=== PATIENT | female | born 1980 | race Two or more races ===

== ENCOUNTER 2022-09-11 08:07 | Emergency (ER) | payer MEDICAID, OTHER ==
[~2022-09-11] VITALS: Ht 157.5 cm; Wt 90.9 kg
[2022-09-11 08:51] LABS: Basophils # (auto) 0 10 ^3/uL (0-0.2); Basophils % (auto) 0.4 % (0.0-2.0); Eosinophils # (auto) 0 10 ^3/uL (0-0.8); Eosinophils % (auto) 0.4 % (0.0-7.0); Hemoglobin 10.5 g/dL (12.2-16.2); Monocytes # (auto) 0.5 10 ^3/uL (0-1.3); Monocytes % (auto) 8.6 % (0.0-12.0); Neutrophils # (auto) 3.8 10 ^3/uL (1.6-8.6); White Blood Cell 5.3 10^3/uL (4.4-10.8)
[2022-09-11 08:53] LABS: Hematocrit 30.9 % (36.0-46.0); Mean Corpuscular Hemoglobin 43.1 pg (28.0-32.0); Mean Corpuscular Hgb Conc. 34.1 g/dL (32.0-36.0); Mean Corpuscular Volume 126.4 fL (80.0-100.0); Neutrophils % (auto) 71.6 % (37.0-80.0); Red Blood Cells 2.44 10^6/uL (4.0-5.20); Red Cell Distribution Width 13.8 % (11.8-14.3)
[2022-09-11 09:12] LABS: INR 1.53 (0.9-1.15); Partial Thromboplastin Time 27.8 SEC (24.5-34.5)
[2022-09-11 09:20] LABS: Albumin 1.7 g/dL (3.4-5.0); Calcium 7.9 mg/dL (8.5-10.1)
[2022-09-11 09:23] LABS: BUN/Creatinine Ratio 3.2 (10.0-20.0); Bilirubin, Total 16.8 mg/dL (0.2-1.0); Total Protein 6.7 g/dL (6.4-8.2)
[2022-09-11 10:12] LABS: Potassium 2.9 mmol/L (3.5-5.1)
[2022-09-11] MEDS ORDERED: POTASSIUM CHL 20MEQ/100ML 100 ML IV ONE (10:15)
[2022-09-11] MEDS ORDERED: LACTULOSE 20Gm/30ML SOLN PO ONE (11:45)
[2022-09-11] MEDS ORDERED: LORazepam 2MG/ML-1ML VIAL IV ONE (12:00)
[2022-09-11 16:35] VITALS: BP 134/114
== END 2022-09-11 17:01 | disposition short-term general hospital (02) ==
LOC: EDBD 08:07 → ER 08:07
DX: K76.82 Hepatic encephalopathy (principal); R41.82 Altered mental status, unspecified; E11.9 Type 2 diabetes mellitus without complications; I10 Essential (primary) hypertension; Z90.49 Acquired absence of other specified parts of digestive tract
CPT/HCPCS: 36415; 70450; 71045; 80053; 82140; 82962; 83735; 83880; 84484; 85025; 85610; 85730; 93005; 96361; 96374; 99291; J2060; J3480

== ENCOUNTER 2022-11-13 15:41 | Inpatient (IN) | payer MEDICAID, OTHER ==
[~2022-11-13] VITALS: Ht 172.7 cm; Wt 100.1 kg
[2022-11-13] MEDS ORDERED: MIDAZOLAM HCL 5 MG/ML-1ML VIAL IV ONE (16:00)
[2022-11-13] MEDS ORDERED: MIDAZOLAM DRIP 50 mg/50mL 50 ML IV ONE (16:04)
[2022-11-13] MEDS ORDERED: cefTRIAXone 1GM/50ML D5W 50 ML IV ONE (16:30)
[2022-11-13] MEDS: MIDAZOLAM DRIP 50 mg/50mL 50 ML IV SCH (16:30)
[2022-11-13 16:32] VITALS: PULSE 106; RESP 16; O2SAT 100
[2022-11-13 16:36] LABS: Basophils # (auto) 0 10 ^3/uL (0-0.2); Eosinophils # (auto) 0.1 10 ^3/uL (0-0.8); Lymphocytes # (auto) 1.4 10 ^3/uL (0.4-5.4); Lymphocytes % (auto) 13.7 % (10.0-50.0); Mean Corpuscular Hgb Conc. 36.1 g/dL (32.0-36.0); Neutrophils # (auto) 7.6 10 ^3/uL (1.6-8.6); Red Blood Cells 2.52 10^6/uL (4.0-5.20)
[2022-11-13 16:37] LABS: Basophils % (auto) 0.4 % (0.0-2.0); Eosinophils % (auto) 0.8 % (0.0-7.0); Hemoglobin 9.8 g/dL (12.2-16.2); Mean Corpuscular Hemoglobin 38.8 pg (28.0-32.0); Mean Corpuscular Volume 107.4 fL (80.0-100.0); Monocytes # (auto) 1.2 10 ^3/uL (0-1.3); Monocytes % (auto) 11.9 % (0.0-12.0); Neutrophils % (auto) 73.2 % (37.0-80.0); Nucleated Red Blood Cells % 0.2 %; Red Cell Distribution Width 16.4 % (11.8-14.3); White Blood Cell 10.3 10^3/uL (4.4-10.8)
[2022-11-13 16:49] LABS: Alanine Aminotransferase 43 U/L (7-40); Albumin 1.8 g/dL (3.2-4.8); Alkaline Phosphatase 201 U/L (46-116); Aspartate Aminotransferase 257 U/L (13-40); Bilirubin, Total 13.8 mg/dL (0.2-1.0); Blood Urea Nitrogen 26 mg/dL (9-23); Calcium 7.7 mg/dL (8.7-10.4); Chloride 107 mmol/L (98-107); Glucose 65 mg/dL (74-106); Potassium 4.1 mmol/L (3.5-5.1); Sodium 137 mmol/L (136-145)
[2022-11-13 16:50] LABS: Total Protein 6.7 g/dL (5.7-8.2)
[2022-11-13 16:54] LABS: INR 1.8 (0.9-1.15); Partial Thromboplastin Time 39.8 SEC (24.5-34.5); Prothrombin Time 18.2 sec (9.3-11.8)
[2022-11-13 16:58] LABS: Urine Bacteria FEW /hpf (None Seen); Urine Blood 3+ /uL (Negative); Urine Clarity HAZY (Clear); Urine Color Brown (Yellow); Urine Mucus FEW (None Seen); Urine Protein, UAD 1+ (Negative); Urine Specific Gravity 1.017 (1.001-1.035); Urine WBC 35 /hpf (0 - 5); Urine WBC Clumps PRESENT /hpf (None Seen)
[2022-11-13 17:05] VITALS: BP 117/73; PULSE 106; RESP 16; O2SAT 99
[2022-11-13 17:17] LABS: Lactic Acid w/Reflex 2.2 mmol/L (0.4-2.0)
[2022-11-13 17:39] LABS: BUN/Creatinine Ratio 10.3 (10.0-20.0)
[2022-11-13] MEDS ORDERED: LACTULOSE 20Gm/30ML SOLN PO ONE ×2 (17:45→18:30)
[2022-11-13 18:13] LABS: Base Excess -0.8 mmol/L (-2.0-2.0)
[2022-11-13] MEDS ORDERED: PANTOPRAZOLE 40 MG/10 ML VIAL INJ IV ONE (18:30)
[2022-11-13] MEDS ORDERED: NITROGLYCERIN 0.4 MG SL TAB SL PRN (18:30)
[2022-11-13] MEDS ORDERED: MORPHINE SULFATE INJ 2 MG/ml SYRG IV PRN (18:30)
[2022-11-13 18:52] VITALS: BP 137/72; PULSE 107; RESP 22; O2SAT 99
[2022-11-13] MEDS: SODIUM CHLORIDE 0.9% 1,000 ML IV SCH (18:54)
[2022-11-13] MEDS ORDERED: DEXTROSE (50%) 50ML SYRG IV PRN (19:15)
[2022-11-13 19:26] LABS: LDL Cholesterol 32 mg/dL (< 100)
[2022-11-13 19:27] LABS: Cholesterol 77 mg/dL (< 200)
[2022-11-13 19:30] VITALS: PULSE 106; RESP 22; O2SAT 94
[2022-11-13 19:41] LABS: Triglycerides 166 mg/dL (< 150)
[2022-11-13 19:57] VITALS: BP 129/78; PULSE 111; RESP 22; O2SAT 96
[2022-11-13 19:57] LABS: Base Excess -1.7 mmol/L (-2.0-2.0)
[2022-11-13 20:20] LABS: HDL Cholesterol < 5 mg/dL (40-59)
[2022-11-13 21:54] VITALS: BP 134/76; PULSE 108; RESP 22; O2SAT 99
[2022-11-13] MEDS: InsuLIN REG 1unit/0.01ml Soln (100units/ml) SC SCH (22:00)
[2022-11-13] MEDS: ACCU-CHEK COMFORT CURVE STRIP VI SCH (22:25)
[2022-11-13] MEDS: rifAXIMin 550 MG TAB GT SCH (22:31)
[2022-11-13] MEDS: LACTULOSE 20Gm/30ML SOLN PO SCH (22:31)
[2022-11-14] VITALS (34 sets, daily range): BP systolic 104–146; BP diastolic 52–87; PULSE 73–101; RESP 14–26; TEMP 97.6–97.8; O2SAT 97–100
[2022-11-14 01:14] LABS: Lactic Acid w/Reflex 2.2 mmol/L (0.4-2.0)
[2022-11-14 05:04] LABS: Amphetamine Screen, Urine Pos (NEGATIVE); Barbiturate Scree,Urine Neg (NEGATIVE); Benzodiazephine Screen, Urine Pos (NEGATIVE); Cocaine Screen, Urine Neg (NEGATIVE)
[2022-11-14 05:05] LABS: Cannabinoid Screen, Urine Neg (NEGATIVE); Opiate Scree,Urine Neg (NEGATIVE); Phencyclidine Screen, Urine Neg (NEGATIVE)
[2022-11-14 05:57] LABS: Base Excess -0.5 mmol/L (-2.0-2.0)
[2022-11-14] MEDS: rifAXIMin 550 MG TAB GT SCH ×4 (06:04→22:00)
[2022-11-14] MEDS: LACTULOSE 20Gm/30ML SOLN PO SCH ×4 (06:04→22:00)
[2022-11-14 06:20] LABS: Alanine Aminotransferase 54 U/L (7-40); Albumin 1.7 g/dL (3.2-4.8); Alkaline Phosphatase 199 U/L (46-116); Anion Gap 7.9 (5-15); Aspartate Aminotransferase 293 U/L (13-40); Bilirubin, Total 12.3 mg/dL (0.2-1.0); Blood Urea Nitrogen 23 mg/dL (9-23); Calcium 7.5 mg/dL (8.5-10.1); Carbon Dioxide 21.1 mmol/L (20-30); Chloride 109 mmol/L (98-107); Glucose 99 mg/dL (74-106); Potassium 3.7 mmol/L (3.5-5.1); Sodium 138 mmol/L (136-145); Total Protein 6.1 g/dL (5.7-8.2)
[2022-11-14] MEDS: ACCU-CHEK COMFORT CURVE STRIP VI SCH ×4 (06:31→21:51)
[2022-11-14] MEDS: InsuLIN REG 1unit/0.01ml Soln (100units/ml) SC SCH ×4 (06:32→21:55)
[2022-11-14 07:09] LABS: BUN/Creatinine Ratio 7.8 (10.0-20.0)
[2022-11-14 08:04] LABS: Basophils # (auto) 0.1 10 ^3/uL (0-0.2); Eosinophils # (auto) 0 10 ^3/uL (0-0.8); Hematocrit 26.1 % (36.0-46.0); Hemoglobin 8.8 g/dL (12.2-16.2); Mean Corpuscular Hemoglobin 34.5 pg (28.0-32.0); Mean Corpuscular Hgb Conc. 33.8 g/dL (32.0-36.0); Red Cell Distribution Width 17.3 % (11.8-14.3)
[2022-11-14 08:06] LABS: Basophils % (auto) 0.9 % (0.0-2.0); Eosinophils % (auto) 0.4 % (0.0-7.0); Lymphocytes # (auto) 2.1 10 ^3/uL (0.4-5.4); Lymphocytes % (auto) 17.3 % (10.0-50.0); Mean Corpuscular Volume 102.1 fL (80.0-100.0); Monocytes # (auto) 1.1 10 ^3/uL (0-1.3); Monocytes % (auto) 9.4 % (0.0-12.0); Neutrophils # (auto) 8.7 10 ^3/uL (1.6-8.6); Nucleated Red Blood Cells % 0.4 %; Red Blood Cells 2.55 10^6/uL (4.0-5.20); White Blood Cell 12.1 10^3/uL (4.4-10.8)
[2022-11-14] MEDS ORDERED: cefTRIAXone 1GM/50ML D5W 50 ML IV SCH (09:00)
[2022-11-14] MEDS: PANTOPRAZOLE 40 MG/10 ML VIAL INJ IV SCH (09:41)
[2022-11-14 09:47] LABS: Urine Bacteria FEW /hpf (None Seen); Urine Blood 3+ /uL (Negative); Urine Clarity CLOUDY (Clear); Urine Color Brown (Yellow); Urine Mucus FEW (None Seen); Urine Protein, UAD 2+ (Negative); Urine Specific Gravity 1.019 (1.001-1.035); Urine WBC 1184 /hpf (0 - 5); Urine WBC Clumps PRESENT /hpf (None Seen)
[2022-11-14] MEDS: ALBUMIN 25% 50 ML IV SCH ×2 (09:59→16:28)
[2022-11-14] MEDS ORDERED: FUROSEMIDE 100 MG/10ML VIAL IV ONE (10:00)
[2022-11-14 10:16] LABS: Creatinine, Urine 227.94 mg/dL (30.0-125.0); Protein, Urine 159.3 mg/dL (0.0-11.9)
[2022-11-14 11:08] LABS: Hepatitis B Surface Antigen Negative (Negative)
[2022-11-14] MEDS: SODIUM CHLORIDE 0.9% 1,000 ML IV SCH (11:25)
[2022-11-14 11:29] LABS: Hepatitis A Ab IgM Negative
[2022-11-14 11:30] LABS: Hepatitis B Core IgM Negative; Hepatitis C Antibody Negative (Negative)
[2022-11-14] MEDS: fentaNYL Drip 2500mCg/250mlNS 250 ML IV SCH (11:30)
[2022-11-14] MEDS ORDERED: MEROPENEM 1GM IVPB 100 ML IV ONE (11:30)
[2022-11-14] MEDS ORDERED: MIDODRINE HCL 10 MG TAB PO ONE (11:30)
[2022-11-14] MEDS: MIDODRINE HCL 10 MG TAB PO SCH ×2 (12:00→16:40)
[2022-11-14] MEDS: OCTREOTIDE ACETATE 100 MCG/ML VL SUBCUT SCH ×2 (12:20→21:52)
[2022-11-14] MEDS: MEROPENEM 1GM IVPB 100 ML IV SCH ×2 (12:49→23:00)
[2022-11-14] MEDS: MIDAZOLAM DRIP 50 mg/50mL 50 ML IV SCH ×2 (16:04→19:58)
[2022-11-14] MEDS ORDERED: phytonadione 10 MG in SODIUM CHL 0.9% 50 ML IV ONE (23:15)
[2022-11-15] VITALS (110 sets, daily range): BP systolic 100–169; BP diastolic 32–108; PULSE 73–91; RESP 10–22; TEMP 97.7–98.5; O2SAT 94–100
[2022-11-15] MEDS: ALBUMIN 25% 50 ML IV SCH (01:24)
[2022-11-15] MEDS: ALBUTEROL SULF 2.5 MG/0.5ML(0.5%) NEB SOLN NEB PRN (02:29)
[2022-11-15] MEDS: MIDAZOLAM DRIP 50 mg/50mL 50 ML IV SCH ×3 (02:29→18:18)
[2022-11-15] MEDS: SODIUM CHLORIDE 0.9% 1,000 ML IV SCH ×3 (03:50→19:59)
[2022-11-15 04:31] LABS: Alanine Aminotransferase 52 U/L (7-40); Albumin 2.1 g/dL (3.2-4.8); Alkaline Phosphatase 183 U/L (46-116); Anion Gap 8.4 (5-15); Aspartate Aminotransferase 259 U/L (13-40); Bilirubin, Total 15.3 mg/dL (0.2-1.0); Blood Urea Nitrogen 24 mg/dL (9-23); Carbon Dioxide 21.6 mmol/L (20-30); Chloride 110 mmol/L (98-107); Glucose 109 mg/dL (74-106); Potassium 3.3 mmol/L (3.5-5.1); Sodium 140 mmol/L (136-145); Total Protein 6.3 g/dL (5.7-8.2)
[2022-11-15 04:43] LABS: BUN/Creatinine Ratio 7.8 (10.0-20.0)
[2022-11-15 05:17] LABS: INR 1.7 (0.9-1.15); Prothrombin Time 17.2 sec (9.3-11.8)
[2022-11-15 05:41] LABS: Basophils % (auto) 0.5 % (0.0-2.0); Eosinophils # (auto) 0.1 10 ^3/uL (0-0.8); Red Blood Cells 2.35 10^6/uL (4.0-5.20)
[2022-11-15 05:42] LABS: Basophils # (auto) 0 10 ^3/uL (0-0.2); Hematocrit 23.9 % (36.0-46.0); Hemoglobin 8.1 g/dL (12.2-16.2); Lymphocytes # (auto) 1.9 10 ^3/uL (0.4-5.4); Mean Corpuscular Hemoglobin 34.4 pg (28.0-32.0); Mean Corpuscular Hgb Conc. 33.7 g/dL (32.0-36.0); Mean Corpuscular Volume 102.1 fL (80.0-100.0); Monocytes % (auto) 8.7 % (0.0-12.0); Neutrophils % (auto) 72.8 % (37.0-80.0); Nucleated Red Blood Cells % 0.2 %; Red Cell Distribution Width 17.1 % (11.8-14.3)
[2022-11-15] MEDS: LACTULOSE 20Gm/30ML SOLN PO SCH ×3 (06:00→22:24)
[2022-11-15] MEDS: InsuLIN REG 1unit/0.01ml Soln (100units/ml) SC SCH ×4 (07:00→22:00)
[2022-11-15] MEDS: rifAXIMin 550 MG TAB GT SCH ×3 (07:01→22:24)
[2022-11-15] MEDS: MEROPENEM 1GM IVPB 100 ML IV SCH ×3 (07:01→22:24)
[2022-11-15] MEDS: OCTREOTIDE ACETATE 100 MCG/ML VL SUBCUT SCH ×3 (07:02→22:25)
[2022-11-15] MEDS: MIDODRINE HCL 10 MG TAB PO SCH ×3 (07:02→22:32)
[2022-11-15] MEDS: ACCU-CHEK COMFORT CURVE STRIP VI SCH ×4 (07:02→22:25)
[2022-11-15 07:24] LABS: Base Excess -3.2 mmol/L (-2.0-2.0)
[2022-11-15] MEDS: PANTOPRAZOLE 40 MG/10 ML VIAL INJ IV SCH (09:37)
[2022-11-15] MEDS: fentaNYL Drip 2500mCg/250mlNS 250 ML IV SCH (11:53)
[2022-11-15] MEDS ORDERED: FUROSEMIDE 100 MG/10ML VIAL IV ONE (12:00)
[2022-11-15] MEDS: POTASSIUM CHL 20MEQ/100ML 100 ML IV SCH ×3 (12:48→16:43)
[2022-11-15] MEDS ORDERED: Nepro With Carb Steady 1 Liter Bottle GT SCH (15:45)
[2022-11-15] MEDS ORDERED: THIAMINE 100mg/ml INJ (200mg/2ml VIAL) IV ONE (16:45)
[2022-11-15] MEDS ORDERED: VANCOMYCIN PER PHARMACY 0 MG IV SCH (23:30)
[2022-11-15] MEDS ORDERED: VANCOMYCIN 1GM/250ML 250 ML IV ONE (23:45)
[2022-11-16] VITALS (107 sets, daily range): BP systolic 102–143; BP diastolic 40–84; PULSE 71–91; RESP 12–18; TEMP 95.9–99.9; O2SAT 93–100
[2022-11-16] MEDS: MIDAZOLAM DRIP 50 mg/50mL 50 ML IV SCH ×4 (02:08→21:38)
[2022-11-16 04:32] LABS: Alanine Aminotransferase 78 U/L (7-40); Alkaline Phosphatase 211 U/L (46-116); Anion Gap 7.5 (5-15); Blood Urea Nitrogen 33 mg/dL (9-23); Calcium 8.2 mg/dL (8.7-10.4); Carbon Dioxide 22.5 mmol/L (20-30); Chloride 111 mmol/L (98-107); Glucose 84 mg/dL (74-106); Potassium 3.8 mmol/L (3.5-5.1); Sodium 141 mmol/L (136-145)
[2022-11-16 04:33] LABS: Albumin 2.1 g/dL (3.2-4.8)
[2022-11-16 04:34] LABS: Aspartate Aminotransferase 317 U/L (13-40); Bilirubin, Total 16.6 mg/dL (0.2-1.0); Total Protein 6.4 g/dL (5.7-8.2)
[2022-11-16 04:35] LABS: Hemoglobin 8.2 g/dL (12.2-16.2)
[2022-11-16 04:38] LABS: Hematocrit 23.3 % (36.0-46.0); Mean Corpuscular Hemoglobin 37.6 pg (28.0-32.0); Mean Corpuscular Hgb Conc. 35.3 g/dL (32.0-36.0); Mean Corpuscular Volume 106.7 fL (80.0-100.0); Red Blood Cells 2.18 10^6/uL (4.0-5.20); Red Cell Distribution Width 16.9 % (11.8-14.3); White Blood Cell 9.8 10^3/uL (4.4-10.8)
[2022-11-16 04:44] LABS: Basophils % (manual) 0 (0.0-2.0); Blast Cells 0; Eosinophils % (manual) 0 (0-7); Metamyelocytes % 0; Myelocytes % 0; Promyelocytes % 0; Reactive Lymphocytes 0
[2022-11-16 04:45] LABS: BUN/Creatinine Ratio 9.6 (10.0-20.0)
[2022-11-16] MEDS: rifAXIMin 550 MG TAB GT SCH ×3 (05:14→21:42)
[2022-11-16] MEDS: LACTULOSE 20Gm/30ML SOLN PO SCH ×3 (05:15→23:40)
[2022-11-16] MEDS: MIDODRINE HCL 10 MG TAB PO SCH ×3 (05:15→18:35)
[2022-11-16] MEDS: ACCU-CHEK COMFORT CURVE STRIP VI SCH ×4 (05:16→21:42)
[2022-11-16] MEDS: OCTREOTIDE ACETATE 100 MCG/ML VL SUBCUT SCH ×3 (05:16→21:42)
[2022-11-16] MEDS: InsuLIN REG 1unit/0.01ml Soln (100units/ml) SC SCH ×4 (05:43→21:48)
[2022-11-16 05:45] LABS: Band Neutrophils % (manual) 1; Lymphocytes % (manual) 12 (10.0-50.0); Monocytes % (manual) 5 (0-12)
[2022-11-16 05:47] LABS: Platelet Estimate Adequate
[2022-11-16 07:45] LABS: Base Excess -5.2 mmol/L (-2.0-2.0)
[2022-11-16] MEDS: THIAMINE 100mg/ml INJ (200mg/2ml VIAL) IV SCH (09:57)
[2022-11-16] MEDS: PANTOPRAZOLE 40 MG/10 ML VIAL INJ IV SCH (09:58)
[2022-11-16] MEDS ORDERED: methylPREDNISolone SOD SUCC 40 MG/ML VL IV SCH (10:00)
[2022-11-16] MEDS: fentaNYL Drip 2500mCg/250mlNS 250 ML IV SCH (10:03)
[2022-11-16 10:07] LABS: Anti-Nuclear Antibody Direct Negative (Negative)
[2022-11-16] MEDS: MEROPENEM 1GM IVPB 100 ML IV SCH ×2 (14:28→21:42)
[2022-11-16] MEDS ORDERED: BUMETANIDE 2.5mg/10ml (0.25 mg/ml) INJ IV ONE (14:45)
[2022-11-16] MEDS ORDERED: phytonadione 10 MG in SODIUM CHL 0.9% 50 ML IV ONE (21:30)
[2022-11-17] VITALS (104 sets, daily range): BP systolic 82–132; BP diastolic 27–74; PULSE 51–86; RESP 12–17; TEMP 95.7–99.9; O2SAT 93–99
[2022-11-17 04:55] LABS: INR 1.71 (0.9-1.15); Partial Thromboplastin Time 36.6 SEC (24.5-34.5); Prothrombin Time 17.3 sec (9.3-11.8)
[2022-11-17 05:04] LABS: Alanine Aminotransferase 80 U/L (7-40); Albumin 1.9 g/dL (3.2-4.8); Alkaline Phosphatase 237 U/L (46-116); Anion Gap 8.1 (5-15); Aspartate Aminotransferase 307 U/L (13-40); Bilirubin, Total 13.9 mg/dL (0.2-1.0); Calcium 7.8 mg/dL (8.7-10.4); Carbon Dioxide 21.9 mmol/L (20-30); Chloride 111 mmol/L (98-107); Glucose 103 mg/dL (74-106); Potassium 3.9 mmol/L (3.5-5.1); Sodium 141 mmol/L (136-145); Total Protein 5.9 g/dL (5.7-8.2)
[2022-11-17 05:32] LABS: BUN/Creatinine Ratio 8.8 (10.0-20.0); Blood Urea Nitrogen 33 mg/dL (9-23)
[2022-11-17] MEDS: LACTULOSE 20Gm/30ML SOLN PO SCH ×5 (05:33→23:45)
[2022-11-17] MEDS: MIDODRINE HCL 10 MG TAB PO SCH ×3 (05:33→16:42)
[2022-11-17] MEDS: rifAXIMin 550 MG TAB GT SCH ×3 (05:33→21:40)
[2022-11-17] MEDS: InsuLIN REG 1unit/0.01ml Soln (100units/ml) SC SCH ×4 (05:34→21:42)
[2022-11-17] MEDS: OCTREOTIDE ACETATE 100 MCG/ML VL SUBCUT SCH ×3 (05:54→21:41)
[2022-11-17] MEDS: ACCU-CHEK COMFORT CURVE STRIP VI SCH ×4 (05:54→21:40)
[2022-11-17 06:00] LABS: Basophils # (auto) 0 10 ^3/uL (0-0.2); Basophils % (auto) 0.2 % (0.0-2.0); Eosinophils # (auto) 0 10 ^3/uL (0-0.8); Hematocrit 23.3 % (36.0-46.0); Hemoglobin 7.7 g/dL (12.2-16.2); Lymphocytes # (auto) 1.1 10 ^3/uL (0.4-5.4); Lymphocytes % (auto) 10.5 % (10.0-50.0); Mean Corpuscular Hemoglobin 33.9 pg (28.0-32.0); Mean Corpuscular Volume 102.7 fL (80.0-100.0); Monocytes # (auto) 0.2 10 ^3/uL (0-1.3); Neutrophils # (auto) 8.7 10 ^3/uL (1.6-8.6); Neutrophils % (auto) 87.3 % (37.0-80.0); Nucleated Red Blood Cells % 0.3 %; Red Blood Cells 2.27 10^6/uL (4.0-5.20); Red Cell Distribution Width 17.1 % (11.8-14.3)
[2022-11-17 07:21] LABS: Base Excess -2.9 mmol/L (-2.0-2.0)
[2022-11-17] MEDS: THIAMINE 100mg/ml INJ (200mg/2ml VIAL) IV SCH (08:40)
[2022-11-17] MEDS: PANTOPRAZOLE 40 MG/10 ML VIAL INJ IV SCH (08:40)
[2022-11-17] MEDS: methylPREDNISolone SOD SUCC 40 MG/ML VL IV SCH (08:40)
[2022-11-17] MEDS: MEROPENEM 1GM IVPB 100 ML IV SCH ×2 (08:41→21:40)
[2022-11-17] MEDS: MIDAZOLAM DRIP 50 mg/50mL 50 ML IV SCH ×2 (08:41→23:45)
[2022-11-17] MEDS: fentaNYL Drip 2500mCg/250mlNS 250 ML IV SCH (09:01)
[2022-11-17] MEDS ORDERED: VANCOMYCIN 1GM/250ML 250 ML IV ONE (10:30)
[2022-11-17] MEDS: ALBUMIN 25% 100 ML IV SCH ×2 (15:00→23:45)
[2022-11-17] MEDS: FUROSEMIDE INJECTION 100 MG in SODIUM CHL 0.9% 100 ML IV SCH (16:35)
[2022-11-17] MEDS: NOREPINEPHRINE 8 MG/250ML KIT 250 ML IV SCH (19:30)
[2022-11-17] MEDS: MUPIROCIN 2% OINT 15gm or 22gm FOR MRSA NARES TOP SCH (21:42)
[2022-11-18] VITALS (107 sets, daily range): BP systolic 93–122; BP diastolic 37–63; PULSE 49–94; RESP 13–18; TEMP 93–99.5; O2SAT 91–99
[2022-11-18] MEDS: FUROSEMIDE INJECTION 100 MG in SODIUM CHL 0.9% 100 ML IV SCH ×7 (00:02→23:34)
[2022-11-18 05:13] LABS: % Iron Saturation 24.1 % (15-50)
[2022-11-18 05:32] LABS: Alanine Aminotransferase 91 U/L (7-40); Albumin 2.6 g/dL (3.2-4.8); Alkaline Phosphatase 231 U/L (46-116); Anion Gap 7.6 (5-15); Aspartate Aminotransferase 345 U/L (13-40); Blood Urea Nitrogen 42 mg/dL (9-23); Calcium 8.2 mg/dL (8.7-10.4); Carbon Dioxide 21.4 mmol/L (20-30); Chloride 111 mmol/L (98-107); Glucose 123 mg/dL (74-106); Potassium 3.4 mmol/L (3.5-5.1); Sodium 140 mmol/L (136-145)
[2022-11-18 05:33] LABS: Bilirubin, Total 15.8 mg/dL (0.2-1.0); Total Protein 6.3 g/dL (5.7-8.2)
[2022-11-18 05:39] LABS: BUN/Creatinine Ratio 9.9 (10.0-20.0)
[2022-11-18] MEDS: ACCU-CHEK COMFORT CURVE STRIP VI SCH ×4 (05:52→21:22)
[2022-11-18] MEDS: InsuLIN REG 1unit/0.01ml Soln (100units/ml) SC SCH ×4 (05:54→21:50)
[2022-11-18 06:09] LABS: Eosinophils # (auto) 0 10 ^3/uL (0-0.8); Hemoglobin 7.2 g/dL (12.2-16.2)
[2022-11-18 06:11] LABS: Basophils # (auto) 0.1 10 ^3/uL (0-0.2); Basophils % (auto) 0.4 % (0.0-2.0); Hematocrit 21.6 % (36.0-46.0); Lymphocytes # (auto) 1.4 10 ^3/uL (0.4-5.4); Lymphocytes % (auto) 10.5 % (10.0-50.0); Mean Corpuscular Hemoglobin 34.2 pg (28.0-32.0); Mean Corpuscular Hgb Conc. 33.1 g/dL (32.0-36.0); Mean Corpuscular Volume 103.3 fL (80.0-100.0); Monocytes # (auto) 0.4 10 ^3/uL (0-1.3); Monocytes % (auto) 2.8 % (0.0-12.0); Neutrophils # (auto) 11.7 10 ^3/uL (1.6-8.6); Neutrophils % (auto) 86.3 % (37.0-80.0); Nucleated Red Blood Cells % 0.2 %; Red Blood Cells 2.09 10^6/uL (4.0-5.20); Red Cell Distribution Width 17.4 % (11.8-14.3); White Blood Cell 13.6 10^3/uL (4.4-10.8)
[2022-11-18] MEDS: LACTULOSE 20Gm/30ML SOLN PO SCH ×4 (06:33→23:21)
[2022-11-18] MEDS: rifAXIMin 550 MG TAB GT SCH ×3 (06:33→21:20)
[2022-11-18] MEDS: MIDODRINE HCL 10 MG TAB PO SCH ×3 (06:34→16:52)
[2022-11-18] MEDS: OCTREOTIDE ACETATE 100 MCG/ML VL SUBCUT SCH ×3 (06:34→21:21)
[2022-11-18] MEDS: ALBUMIN 25% 100 ML IV SCH (06:34)
[2022-11-18] MEDS: fentaNYL Drip 2500mCg/250mlNS 250 ML IV SCH (06:37)
[2022-11-18] MEDS ORDERED: SODIUM CHL 0.9% 1000 ML BAG XX ONE (07:00)
[2022-11-18 07:35] LABS: Base Excess -3.1 mmol/L (-2.0-2.0)
[2022-11-18] MEDS: DOPamine 1600MCG/ML D5W 250 ML IV SCH ×2 (09:00→16:53)
[2022-11-18] MEDS: ACETYLCYSTEINE 10 %(100MG/ML) SOL 4ML NEB SCH ×3 (09:00→19:10)
[2022-11-18] MEDS: ALBUTEROL SULF 2.5 MG/0.5ML(0.5%) NEB SOLN NEB PRN (09:01)
[2022-11-18] MEDS: THIAMINE 100mg/ml INJ (200mg/2ml VIAL) IV SCH (09:30)
[2022-11-18] MEDS: methylPREDNISolone SOD SUCC 40 MG/ML VL IV SCH (09:30)
[2022-11-18] MEDS: PANTOPRAZOLE 40 MG/10 ML VIAL INJ IV SCH (09:30)
[2022-11-18] MEDS: MEROPENEM 1GM IVPB 100 ML IV SCH (09:30)
[2022-11-18] MEDS: MUPIROCIN 2% OINT 15gm or 22gm FOR MRSA NARES TOP SCH ×2 (09:31→21:23)
[2022-11-18] MEDS: NOREPINEPHRINE 8 MG/250ML KIT 250 ML IV SCH (13:04)
[2022-11-18] MEDS: SODIUM FERR GLUC 62.5MG/5ML 125 MG in SODIUM CHL 0.9% 100 ML IV SCH (13:08)
[2022-11-18] MEDS: ALBUTEROL SULF 2.5 MG/0.5ML(0.5%) NEB SOLN NEB SCH ×2 (13:50→19:09)
[2022-11-18] MEDS: IPRATROPIUM BROM 0.5 MG/2.5ML INH SOL NEB SCH ×2 (13:51→19:10)
[2022-11-18] MEDS ORDERED: VANCOMYCIN 500 MG in D5W 5% 100 ML IV ONE (18:00)
[2022-11-18] MEDS: MIDAZOLAM DRIP 50 mg/50mL 50 ML IV SCH (18:35)
[2022-11-18] MEDS: MEROPENEM 500MG IVPB 50 ML IV SCH (21:22)
[2022-11-19] VITALS (109 sets, daily range): BP systolic 99–141; BP diastolic 40–85; PULSE 53–83; RESP 14–20; TEMP 95.7–99; O2SAT 91–99
[2022-11-19] MEDS: ALBUTEROL SULF 2.5 MG/0.5ML(0.5%) NEB SOLN NEB SCH ×4 (00:37→18:10)
[2022-11-19] MEDS: ACETYLCYSTEINE 10 %(100MG/ML) SOL 4ML NEB SCH (00:37)
[2022-11-19] MEDS: IPRATROPIUM BROM 0.5 MG/2.5ML INH SOL NEB SCH ×4 (00:37→18:10)
[2022-11-19] MEDS: FUROSEMIDE INJECTION 100 MG in SODIUM CHL 0.9% 100 ML IV SCH ×6 (03:21→21:22)
[2022-11-19] MEDS: DOPamine 1600MCG/ML D5W 250 ML IV SCH ×2 (03:59→10:26)
[2022-11-19 04:07] LABS: Basophils # (auto) 0 10 ^3/uL (0-0.2); Basophils % (auto) 0.2 % (0.0-2.0); Eosinophils # (auto) 0 10 ^3/uL (0-0.8); Hematocrit 29.8 % (36.0-46.0); Hemoglobin 10.5 g/dL (12.2-16.2); Lymphocytes # (auto) 0.4 10 ^3/uL (0.4-5.4); Lymphocytes % (auto) 4.3 % (10.0-50.0); Mean Corpuscular Hemoglobin 37.5 pg (28.0-32.0); Mean Corpuscular Hgb Conc. 35.3 g/dL (32.0-36.0); Mean Corpuscular Volume 106.4 fL (80.0-100.0); Monocytes # (auto) 0.3 10 ^3/uL (0-1.3); Neutrophils # (auto) 8.5 10 ^3/uL (1.6-8.6); Neutrophils % (auto) 92.5 % (37.0-80.0); Nucleated Red Blood Cells % 0.4 %; Red Cell Distribution Width 16.7 % (11.8-14.3); White Blood Cell 9.2 10^3/uL (4.4-10.8)
[2022-11-19] MEDS: rifAXIMin 550 MG TAB GT SCH ×3 (05:06→21:23)
[2022-11-19] MEDS: MIDODRINE HCL 10 MG TAB PO SCH ×3 (05:06→17:21)
[2022-11-19] MEDS: LACTULOSE 20Gm/30ML SOLN PO SCH ×3 (05:07→17:21)
[2022-11-19] MEDS: OCTREOTIDE ACETATE 100 MCG/ML VL SUBCUT SCH ×3 (05:07→21:23)
[2022-11-19] MEDS: ACCU-CHEK COMFORT CURVE STRIP VI SCH ×4 (06:10→21:23)
[2022-11-19] MEDS: InsuLIN REG 1unit/0.01ml Soln (100units/ml) SC SCH ×4 (06:11→21:39)
[2022-11-19] MEDS: MIDAZOLAM DRIP 50 mg/50mL 50 ML IV SCH (06:50)
[2022-11-19] MEDS: PANTOPRAZOLE 40 MG/10 ML VIAL INJ IV SCH (08:13)
[2022-11-19] MEDS: MEROPENEM 500MG IVPB 50 ML IV SCH ×2 (08:13→21:24)
[2022-11-19] MEDS: methylPREDNISolone SOD SUCC 40 MG/ML VL IV SCH (08:13)
[2022-11-19] MEDS: THIAMINE 100mg/ml INJ (200mg/2ml VIAL) IV SCH (08:13)
[2022-11-19] MEDS: MUPIROCIN 2% OINT 15gm or 22gm FOR MRSA NARES TOP SCH ×2 (08:14→21:24)
[2022-11-19 08:28] LABS: Base Excess -0.6 mmol/L (-2.0-2.0)
[2022-11-19] MEDS: NOREPINEPHRINE 8 MG/250ML KIT 250 ML IV SCH (10:26)
[2022-11-19 10:32] LABS: Alanine Aminotransferase 99 U/L (7-40); Albumin 2.7 g/dL (3.2-4.8); Alkaline Phosphatase 223 U/L (46-116); Anion Gap 11.5 (5-15); Aspartate Aminotransferase 345 U/L (13-40); Bilirubin, Total 16.3 mg/dL (0.2-1.0); Blood Urea Nitrogen 41 mg/dL (9-23); Calcium 8.3 mg/dL (8.5-10.1); Carbon Dioxide 20.5 mmol/L (20-30); Chloride 111 mmol/L (98-107); Glucose 153 mg/dL (74-106); Potassium 3.3 mmol/L (3.5-5.1); Sodium 143 mmol/L (136-145); Total Protein 6.5 g/dL (5.7-8.2)
[2022-11-19 10:35] LABS: BUN/Creatinine Ratio 10.7 (10.0-20.0)
[2022-11-19] MEDS: fentaNYL Drip 2500mCg/250mlNS 250 ML IV SCH (11:30)
[2022-11-19] MEDS: SODIUM FERR GLUC 62.5MG/5ML 125 MG in SODIUM CHL 0.9% 100 ML IV SCH (12:00)
[2022-11-20] VITALS (109 sets, daily range): BP systolic 100–165; BP diastolic 44–97; PULSE 55–95; RESP 11–21; TEMP 96.3–98.8; O2SAT 90–100
[2022-11-20] MEDS: ALBUTEROL SULF 2.5 MG/0.5ML(0.5%) NEB SOLN NEB SCH ×4 (00:08→18:55)
[2022-11-20] MEDS: IPRATROPIUM BROM 0.5 MG/2.5ML INH SOL NEB SCH ×4 (00:08→18:55)
[2022-11-20] MEDS: FUROSEMIDE INJECTION 100 MG in SODIUM CHL 0.9% 100 ML IV SCH ×8 (01:10→22:06)
[2022-11-20] MEDS: LACTULOSE 20Gm/30ML SOLN PO SCH ×4 (01:32→19:51)
[2022-11-20] MEDS: DOPamine 1600MCG/ML D5W 250 ML IV SCH ×3 (02:32→21:54)
[2022-11-20 04:56] LABS: Alanine Aminotransferase 100 U/L (7-40); Albumin 2.6 g/dL (3.2-4.8); Alkaline Phosphatase 245 U/L (46-116); Anion Gap 7.1 (5-15); Aspartate Aminotransferase 306 U/L (13-40); Bilirubin, Total 16.7 mg/dL (0.2-1.0); Blood Urea Nitrogen 49 mg/dL (9-23); Calcium 8.5 mg/dL (8.7-10.4); Carbon Dioxide 23.9 mmol/L (20-30); Chloride 112 mmol/L (98-107); Glucose 138 mg/dL (74-106); Potassium 3.1 mmol/L (3.5-5.1); Sodium 143 mmol/L (136-145); Total Protein 6.3 g/dL (5.7-8.2)
[2022-11-20 05:01] LABS: BUN/Creatinine Ratio 11.8 (10.0-20.0)
[2022-11-20] MEDS: MIDODRINE HCL 10 MG TAB PO SCH ×3 (05:15→19:51)
[2022-11-20] MEDS: rifAXIMin 550 MG TAB GT SCH ×3 (05:15→21:54)
[2022-11-20] MEDS: OCTREOTIDE ACETATE 100 MCG/ML VL SUBCUT SCH ×3 (05:16→21:53)
[2022-11-20] MEDS: ACCU-CHEK COMFORT CURVE STRIP VI SCH ×4 (05:16→21:53)
[2022-11-20] MEDS: InsuLIN REG 1unit/0.01ml Soln (100units/ml) SC SCH ×4 (05:18→22:00)
[2022-11-20 07:43] LABS: Base Excess -2.1 mmol/L (-2.0-2.0)
[2022-11-20 07:43] LABS: Mean Corpuscular Volume 105.3 fL (80.0-100.0); Red Blood Cells 2.28 10^6/uL (4.0-5.20); Red Cell Distribution Width 19.1 % (11.8-14.3); White Blood Cell 18.3 10^3/uL (4.4-10.8)
[2022-11-20 07:44] LABS: Mean Corpuscular Hgb Conc. 33.3 g/dL (32.0-36.0)
[2022-11-20 07:45] LABS: Band Neutrophils % (manual) 0; Basophils % (manual) 0 (0.0-2.0); Blast Cells 0; Eosinophils % (manual) 0 (0-7); Metamyelocytes % 0; Monocytes % (manual) 0 (0-12); Myelocytes % 0; Promyelocytes % 0; Reactive Lymphocytes 0
[2022-11-20 09:02] LABS: Lymphocytes % (manual) 5 (10.0-50.0)
[2022-11-20 09:03] LABS: Anisocytosis Slight; Hypochromia Slight; Platelet Estimate Decreased
[2022-11-20 09:05] LABS: Macrocytosis Slight
[2022-11-20] MEDS ORDERED: SODIUM CHL 0.9% 1000 ML BAG XX ONE (09:45)
[2022-11-20] MEDS ORDERED: ALBUMIN 25% 100 ML IV PRN (09:45)
[2022-11-20] MEDS: MEROPENEM 500MG IVPB 50 ML IV SCH ×2 (10:47→21:54)
[2022-11-20] MEDS: THIAMINE 100mg/ml INJ (200mg/2ml VIAL) IV SCH (10:48)
[2022-11-20] MEDS: methylPREDNISolone SOD SUCC 40 MG/ML VL IV SCH (10:48)
[2022-11-20] MEDS: PANTOPRAZOLE 40 MG/10 ML VIAL INJ IV SCH (10:48)
[2022-11-20] MEDS: MUPIROCIN 2% OINT 15gm or 22gm FOR MRSA NARES TOP SCH ×2 (10:52→21:55)
[2022-11-20] MEDS ORDERED: VANCOMYCIN 500 MG in D5W 5% 100 ML IV ONE (18:00)
[2022-11-20 19:00] LABS: INR 1.85 (0.9-1.15); Prothrombin Time 18.7 sec (9.3-11.8)
[2022-11-20] MEDS: NOREPINEPHRINE 8 MG/250ML KIT 250 ML IV SCH (19:30)
[2022-11-20] MEDS: fentaNYL Drip 2500mCg/250mlNS 250 ML IV SCH (19:49)
[2022-11-20] MEDS: MIDAZOLAM DRIP 50 mg/50mL 50 ML IV SCH (19:50)
[2022-11-20] MEDS: SODIUM FERR GLUC 62.5MG/5ML 125 MG in SODIUM CHL 0.9% 100 ML IV SCH (19:51)
[2022-11-20] MEDS ORDERED: EPOETIN ALFA-EPBX 10,000 UNIT/1ML VIAL SC ONE (21:00)
[2022-11-20 22:00] LABS: Hemoglobin 7.3 g/dL (12.2-16.2)
[2022-11-20 22:06] LABS: Mean Corpuscular Volume 104.7 fL (80.0-100.0)
[2022-11-20 22:08] LABS: Hematocrit 21.5 % (36.0-46.0); Mean Corpuscular Hemoglobin 35.5 pg (28.0-32.0); Mean Corpuscular Hgb Conc. 33.9 g/dL (32.0-36.0); Red Blood Cells 2.05 10^6/uL (4.0-5.20); Red Cell Distribution Width 17.5 % (11.8-14.3)
[2022-11-20 22:10] LABS: Basophils % (manual) 0 (0.0-2.0); Blast Cells 0; Eosinophils % (manual) 0 (0-7); Metamyelocytes % 0; Myelocytes % 0; Promyelocytes % 0; Reactive Lymphocytes 0
[2022-11-20 22:39] LABS: Band Neutrophils % (manual) 6; Lymphocytes % (manual) 4 (10.0-50.0); Monocytes % (manual) 2 (0-12)
[2022-11-20 22:40] LABS: Anisocytosis Moderate; Macrocytosis Slight; Platelet Estimate Decreased
[2022-11-20] MEDS ORDERED: LACTULOSE 10g/15ml SOLN 473ML PR ONE (23:00)
[2022-11-21] VITALS (106 sets, daily range): BP systolic 95–191; BP diastolic 42–99; PULSE 72–100; RESP 14–18; TEMP 92.5–98.8; O2SAT 89–100
[2022-11-21] MEDS: FUROSEMIDE INJECTION 100 MG in SODIUM CHL 0.9% 100 ML IV SCH ×4 (00:40→11:41)
[2022-11-21] MEDS: IPRATROPIUM BROM 0.5 MG/2.5ML INH SOL NEB SCH ×4 (00:54→18:16)
[2022-11-21] MEDS: ALBUTEROL SULF 2.5 MG/0.5ML(0.5%) NEB SOLN NEB SCH ×4 (00:54→18:16)
[2022-11-21 03:52] LABS: Basophils # (auto) 0 10 ^3/uL (0-0.2); Basophils % (auto) 0.1 % (0.0-2.0); Eosinophils # (auto) 0 10 ^3/uL (0-0.8); Hemoglobin 7.4 g/dL (12.2-16.2); Lymphocytes # (auto) 0.8 10 ^3/uL (0.4-5.4); Neutrophils # (auto) 20.8 10 ^3/uL (1.6-8.6); White Blood Cell 22.3 10^3/uL (4.4-10.8)
[2022-11-21 03:55] LABS: Hematocrit 20.4 % (36.0-46.0); Lymphocytes % (auto) 3.7 % (10.0-50.0); Mean Corpuscular Hemoglobin 40.8 pg (28.0-32.0); Mean Corpuscular Hgb Conc. 36.4 g/dL (32.0-36.0); Monocytes # (auto) 0.6 10 ^3/uL (0-1.3); Monocytes % (auto) 2.8 % (0.0-12.0); Neutrophils % (auto) 93.4 % (37.0-80.0); Nucleated Red Blood Cells % 0.6 %; Red Blood Cells 1.82 10^6/uL (4.0-5.20); Red Cell Distribution Width 17.6 % (11.8-14.3)
[2022-11-21 04:13] LABS: Alanine Aminotransferase 102 U/L (7-40); Albumin 3.1 g/dL (3.2-4.8); Alkaline Phosphatase 227 U/L (46-116); Anion Gap 9.2 (5-15); Aspartate Aminotransferase 356 U/L (13-40); Calcium 8.7 mg/dL (8.7-10.4); Carbon Dioxide 26.8 mmol/L (20-30); Chloride 107 mmol/L (98-107); Glucose 128 mg/dL (74-106); Potassium 3.4 mmol/L (3.5-5.1); Sodium 143 mmol/L (136-145)
[2022-11-21 04:14] LABS: Total Protein 6.5 g/dL (5.7-8.2)
[2022-11-21 04:17] LABS: INR 1.92 (0.9-1.15); Partial Thromboplastin Time 39.6 SEC (24.5-34.5); Prothrombin Time 19.3 sec (9.3-11.8)
[2022-11-21 04:22] LABS: BUN/Creatinine Ratio 10.7 (10.0-20.0)
[2022-11-21 04:34] LABS: Blood Urea Nitrogen 32 mg/dL (9-23)
[2022-11-21] MEDS: rifAXIMin 550 MG TAB GT SCH ×3 (04:35→21:45)
[2022-11-21] MEDS: MIDODRINE HCL 10 MG TAB PO SCH ×3 (04:36→18:00)
[2022-11-21] MEDS: LACTULOSE 20Gm/30ML SOLN PO SCH ×3 (04:36→12:00)
[2022-11-21] MEDS: ACCU-CHEK COMFORT CURVE STRIP VI SCH ×3 (05:18→23:41)
[2022-11-21] MEDS: OCTREOTIDE ACETATE 100 MCG/ML VL SUBCUT SCH ×3 (05:18→21:44)
[2022-11-21] MEDS: InsuLIN REG 1unit/0.01ml Soln (100units/ml) SC SCH ×3 (05:20→23:42)
[2022-11-21] MEDS ORDERED: SODIUM CHL 0.9% 1000 ML BAG XX ONE (07:00)
[2022-11-21 07:20] LABS: Base Excess 0.3 mmol/L (-2.0-2.0)
[2022-11-21] MEDS: DOPamine 1600MCG/ML D5W 250 ML IV SCH ×2 (09:41→20:04)
[2022-11-21] MEDS: MEROPENEM 500MG IVPB 50 ML IV SCH ×2 (10:22→21:43)
[2022-11-21] MEDS: PANTOPRAZOLE 40 MG/10 ML VIAL INJ IV SCH (10:22)
[2022-11-21 10:23] LABS: Hepatitis B Surface Antigen Negative (Negative)
[2022-11-21] MEDS: THIAMINE 100mg/ml INJ (200mg/2ml VIAL) IV SCH (10:23)
[2022-11-21] MEDS: MUPIROCIN 2% OINT 15gm or 22gm FOR MRSA NARES TOP SCH ×2 (10:24→21:44)
[2022-11-21] MEDS: methylPREDNISolone SOD SUCC 40 MG/ML VL IV SCH (10:25)
[2022-11-21 10:44] LABS: Hepatitis A Ab IgM Negative
[2022-11-21 10:45] LABS: Hepatitis B Core IgM Negative; Hepatitis C Antibody Negative (Negative)
[2022-11-21] MEDS: SODIUM FERR GLUC 62.5MG/5ML 125 MG in SODIUM CHL 0.9% 100 ML IV SCH (12:12)
[2022-11-21] MEDS ORDERED: CLINIMIX PER PHARMACY 0 ML IV SCH (13:30)
[2022-11-21 14:39] LABS: Phosphorus 4.6 mg/dL (2.4-5.1)
[2022-11-21] MEDS: MIDAZOLAM DRIP 50 mg/50mL 50 ML IV SCH (16:00)
[2022-11-21] MEDS: fentaNYL Drip 2500mCg/250mlNS 250 ML IV SCH (18:05)
[2022-11-21] MEDS: NOREPINEPHRINE 8 MG/250ML KIT 250 ML IV SCH (19:30)
[2022-11-21] MEDS ORDERED: AMINO ACID INFUSION IN D10W 1,000 ML IV NR (20:00)
[2022-11-21] MEDS ORDERED: DEXTROSE (50%) 50ML SYRG IV SCH (20:00)
[2022-11-21] MEDS: LACTULOSE 10g/15ml SOLN 473ML PR SCH (21:45)
[2022-11-22] VITALS (114 sets, daily range): BP systolic 100–160; BP diastolic 48–99; PULSE 70–107; RESP 15–19; TEMP 92.1–98.6; O2SAT 90–100
[2022-11-22] MEDS ORDERED: LACTULOSE 10g/15ml SOLN 473ML PR SCH
[2022-11-22] MEDS: ALBUTEROL SULF 2.5 MG/0.5ML(0.5%) NEB SOLN NEB SCH ×4 (00:14→18:12)
[2022-11-22] MEDS: IPRATROPIUM BROM 0.5 MG/2.5ML INH SOL NEB SCH ×4 (00:14→18:12)
[2022-11-22 05:09] LABS: Chloride 105 mmol/L (98-107); Potassium 3.4 mmol/L (3.5-5.1); Sodium 144 mmol/L (136-145)
[2022-11-22 05:10] LABS: Anion Gap 9.8 (5-15); Calcium 8.9 mg/dL (8.5-10.1); Carbon Dioxide 29.2 mmol/L (20-30)
[2022-11-22 05:15] LABS: Blood Urea Nitrogen 28 mg/dL (9-23); Glucose 207 mg/dL (74-106)
[2022-11-22 05:17] LABS: Phosphorus 4.1 mg/dL (2.4-5.1)
[2022-11-22 05:28] LABS: BUN/Creatinine Ratio 12.5 (10.0-20.0)
[2022-11-22] MEDS: rifAXIMin 550 MG TAB GT SCH ×3 (05:53→21:52)
[2022-11-22] MEDS: OCTREOTIDE ACETATE 100 MCG/ML VL SUBCUT SCH ×3 (05:53→21:51)
[2022-11-22] MEDS: DOPamine 1600MCG/ML D5W 250 ML IV SCH ×2 (05:55→13:43)
[2022-11-22] MEDS: MIDODRINE HCL 10 MG TAB PO SCH ×3 (05:55→17:48)
[2022-11-22] MEDS: ACCU-CHEK COMFORT CURVE STRIP VI SCH ×3 (05:55→17:50)
[2022-11-22] MEDS: InsuLIN REG 1unit/0.01ml Soln (100units/ml) SC SCH ×3 (06:00→18:00)
[2022-11-22 06:15] LABS: Eosinophils # (auto) 0 10 ^3/uL (0-0.8); Mean Corpuscular Volume 107.3 fL (80.0-100.0)
[2022-11-22 06:18] LABS: Basophils # (auto) 0.1 10 ^3/uL (0-0.2); Basophils % (auto) 0.5 % (0.0-2.0); Hematocrit 20.5 % (36.0-46.0); Lymphocytes # (auto) 0.4 10 ^3/uL (0.4-5.4); Mean Corpuscular Hemoglobin 35.6 pg (28.0-32.0); Mean Corpuscular Hgb Conc. 33.2 g/dL (32.0-36.0); Monocytes # (auto) 0.7 10 ^3/uL (0-1.3); Monocytes % (auto) 3.4 % (0.0-12.0); Neutrophils # (auto) 20.1 10 ^3/uL (1.6-8.6); Neutrophils % (auto) 94.1 % (37.0-80.0); Red Blood Cells 1.91 10^6/uL (4.0-5.20); Red Cell Distribution Width 19.2 % (11.8-14.3); White Blood Cell 21.4 10^3/uL (4.4-10.8)
[2022-11-22 06:20] LABS: Hemoglobin 6.8 g/dL (12.2-16.2)
[2022-11-22] MEDS ORDERED: SODIUM CHL 0.9% 1000 ML BAG XX ONE (07:00)
[2022-11-22 07:51] LABS: Base Excess 4.7 mmol/L (-2.0-2.0)
[2022-11-22] MEDS: ALBUMIN 25% 100 ML IV SCH (10:00)
[2022-11-22] MEDS: MEROPENEM 500MG IVPB 50 ML IV SCH (10:08)
[2022-11-22] MEDS: methylPREDNISolone SOD SUCC 40 MG/ML VL IV SCH (10:08)
[2022-11-22] MEDS: FUROSEMIDE 100 MG/10ML VIAL IV SCH (10:09)
[2022-11-22] MEDS: PANTOPRAZOLE 40 MG/10 ML VIAL INJ IV SCH (10:09)
[2022-11-22] MEDS: THIAMINE 100mg/ml INJ (200mg/2ml VIAL) IV SCH (10:09)
[2022-11-22] MEDS: MUPIROCIN 2% OINT 15gm or 22gm FOR MRSA NARES TOP SCH (10:10)
[2022-11-22] MEDS: LACTULOSE 10g/15ml SOLN 473ML PR SCH ×2 (10:10→21:53)
[2022-11-22] MEDS ORDERED: ALBUMIN 25% 100 ML IV ONE ×2 (10:15)
[2022-11-22] MEDS ORDERED: DOPamine 1600MCG/ML D5W 250 ML IV SCH (10:45)
[2022-11-22] MEDS ORDERED: PHYTONADIONE (VIT K)10 MG/ML 1ML VIAL SUBCUT ONE (12:15)
[2022-11-22] MEDS ORDERED: TPN PER PHARMACY 0 ML IV SCH (12:15)
[2022-11-22] MEDS ORDERED: OXYMETAZOLINE HCL 0.05 % NASAL SPRAY 15ML EACHNOSTRI ONE (12:15)
[2022-11-22] MEDS ORDERED: POTASSIUM CHL 20MEQ/100ML 100 ML IV ONE (13:00)
[2022-11-22] MEDS ORDERED: phytonadione 10 MG in SODIUM CHL 0.9% 50 ML IV ONE ×2 (13:30→17:15)
[2022-11-22] MEDS: SODIUM FERR GLUC 62.5MG/5ML 125 MG in SODIUM CHL 0.9% 100 ML IV SCH (13:41)
[2022-11-22] MEDS: MIDAZOLAM DRIP 50 mg/50mL 50 ML IV SCH (16:00)
[2022-11-22] MEDS ORDERED: VANCOMYCIN 500 MG in D5W 5% 100 ML IV ONE (17:00)
[2022-11-22] MEDS: NOREPINEPHRINE 8 MG/250ML KIT 250 ML IV SCH (19:30)
[2022-11-22] MEDS: fentaNYL Drip 2500mCg/250mlNS 250 ML IV SCH (19:55)
[2022-11-22] MEDS ORDERED: TPN PER PHARMACY IV NR ×6 (20:00)
[2022-11-22] MEDS: MEROPENEM 1GM IVPB 100 ML IV SCH (21:51)
[2022-11-22] MEDS: OXYMETAZOLINE HCL 0.05 % NASAL SPRAY 15ML SCH (21:52)
[2022-11-23] VITALS (106 sets, daily range): BP systolic 110–167; BP diastolic 56–100; PULSE 69–120; RESP 14–30; TEMP 97.3–98.2; O2SAT 90–100
[2022-11-23] MEDS: ACCU-CHEK COMFORT CURVE STRIP VI SCH ×4 (00:05→17:13)
[2022-11-23] MEDS: InsuLIN REG 1unit/0.01ml Soln (100units/ml) SC SCH ×4 (00:08→17:14)
[2022-11-23] MEDS: ALBUTEROL SULF 2.5 MG/0.5ML(0.5%) NEB SOLN NEB SCH ×4 (00:31→19:01)
[2022-11-23] MEDS: IPRATROPIUM BROM 0.5 MG/2.5ML INH SOL NEB SCH ×4 (00:31→19:01)
[2022-11-23 04:10] LABS: Hemoglobin 7.8 g/dL (12.2-16.2)
[2022-11-23 04:13] LABS: Hematocrit 22.7 % (36.0-46.0); Mean Corpuscular Hemoglobin 36.4 pg (28.0-32.0); Mean Corpuscular Hgb Conc. 34.5 g/dL (32.0-36.0); Mean Corpuscular Volume 105.5 fL (80.0-100.0); Red Blood Cells 2.15 10^6/uL (4.0-5.20); White Blood Cell 23.6 10^3/uL (4.4-10.8)
[2022-11-23 04:19] LABS: Red Cell Distribution Width 22.6 % (11.8-14.3)
[2022-11-23 04:21] LABS: Band Neutrophils % (manual) 0; Basophils % (manual) 0 (0.0-2.0); Blast Cells 0; Eosinophils % (manual) 0 (0-7); Metamyelocytes % 0; Myelocytes % 0; Promyelocytes % 0; Reactive Lymphocytes 0
[2022-11-23 04:29] LABS: Alanine Aminotransferase 62 U/L (7-40); Albumin 3.2 g/dL (3.2-4.8); Alkaline Phosphatase 145 U/L (46-116); Aspartate Aminotransferase 182 U/L (13-40); Blood Urea Nitrogen 23 mg/dL (9-23); Calcium 8.4 mg/dL (8.5-10.1); Chloride 107 mmol/L (98-107); Glucose 237 mg/dL (74-106); Magnesium 1.7 mg/dL (1.6-2.6); Potassium 3.3 mmol/L (3.5-5.1); Sodium 144 mmol/L (136-145)
[2022-11-23 04:30] LABS: Bilirubin, Total 13.7 mg/dL (0.2-1.0); Total Protein 5.8 g/dL (5.7-8.2)
[2022-11-23 04:31] LABS: BUN/Creatinine Ratio 13.5 (10.0-20.0)
[2022-11-23 04:56] LABS: Triglycerides 102 mg/dL (< 150)
[2022-11-23] MEDS: rifAXIMin 550 MG TAB GT SCH ×3 (06:00→21:35)
[2022-11-23] MEDS: MIDODRINE HCL 10 MG TAB PO SCH ×3 (06:00→17:10)
[2022-11-23] MEDS: OCTREOTIDE ACETATE 100 MCG/ML VL SUBCUT SCH ×3 (06:13→21:35)
[2022-11-23 07:44] LABS: Base Excess 4.7 mmol/L (-2.0-2.0)
[2022-11-23 07:49] LABS: Hypochromia Moderate; Lymphocytes % (manual) 4 (10.0-50.0); Macrocytosis Moderate; Monocytes % (manual) 2 (0-12); Platelet Estimate Decreased; Target Cell FEW
[2022-11-23] MEDS: LACTULOSE 10g/15ml SOLN 473ML PR SCH ×2 (08:21→21:36)
[2022-11-23] MEDS: OXYMETAZOLINE HCL 0.05 % NASAL SPRAY 15ML SCH ×2 (08:21→21:35)
[2022-11-23] MEDS: ALBUMIN 25% 100 ML IV SCH (08:21)
[2022-11-23] MEDS: FUROSEMIDE 100 MG/10ML VIAL IV SCH (08:22)
[2022-11-23] MEDS: THIAMINE 100mg/ml INJ (200mg/2ml VIAL) IV SCH (08:22)
[2022-11-23] MEDS: methylPREDNISolone SOD SUCC 40 MG/ML VL IV SCH (08:22)
[2022-11-23] MEDS: MEROPENEM 1GM IVPB 100 ML IV SCH ×3 (08:23→23:17)
[2022-11-23] MEDS: PANTOPRAZOLE 40 MG/10 ML VIAL INJ IV SCH (08:23)
[2022-11-23] MEDS ORDERED: POTASSIUM PHOSPHATE 44 MEQ in D5W 5% 250 ML IV ONE (09:30)
[2022-11-23] MEDS ORDERED: VANCOMYCIN 500 MG in D5W 5% 100 ML IV ONE (10:00)
[2022-11-23] MEDS ORDERED: POTASSIUM CHL 20MEQ/100ML 100 ML IV ONE (10:45)
[2022-11-23] MEDS: MAGNESIUM SULFATE 1GM/100ML 100 ML IV SCH ×2 (10:49→11:00)
[2022-11-23] MEDS: fentaNYL Drip 2500mCg/250mlNS 250 ML IV SCH (11:30)
[2022-11-23] MEDS: SODIUM FERR GLUC 62.5MG/5ML 125 MG in SODIUM CHL 0.9% 100 ML IV SCH (12:00)
[2022-11-23] MEDS: DOPamine 1600MCG/ML D5W 250 ML IV SCH (13:15)
[2022-11-23] MEDS ORDERED: POTASSIUM PHOSP 22MEQ(15MMOLE) in NS 100 ML IV ONE (15:00)
[2022-11-23] MEDS: MIDAZOLAM DRIP 50 mg/50mL 50 ML IV SCH (16:00)
[2022-11-23] MEDS ORDERED: phytonadione 10 MG in SODIUM CHL 0.9% 50 ML IV ONE (17:15)
[2022-11-23] MEDS: NOREPINEPHRINE 8 MG/250ML KIT 250 ML IV SCH (19:30)
[2022-11-23] MEDS ORDERED: TPN PER PHARMACY IV NR ×10 (20:00)
[2022-11-24] VITALS (106 sets, daily range): BP systolic 98–169; BP diastolic 48–103; PULSE 77–105; RESP 14–29; TEMP 94.8–98.4; O2SAT 87–100
[2022-11-24] MEDS: ACCU-CHEK COMFORT CURVE STRIP VI SCH ×4 (00:05→18:13)
[2022-11-24] MEDS: InsuLIN REG 1unit/0.01ml Soln (100units/ml) SC SCH ×4 (00:09→18:21)
[2022-11-24] MEDS: ALBUTEROL SULF 2.5 MG/0.5ML(0.5%) NEB SOLN NEB SCH ×4 (00:22→18:40)
[2022-11-24] MEDS: IPRATROPIUM BROM 0.5 MG/2.5ML INH SOL NEB SCH ×4 (00:22→18:40)
[2022-11-24 04:37] LABS: Hemoglobin 8.4 g/dL (12.2-16.2)
[2022-11-24 04:39] LABS: Hematocrit 24.2 % (36.0-46.0); Mean Corpuscular Hemoglobin 37.4 pg (28.0-32.0); Mean Corpuscular Hgb Conc. 34.5 g/dL (32.0-36.0); Mean Corpuscular Volume 108.2 fL (80.0-100.0); Red Blood Cells 2.23 10^6/uL (4.0-5.20)
[2022-11-24 05:06] LABS: Alanine Aminotransferase 56 U/L (7-40); Albumin 3.5 g/dL (3.2-4.8); Alkaline Phosphatase 151 U/L (46-116); Anion Gap 5.9 (5-15); Aspartate Aminotransferase 137 U/L (13-40); Bilirubin, Total 12.5 mg/dL (0.2-1.0); Calcium 9.2 mg/dL (8.7-10.4); Carbon Dioxide 31.1 mmol/L (20-30); Chloride 104 mmol/L (98-107); Glucose 246 mg/dL (74-106); Phosphorus 2.2 mg/dL (2.4-5.1); Potassium 3.6 mmol/L (3.5-5.1); Sodium 141 mmol/L (136-145); Total Protein 6.3 g/dL (5.7-8.2)
[2022-11-24 05:09] LABS: Red Cell Distribution Width 24.6 % (11.8-14.3); White Blood Cell 34.2 10^3/uL (4.4-10.8)
[2022-11-24 05:10] LABS: Band Neutrophils % (manual) 0; Basophils % (manual) 0 (0.0-2.0); Blast Cells 0; Eosinophils % (manual) 0 (0-7); Metamyelocytes % 0; Myelocytes % 0; Promyelocytes % 0; Reactive Lymphocytes 0
[2022-11-24 05:55] LABS: Blood Urea Nitrogen 36 mg/dL (9-23)
[2022-11-24] MEDS: MIDODRINE HCL 10 MG TAB PO SCH ×3 (06:00→18:00)
[2022-11-24] MEDS: rifAXIMin 550 MG TAB GT SCH ×3 (06:00→21:46)
[2022-11-24] MEDS: OCTREOTIDE ACETATE 100 MCG/ML VL SUBCUT SCH ×3 (06:05→21:48)
[2022-11-24 06:10] LABS: BUN/Creatinine Ratio 17.7 (10.0-20.0)
[2022-11-24] MEDS: fentaNYL Drip 2500mCg/250mlNS 250 ML IV SCH (06:26)
[2022-11-24 06:27] LABS: Base Excess 4.3 mmol/L (-2.0-2.0)
[2022-11-24 08:48] LABS: Lymphocytes % (manual) 1 (10.0-50.0); Monocytes % (manual) 2 (0-12)
[2022-11-24 08:49] LABS: Platelet Estimate Decreased
[2022-11-24] MEDS: THIAMINE 100mg/ml INJ (200mg/2ml VIAL) IV SCH (09:27)
[2022-11-24] MEDS: FUROSEMIDE 100 MG/10ML VIAL IV SCH (09:29)
[2022-11-24] MEDS: PANTOPRAZOLE 40 MG/10 ML VIAL INJ IV SCH (09:30)
[2022-11-24] MEDS: OXYMETAZOLINE HCL 0.05 % NASAL SPRAY 15ML SCH ×2 (09:31→21:46)
[2022-11-24] MEDS: methylPREDNISolone SOD SUCC 40 MG/ML VL IV SCH (09:31)
[2022-11-24] MEDS: LACTULOSE 10g/15ml SOLN 473ML PR SCH ×2 (09:31→21:47)
[2022-11-24] MEDS: ALBUMIN 25% 100 ML IV SCH (10:00)
[2022-11-24 10:24] LABS: COVID19 ANTIGEN SOFIA FIA NEGATIVE (NEGATIVE)
[2022-11-24] MEDS: MEROPENEM 1GM IVPB 100 ML IV SCH ×2 (10:30→23:02)
[2022-11-24] MEDS ORDERED: POTASSIUM PHOSP 22MEQ(15MMOLE) in NS 100 ML IV ONE (12:00)
[2022-11-24] MEDS: SODIUM FERR GLUC 62.5MG/5ML 125 MG in SODIUM CHL 0.9% 100 ML IV SCH (12:16)
[2022-11-24] MEDS: DOPamine 1600MCG/ML D5W 250 ML IV SCH (13:15)
[2022-11-24] MEDS: MIDAZOLAM DRIP 50 mg/50mL 50 ML IV SCH (16:00)
[2022-11-24] MEDS ORDERED: CEFTAROLINE IV SCH (16:06)
[2022-11-24] MEDS ORDERED: SODIUM CHL 0.9% IV SCH (16:06)
[2022-11-24] MEDS ORDERED: LIDOCAINE 1% (LOCAL ANESTH.) PF 5ml SDV ID ONE (16:45)
[2022-11-24] MEDS: SODIUM CHL 0.9% IV SCH (18:13)
[2022-11-24] MEDS: CEFTAROLINE IV SCH (18:13)
[2022-11-24] MEDS: NOREPINEPHRINE 8 MG/250ML KIT 250 ML IV SCH (19:30)
[2022-11-24] MEDS ORDERED: TPN PER PHARMACY IV NR ×7 (20:00)
[2022-11-24] MEDS: SODIUM CHLOR 0.9% PF (SALINE LOCK) 10ML VIAL/SYR IV SCH (21:46)
[2022-11-25] VITALS (108 sets, daily range): BP systolic 97–165; BP diastolic 49–103; PULSE 72–107; RESP 7–20; TEMP 78.4–99.1; O2SAT 92–100
[2022-11-25] MEDS: ACCU-CHEK COMFORT CURVE STRIP VI SCH ×5 (00:03→23:52)
[2022-11-25] MEDS: InsuLIN REG 1unit/0.01ml Soln (100units/ml) SC SCH ×4 (00:05→16:59)
[2022-11-25 04:49] LABS: Hemoglobin 8.1 g/dL (12.2-16.2)
[2022-11-25 04:52] LABS: Alanine Aminotransferase 60 U/L (7-40); Albumin 2.9 g/dL (3.2-4.8); Alkaline Phosphatase 143 U/L (46-116); Anion Gap 4.7 (5-15); Aspartate Aminotransferase 130 U/L (13-40); Blood Urea Nitrogen 43 mg/dL (9-23); Calcium 9.1 mg/dL (8.7-10.4); Carbon Dioxide 31.3 mmol/L (20-30); Chloride 107 mmol/L (98-107); Glucose 223 mg/dL (74-106); Magnesium 1.9 mg/dL (1.6-2.6); Mean Corpuscular Hemoglobin 34.5 pg (28.0-32.0); Mean Corpuscular Hgb Conc. 32.4 g/dL (32.0-36.0); Mean Corpuscular Volume 106.4 fL (80.0-100.0); Potassium 3.8 mmol/L (3.5-5.1); Red Blood Cells 2.35 10^6/uL (4.0-5.20); Sodium 143 mmol/L (136-145)
[2022-11-25 04:53] LABS: Bilirubin, Total 10.7 mg/dL (0.2-1.0); Phosphorus 3.1 mg/dL (2.4-5.1); Total Protein 5.7 g/dL (5.7-8.2)
[2022-11-25] MEDS: MIDODRINE HCL 10 MG TAB PO SCH ×3 (05:47→17:41)
[2022-11-25] MEDS: rifAXIMin 550 MG TAB GT SCH ×3 (05:47→21:45)
[2022-11-25] MEDS: OCTREOTIDE ACETATE 100 MCG/ML VL SUBCUT SCH ×3 (05:48→21:45)
[2022-11-25 05:50] LABS: BUN/Creatinine Ratio 20.6 (10.0-20.0)
[2022-11-25] MEDS: SODIUM CHL 0.9% IV SCH ×2 (05:53→17:42)
[2022-11-25] MEDS: CEFTAROLINE IV SCH ×2 (05:53→17:42)
[2022-11-25 06:02] LABS: Red Cell Distribution Width 27.1 % (11.8-14.3); White Blood Cell 30.4 10^3/uL (4.4-10.8)
[2022-11-25 06:03] LABS: Basophils % (manual) 0 (0.0-2.0); Blast Cells 0; Eosinophils % (manual) 0 (0-7); Metamyelocytes % 0; Myelocytes % 0; Promyelocytes % 0; Reactive Lymphocytes 0
[2022-11-25] MEDS: IPRATROPIUM BROM 0.5 MG/2.5ML INH SOL NEB SCH ×4 (06:23→18:50)
[2022-11-25] MEDS: ALBUTEROL SULF 2.5 MG/0.5ML(0.5%) NEB SOLN NEB SCH ×4 (06:23→18:50)
[2022-11-25 07:40] LABS: Base Excess 5.4 mmol/L (-2.0-2.0)
[2022-11-25] MEDS: ALBUMIN 25% 100 ML IV SCH (10:00)
[2022-11-25] MEDS: MEROPENEM 1GM IVPB 100 ML IV SCH ×2 (10:23→22:51)
[2022-11-25] MEDS: PANTOPRAZOLE 40 MG/10 ML VIAL INJ IV SCH (10:24)
[2022-11-25] MEDS: FUROSEMIDE 100 MG/10ML VIAL IV SCH (10:24)
[2022-11-25] MEDS: THIAMINE 100mg/ml INJ (200mg/2ml VIAL) IV SCH (10:25)
[2022-11-25] MEDS: SODIUM CHLOR 0.9% PF (SALINE LOCK) 10ML VIAL/SYR IV SCH ×2 (10:25→21:45)
[2022-11-25] MEDS: methylPREDNISolone SOD SUCC 40 MG/ML VL IV SCH (10:26)
[2022-11-25] MEDS: OXYMETAZOLINE HCL 0.05 % NASAL SPRAY 15ML SCH (10:26)
[2022-11-25] MEDS: LACTULOSE 10g/15ml SOLN 473ML PR SCH ×2 (10:27→21:47)
[2022-11-25 11:22] LABS: Band Neutrophils % (manual) 7; Lymphocytes % (manual) 4 (10.0-50.0); Macrocytosis Moderate; Monocytes % (manual) 4 (0-12); Platelet Estimate Decreased
[2022-11-25 11:23] LABS: Anisocytosis Moderate
[2022-11-25] MEDS: fentaNYL Drip 2500mCg/250mlNS 250 ML IV SCH (11:30)
[2022-11-25] MEDS: SODIUM FERR GLUC 62.5MG/5ML 125 MG in SODIUM CHL 0.9% 100 ML IV SCH (11:52)
[2022-11-25] MEDS: DOPamine 1600MCG/ML D5W 250 ML IV SCH (13:15)
[2022-11-25] MEDS: MIDAZOLAM DRIP 50 mg/50mL 50 ML IV SCH (13:23)
[2022-11-25] MEDS: NOREPINEPHRINE 8 MG/250ML KIT 250 ML IV SCH (19:23)
[2022-11-25] MEDS ORDERED: TPN PER PHARMACY IV NR ×6 (20:00)
[2022-11-26] VITALS (84 sets, daily range): BP systolic 109–184; BP diastolic 58–109; PULSE 80–107; RESP 6–21; TEMP 98.1–99; O2SAT 91–96
[2022-11-26] MEDS: ALBUTEROL SULF 2.5 MG/0.5ML(0.5%) NEB SOLN NEB SCH ×4 (00:06→18:43)
[2022-11-26] MEDS: IPRATROPIUM BROM 0.5 MG/2.5ML INH SOL NEB SCH ×4 (00:06→18:43)
[2022-11-26] MEDS: InsuLIN REG 1unit/0.01ml Soln (100units/ml) SC SCH ×5 (00:23→23:47)
[2022-11-26 04:50] LABS: Hematocrit 26.1 % (36.0-46.0); Hemoglobin 8.5 g/dL (12.2-16.2); Mean Corpuscular Hgb Conc. 32.6 g/dL (32.0-36.0); Red Blood Cells 2.41 10^6/uL (4.0-5.20)
[2022-11-26 04:52] LABS: Mean Corpuscular Hemoglobin 35.3 pg (28.0-32.0); Mean Corpuscular Volume 108.2 fL (80.0-100.0); White Blood Cell 27.1 10^3/uL (4.4-10.8)
[2022-11-26 04:59] LABS: Red Cell Distribution Width 27.4 % (11.8-14.3)
[2022-11-26 05:00] LABS: Basophils % (manual) 0 (0.0-2.0); Blast Cells 0; Eosinophils % (manual) 0 (0-7); Metamyelocytes % 0; Promyelocytes % 0; Reactive Lymphocytes 0
[2022-11-26 05:03] LABS: Alanine Aminotransferase 85 U/L (7-40); Alkaline Phosphatase 166 U/L (46-116); Anion Gap 8.8 (5-15); Aspartate Aminotransferase 178 U/L (13-40); Calcium 9.1 mg/dL (8.7-10.4); Carbon Dioxide 30.2 mmol/L (20-30); Chloride 104 mmol/L (98-107); Glucose 335 mg/dL (74-106); Magnesium 1.8 mg/dL (1.6-2.6); Phosphorus 4.1 mg/dL (2.4-5.1); Sodium 143 mmol/L (136-145); Total Protein 5.8 g/dL (5.7-8.2)
[2022-11-26 05:12] LABS: Blood Urea Nitrogen 55 mg/dL (9-23)
[2022-11-26 05:23] LABS: BUN/Creatinine Ratio 22.3 (10.0-20.0)
[2022-11-26] MEDS: ACCU-CHEK COMFORT CURVE STRIP VI SCH ×4 (05:40→23:46)
[2022-11-26] MEDS: rifAXIMin 550 MG TAB GT SCH ×3 (05:43→21:42)
[2022-11-26] MEDS: MIDODRINE HCL 10 MG TAB PO SCH (05:43)
[2022-11-26] MEDS: CEFTAROLINE IV SCH ×2 (05:47→17:37)
[2022-11-26] MEDS: OCTREOTIDE ACETATE 100 MCG/ML VL SUBCUT SCH ×3 (05:47→21:43)
[2022-11-26] MEDS: SODIUM CHL 0.9% IV SCH ×2 (05:47→17:37)
[2022-11-26 07:47] LABS: Anisocytosis Moderate; Band Neutrophils % (manual) 9; Lymphocytes % (manual) 2 (10.0-50.0); Macrocytosis Moderate; Monocytes % (manual) 1 (0-12); Myelocytes % 1; Platelet Estimate Decreased
[2022-11-26 07:48] LABS: Pappenheimer Bodies FEW
[2022-11-26 07:49] LABS: Stomatocytes Moderate
[2022-11-26] MEDS: PANTOPRAZOLE 40 MG/10 ML VIAL INJ IV SCH (08:11)
[2022-11-26] MEDS: THIAMINE 100mg/ml INJ (200mg/2ml VIAL) IV SCH (08:11)
[2022-11-26] MEDS: methylPREDNISolone SOD SUCC 40 MG/ML VL IV SCH (08:11)
[2022-11-26] MEDS: SODIUM CHLOR 0.9% PF (SALINE LOCK) 10ML VIAL/SYR IV SCH ×2 (08:12→21:42)
[2022-11-26] MEDS: ALBUMIN 25% 100 ML IV SCH (08:12)
[2022-11-26] MEDS: LACTULOSE 10g/15ml SOLN 473ML PR SCH ×2 (08:35→21:43)
[2022-11-26 08:44] LABS: Base Excess 3.2 mmol/L (-2.0-2.0)
[2022-11-26] MEDS ORDERED: FUROSEMIDE 40 MG/4 ML VIAL IV SCH (09:00)
[2022-11-26] MEDS ORDERED: SODIUM CHLORIDE 0.9% 1,000 ML IV ONE (10:45)
[2022-11-26] MEDS: MEROPENEM 1GM IVPB 100 ML IV SCH ×2 (11:39→22:54)
[2022-11-26] MEDS ORDERED: TPN PER PHARMACY IV NR ×6 (20:00)
[2022-11-26] MEDS: hydrALAZINE HCL 20 MG/ML VL IV PRN (22:17)
[2022-11-26] MEDS: MIDAZOLAM DRIP 50 mg/50mL 50 ML IV SCH (22:19)
[2022-11-27] VITALS (100 sets, daily range): BP systolic 115–184; BP diastolic 61–103; PULSE 88–118; RESP 13–26; TEMP 98.2–98.7; O2SAT 92–96
[2022-11-27] MEDS: IPRATROPIUM BROM 0.5 MG/2.5ML INH SOL NEB SCH ×4 (00:14→18:24)
[2022-11-27] MEDS: ALBUTEROL SULF 2.5 MG/0.5ML(0.5%) NEB SOLN NEB SCH ×4 (00:15→18:24)
[2022-11-27] MEDS: hydrALAZINE HCL 20 MG/ML VL IV PRN ×3 (02:47→22:01)
[2022-11-27 04:27] LABS: Hemoglobin 8.2 g/dL (12.2-16.2); Mean Corpuscular Hgb Conc. 30.8 g/dL (32.0-36.0)
[2022-11-27 04:30] LABS: Hematocrit 26.8 % (36.0-46.0); Mean Corpuscular Hemoglobin 33.7 pg (28.0-32.0); Mean Corpuscular Volume 109.5 fL (80.0-100.0); Red Blood Cells 2.44 10^6/uL (4.0-5.20); White Blood Cell 26.6 10^3/uL (4.4-10.8)
[2022-11-27 04:42] LABS: Red Cell Distribution Width 28.6 % (11.8-14.3)
[2022-11-27 04:43] LABS: Basophils % (manual) 0 (0.0-2.0); Blast Cells 0; Eosinophils % (manual) 0 (0-7); Metamyelocytes % 0; Myelocytes % 0; Promyelocytes % 0; Reactive Lymphocytes 0
[2022-11-27 04:46] LABS: INR 1.57 (0.9-1.15)
[2022-11-27 04:57] LABS: Alanine Aminotransferase 109 U/L (7-40); Alkaline Phosphatase 175 U/L (46-116); Anion Gap 12.6 (5-15); Calcium 8.4 mg/dL (8.7-10.4); Carbon Dioxide 23.4 mmol/L (20-30); Chloride 111 mmol/L (98-107); Sodium 147 mmol/L (136-145)
[2022-11-27 04:58] LABS: Blood Urea Nitrogen 56 mg/dL (9-23); Glucose 184 mg/dL (74-106); Magnesium 1.6 mg/dL (1.6-2.6)
[2022-11-27 04:59] LABS: Albumin 3.1 g/dL (3.2-4.8); Aspartate Aminotransferase 214 U/L (13-40)
[2022-11-27 05:00] LABS: Bilirubin, Total 11.6 mg/dL (0.2-1.0); Phosphorus 3.2 mg/dL (2.4-5.1); Total Protein 5.8 g/dL (5.7-8.2)
[2022-11-27 05:04] LABS: BUN/Creatinine Ratio 24.3 (10.0-20.0)
[2022-11-27] MEDS: ACCU-CHEK COMFORT CURVE STRIP VI SCH ×4 (05:42→23:32)
[2022-11-27] MEDS: InsuLIN REG 1unit/0.01ml Soln (100units/ml) SC SCH ×4 (05:42→23:32)
[2022-11-27] MEDS: OCTREOTIDE ACETATE 100 MCG/ML VL SUBCUT SCH ×3 (05:43→21:57)
[2022-11-27] MEDS: CEFTAROLINE IV SCH ×2 (05:43→18:00)
[2022-11-27] MEDS: SODIUM CHL 0.9% IV SCH ×2 (05:43→18:00)
[2022-11-27] MEDS: rifAXIMin 550 MG TAB GT SCH ×3 (05:44→21:58)
[2022-11-27 08:04] LABS: Band Neutrophils % (manual) 10; Lymphocytes % (manual) 2 (10.0-50.0); Monocytes % (manual) 4 (0-12); Platelet Estimate Decreased
[2022-11-27 08:05] LABS: Anisocytosis Moderate; Macrocytosis Moderate; Stomatocytes Moderate
[2022-11-27 09:08] LABS: Base Excess 3.2 mmol/L (-2.0-2.0)
[2022-11-27] MEDS: MAGNESIUM SULFATE 1GM/100ML 100 ML IV SCH ×2 (10:14→11:34)
[2022-11-27] MEDS: ALBUMIN 25% 100 ML IV SCH (10:15)
[2022-11-27] MEDS: PANTOPRAZOLE 40 MG/10 ML VIAL INJ IV SCH (10:15)
[2022-11-27] MEDS: THIAMINE 100mg/ml INJ (200mg/2ml VIAL) IV SCH (10:15)
[2022-11-27] MEDS: methylPREDNISolone SOD SUCC 40 MG/ML VL IV SCH (10:15)
[2022-11-27] MEDS: SODIUM CHLOR 0.9% PF (SALINE LOCK) 10ML VIAL/SYR IV SCH ×2 (10:16→21:58)
[2022-11-27] MEDS: LACTULOSE 10g/15ml SOLN 473ML PR SCH ×2 (10:17→21:58)
[2022-11-27] MEDS: MEROPENEM 1GM IVPB 100 ML IV SCH ×2 (10:57→23:27)
[2022-11-27] MEDS ORDERED: POTASSIUM PHOSPHATE 22 MEQ in SODIUM CHL 0.9% 100 ML IV ONE (14:00)
[2022-11-27] MEDS: MIDAZOLAM DRIP 50 mg/50mL 50 ML IV SCH (16:00)
[2022-11-27] MEDS: FUROSEMIDE 40 MG/4 ML VIAL IV SCH (18:35)
[2022-11-27] MEDS ORDERED: CALCIUM GLUC IV NR ×7 (20:00)
[2022-11-27] MEDS ORDERED: FAT EMULSION IV NR ×7 (20:00)
[2022-11-27] MEDS ORDERED: POTASSIUM ACETATE IV NR ×7 (20:00)
[2022-11-27] MEDS ORDERED: [UNRECOGNIZED DRUG - OTHER] IV NR ×7 (20:00)
[2022-11-28] VITALS (48 sets, daily range): BP systolic 123–181; BP diastolic 61–94; PULSE 74–99; RESP 11–23; TEMP 97.7–98.5; O2SAT 90–98
[2022-11-28] MEDS: IPRATROPIUM BROM 0.5 MG/2.5ML INH SOL NEB SCH ×4 (00:16→18:29)
[2022-11-28] MEDS: ALBUTEROL SULF 2.5 MG/0.5ML(0.5%) NEB SOLN NEB SCH ×4 (00:16→18:29)
[2022-11-28 04:39] LABS: Hemoglobin 9.2 g/dL (12.2-16.2)
[2022-11-28 04:44] LABS: Mean Corpuscular Hemoglobin 34.3 pg (28.0-32.0); Mean Corpuscular Hgb Conc. 31.8 g/dL (32.0-36.0); Red Blood Cells 2.68 10^6/uL (4.0-5.20); White Blood Cell 22.1 10^3/uL (4.4-10.8)
[2022-11-28 04:47] LABS: Red Cell Distribution Width 29.7 % (11.8-14.3)
[2022-11-28 04:49] LABS: Band Neutrophils % (manual) 0; Basophils % (manual) 0 (0.0-2.0); Blast Cells 0; Eosinophils % (manual) 0 (0-7); Metamyelocytes % 0; Promyelocytes % 0; Reactive Lymphocytes 0
[2022-11-28 04:56] LABS: Alanine Aminotransferase 128 U/L (7-40); Alkaline Phosphatase 201 U/L (46-116); Anion Gap 12.5 (5-15); Blood Urea Nitrogen 65 mg/dL (9-23); Calcium 9.6 mg/dL (8.7-10.4); Carbon Dioxide 25.5 mmol/L (20-30); Chloride 107 mmol/L (98-107); Glucose 199 mg/dL (74-106); Potassium 3.6 mmol/L (3.5-5.1); Sodium 145 mmol/L (136-145)
[2022-11-28 04:57] LABS: Albumin 3.6 g/dL (3.2-4.8); Aspartate Aminotransferase 228 U/L (13-40); Magnesium 2.1 mg/dL (1.6-2.6); Phosphorus 3.7 mg/dL (2.4-5.1)
[2022-11-28 04:58] LABS: Bilirubin, Total 13.6 mg/dL (0.2-1.0); Total Protein 6.6 g/dL (5.7-8.2)
[2022-11-28 05:07] LABS: BUN/Creatinine Ratio 25.8 (10.0-20.0)
[2022-11-28] MEDS: ACCU-CHEK COMFORT CURVE STRIP VI SCH ×5 (05:33→23:57)
[2022-11-28] MEDS: InsuLIN REG 1unit/0.01ml Soln (100units/ml) SC SCH ×4 (05:34→23:57)
[2022-11-28] MEDS: FUROSEMIDE 40 MG/4 ML VIAL IV SCH (05:35)
[2022-11-28] MEDS: CEFTAROLINE IV SCH ×2 (05:35→18:06)
[2022-11-28] MEDS: SODIUM CHL 0.9% IV SCH ×2 (05:35→18:06)
[2022-11-28] MEDS: rifAXIMin 550 MG TAB GT SCH ×3 (05:36→21:30)
[2022-11-28] MEDS: OCTREOTIDE ACETATE 100 MCG/ML VL SUBCUT SCH ×3 (05:36→21:30)
[2022-11-28] MEDS: LACTULOSE 10g/15ml SOLN 473ML PR SCH ×2 (08:48→21:30)
[2022-11-28] MEDS: PANTOPRAZOLE 40 MG/10 ML VIAL INJ IV SCH (08:48)
[2022-11-28] MEDS: THIAMINE 100mg/ml INJ (200mg/2ml VIAL) IV SCH (08:48)
[2022-11-28] MEDS: SODIUM CHLOR 0.9% PF (SALINE LOCK) 10ML VIAL/SYR IV SCH ×2 (08:48→21:30)
[2022-11-28] MEDS: methylPREDNISolone SOD SUCC 40 MG/ML VL IV SCH (08:48)
[2022-11-28 08:49] LABS: Lymphocytes % (manual) 5 (10.0-50.0); Monocytes % (manual) 5 (0-12); Myelocytes % 1
[2022-11-28 08:50] LABS: Platelet Estimate Decreased
[2022-11-28] MEDS: MEROPENEM 1GM IVPB 100 ML IV SCH ×2 (12:06→23:13)
[2022-11-28 12:09] LABS: Base Excess 3.9 mmol/L (-2.0-2.0)
[2022-11-28] MEDS: MIDAZOLAM DRIP 50 mg/50mL 50 ML IV SCH (15:43)
[2022-11-28] MEDS ORDERED: VIT K IV NR ×6 (20:00)
[2022-11-28] MEDS ORDERED: MULTIPLE VIT IV NR ×6 (20:00)
[2022-11-28] MEDS ORDERED: FAT EMULSION IV NR ×6 (20:00)
[2022-11-28] MEDS ORDERED: POTASSIUM ACETATE IV NR ×6 (20:00)
[2022-11-28] MEDS ORDERED: [UNRECOGNIZED DRUG - OTHER] IV NR ×6 (20:00)
[2022-11-29] VITALS (39 sets, daily range): BP systolic 98–156; BP diastolic 43–76; PULSE 64–89; RESP 9–18; TEMP 98.4–99; O2SAT 86–99
[2022-11-29] MEDS: ALBUTEROL SULF 2.5 MG/0.5ML(0.5%) NEB SOLN NEB SCH ×5 (00:16→23:25)
[2022-11-29] MEDS: IPRATROPIUM BROM 0.5 MG/2.5ML INH SOL NEB SCH ×5 (00:16→23:25)
[2022-11-29 04:39] LABS: Basophils # (auto) 0 10 ^3/uL (0-0.2); Eosinophils # (auto) 0 10 ^3/uL (0-0.8); Hemoglobin 9.2 g/dL (12.2-16.2); Lymphocytes # (auto) 0.3 10 ^3/uL (0.4-5.4); Monocytes # (auto) 0.8 10 ^3/uL (0-1.3); Neutrophils # (auto) 15.8 10 ^3/uL (1.6-8.6)
[2022-11-29 04:41] LABS: Basophils % (auto) 0.2 % (0.0-2.0); Lymphocytes % (auto) 1.6 % (10.0-50.0); Mean Corpuscular Hemoglobin 39.9 pg (28.0-32.0); Mean Corpuscular Hgb Conc. 35.4 g/dL (32.0-36.0); Mean Corpuscular Volume 112.6 fL (80.0-100.0); Monocytes % (auto) 4.8 % (0.0-12.0); Neutrophils % (auto) 93.4 % (37.0-80.0); Nucleated Red Blood Cells % 0.3 %; Red Blood Cells 2.31 10^6/uL (4.0-5.20)
[2022-11-29 04:45] LABS: Red Cell Distribution Width 28.8 % (11.8-14.3)
[2022-11-29 04:47] LABS: Alanine Aminotransferase 168 U/L (7-40); Albumin 3.4 g/dL (3.2-4.8); Alkaline Phosphatase 220 U/L (46-116); Anion Gap 7.6 (5-15); Aspartate Aminotransferase 278 U/L (13-40); Bilirubin, Total 13.5 mg/dL (0.2-1.0); Calcium 9.6 mg/dL (8.7-10.4); Carbon Dioxide 29.4 mmol/L (20-30); Chloride 108 mmol/L (98-107); Glucose 149 mg/dL (74-106); Magnesium 1.9 mg/dL (1.6-2.6); Phosphorus 4.1 mg/dL (2.4-5.1); Potassium 3.5 mmol/L (3.5-5.1); Sodium 145 mmol/L (136-145); Total Protein 6.5 g/dL (5.7-8.2)
[2022-11-29 04:49] LABS: BUN/Creatinine Ratio 29.5 (10.0-20.0)
[2022-11-29 04:52] LABS: Blood Urea Nitrogen 76 mg/dL (9-23)
[2022-11-29] MEDS: InsuLIN REG 1unit/0.01ml Soln (100units/ml) SC SCH ×3 (05:30→21:45)
[2022-11-29] MEDS: rifAXIMin 550 MG TAB GT SCH ×3 (05:30→21:38)
[2022-11-29] MEDS: CEFTAROLINE IV SCH ×2 (05:30→18:31)
[2022-11-29] MEDS: ACCU-CHEK COMFORT CURVE STRIP VI SCH ×3 (05:30→21:40)
[2022-11-29] MEDS: SODIUM CHL 0.9% IV SCH ×2 (05:30→18:31)
[2022-11-29] MEDS: OCTREOTIDE ACETATE 100 MCG/ML VL SUBCUT SCH ×3 (05:30→21:39)
[2022-11-29 09:21] LABS: Platelet Estimate Decreased
[2022-11-29 09:22] LABS: Anisocytosis Moderate; Macrocytosis Marked
[2022-11-29] MEDS: SODIUM CHLOR 0.9% PF (SALINE LOCK) 10ML VIAL/SYR IV SCH ×2 (11:12→21:38)
[2022-11-29] MEDS: MEROPENEM 1GM IVPB 100 ML IV SCH ×2 (11:12→23:00)
[2022-11-29] MEDS: FUROSEMIDE 40 MG/4 ML VIAL IV SCH (11:13)
[2022-11-29] MEDS: PANTOPRAZOLE 40 MG/10 ML VIAL INJ IV SCH (11:13)
[2022-11-29] MEDS: THIAMINE 100mg/ml INJ (200mg/2ml VIAL) IV SCH (11:13)
[2022-11-29] MEDS: methylPREDNISolone SOD SUCC 40 MG/ML VL IV SCH (11:14)
[2022-11-29] MEDS ORDERED: FUROSEMIDE 40 MG/4 ML VIAL IV ONE (13:30)
[2022-11-29] MEDS: MIDAZOLAM DRIP 50 mg/50mL 50 ML IV SCH (16:00)
[2022-11-29] MEDS ORDERED: DEXTROSE (50%) 50ML SYRG IV PRN (18:30)
[2022-11-29] MEDS ORDERED: TPN PER PHARMACY IV NR ×6 (20:00)
[2022-11-29] MEDS: LACTULOSE 20Gm/30ML SOLN PO SCH (21:40)
[2022-11-30] VITALS (32 sets, daily range): BP systolic 93–123; BP diastolic 46–78; PULSE 68–90; RESP 9–21; TEMP 97.9–98.3; O2SAT 87–100
[2022-11-30 04:28] LABS: Alanine Aminotransferase 200 U/L (7-40); Albumin 3.3 g/dL (3.2-4.8); Alkaline Phosphatase 229 U/L (46-116); Aspartate Aminotransferase 256 U/L (13-40); Bilirubin, Total 14.1 mg/dL (0.2-1.0); Calcium 9.4 mg/dL (8.7-10.4); Chloride 103 mmol/L (98-107); Glucose 234 mg/dL (74-106); Sodium 141 mmol/L (136-145); Total Protein 6.3 g/dL (5.7-8.2)
[2022-11-30 04:44] LABS: BUN/Creatinine Ratio 33.5 (10.0-20.0)
[2022-11-30 04:50] LABS: Blood Urea Nitrogen 85 mg/dL (9-23)
[2022-11-30 05:09] LABS: Basophils # (auto) 0.1 10 ^3/uL (0-0.2); Eosinophils # (auto) 0 10 ^3/uL (0-0.8); Hemoglobin 9.2 g/dL (12.2-16.2); Lymphocytes # (auto) 0.2 10 ^3/uL (0.4-5.4); Monocytes # (auto) 0.5 10 ^3/uL (0-1.3); Neutrophils % (auto) 94.1 % (37.0-80.0)
[2022-11-30 05:12] LABS: Basophils % (auto) 0.8 % (0.0-2.0); Hematocrit 27.1 % (36.0-46.0); Lymphocytes % (auto) 1.5 % (10.0-50.0); Mean Corpuscular Hemoglobin 36.2 pg (28.0-32.0); Mean Corpuscular Hgb Conc. 33.9 g/dL (32.0-36.0); Mean Corpuscular Volume 106.8 fL (80.0-100.0); Monocytes % (auto) 3.6 % (0.0-12.0); Neutrophils # (auto) 13.2 10 ^3/uL (1.6-8.6); Nucleated Red Blood Cells % 0.1 %; Red Blood Cells 2.54 10^6/uL (4.0-5.20)
[2022-11-30 05:19] LABS: Red Cell Distribution Width 28.8 % (11.8-14.3)
[2022-11-30] MEDS: CEFTAROLINE IV SCH ×2 (05:40→14:47)
[2022-11-30] MEDS: SODIUM CHL 0.9% IV SCH ×2 (05:40→14:47)
[2022-11-30] MEDS: OCTREOTIDE ACETATE 100 MCG/ML VL SUBCUT SCH ×3 (05:40→21:36)
[2022-11-30] MEDS: rifAXIMin 550 MG TAB GT SCH ×3 (05:40→21:35)
[2022-11-30] MEDS: InsuLIN REG 1unit/0.01ml Soln (100units/ml) SC SCH ×4 (07:07→21:41)
[2022-11-30] MEDS: ACCU-CHEK COMFORT CURVE STRIP VI SCH ×4 (07:08→21:36)
[2022-11-30] MEDS: IPRATROPIUM BROM 0.5 MG/2.5ML INH SOL NEB SCH ×3 (07:17→19:10)
[2022-11-30] MEDS: ALBUTEROL SULF 2.5 MG/0.5ML(0.5%) NEB SOLN NEB SCH ×3 (07:17→19:10)
[2022-11-30 07:31] LABS: Anisocytosis Moderate; Macrocytosis Moderate; Target Cell FEW
[2022-11-30 07:32] LABS: Platelet Estimate Decreased
[2022-11-30] MEDS: SODIUM CHLOR 0.9% PF (SALINE LOCK) 10ML VIAL/SYR IV SCH ×2 (09:58→21:41)
[2022-11-30] MEDS: LACTULOSE 20Gm/30ML SOLN PO SCH ×2 (09:58→21:41)
[2022-11-30] MEDS: FUROSEMIDE 40 MG/4 ML VIAL IV SCH (09:59)
[2022-11-30] MEDS: methylPREDNISolone SOD SUCC 40 MG/ML VL IV SCH (09:59)
[2022-11-30] MEDS: PANTOPRAZOLE 40 MG/10 ML VIAL INJ IV SCH (09:59)
[2022-11-30] MEDS: MEROPENEM 1GM IVPB 100 ML IV SCH ×2 (11:29→22:56)
[2022-11-30] MEDS: THIAMINE 100mg/ml INJ (200mg/2ml VIAL) IV SCH (11:59)
[2022-11-30] MEDS ORDERED: SODIUM CHLORIDE 0.9% 1,000 ML IV ONE (17:00)
[2022-12-01] VITALS (15 sets, daily range): BP systolic 111–140; BP diastolic 63–69; PULSE 76–103; RESP 16–18; TEMP 98.3–99.3; O2SAT 90–98
[2022-12-01] MEDS: IPRATROPIUM BROM 0.5 MG/2.5ML INH SOL NEB SCH ×4 (00:29→19:42)
[2022-12-01] MEDS: ALBUTEROL SULF 2.5 MG/0.5ML(0.5%) NEB SOLN NEB SCH ×4 (00:29→19:42)
[2022-12-01] MEDS: CEFTAROLINE IV SCH (02:21)
[2022-12-01] MEDS: SODIUM CHL 0.9% IV SCH (02:21)
[2022-12-01] MEDS: rifAXIMin 550 MG TAB GT SCH ×3 (06:05→21:35)
[2022-12-01] MEDS: ACCU-CHEK COMFORT CURVE STRIP VI SCH ×4 (06:06→22:00)
[2022-12-01] MEDS: OCTREOTIDE ACETATE 100 MCG/ML VL SUBCUT SCH ×3 (06:06→21:36)
[2022-12-01] MEDS: InsuLIN REG 1unit/0.01ml Soln (100units/ml) SC SCH ×4 (06:07→21:37)
[2022-12-01 06:33] LABS: Alanine Aminotransferase 232 U/L (7-40); Albumin 3.3 g/dL (3.2-4.8); Alkaline Phosphatase 272 U/L (46-116); Anion Gap 11 (5-15); Aspartate Aminotransferase 260 U/L (13-40); Blood Urea Nitrogen 79 mg/dL (9-23); Calcium 9.2 mg/dL (8.5-10.1); Carbon Dioxide 26 mmol/L (20-30); Chloride 102 mmol/L (98-107); Glucose 165 mg/dL (74-106); Potassium 4.2 mmol/L (3.5-5.1); Sodium 139 mmol/L (136-145)
[2022-12-01 06:34] LABS: Bilirubin, Total 16.5 mg/dL (0.2-1.0); Total Protein 6.4 g/dL (5.7-8.2)
[2022-12-01 06:37] LABS: BUN/Creatinine Ratio 30.6 (10.0-20.0)
[2022-12-01 07:17] LABS: Basophils # (auto) 0 10 ^3/uL (0-0.2); Eosinophils # (auto) 0 10 ^3/uL (0-0.8); Lymphocytes # (auto) 0.2 10 ^3/uL (0.4-5.4); Monocytes # (auto) 0.6 10 ^3/uL (0-1.3); Monocytes % (auto) 4.3 % (0.0-12.0); Nucleated Red Blood Cells % 0.2 %; Red Blood Cells 2.38 10^6/uL (4.0-5.20)
[2022-12-01 07:21] LABS: Basophils % (auto) 0.2 % (0.0-2.0); Hematocrit 27.2 % (36.0-46.0); Hemoglobin 9.5 g/dL (12.2-16.2); Lymphocytes % (auto) 1.6 % (10.0-50.0); Mean Corpuscular Volume 114.3 fL (80.0-100.0); Neutrophils # (auto) 12.6 10 ^3/uL (1.6-8.6); Neutrophils % (auto) 93.9 % (37.0-80.0); Red Cell Distribution Width 27.7 % (11.8-14.3); White Blood Cell 13.4 10^3/uL (4.4-10.8)
[2022-12-01 08:16] LABS: Anisocytosis Moderate; Macrocytosis Moderate; Platelet Estimate Decreased
[2022-12-01] MEDS ORDERED: FUROSEMIDE 40 MG TAB PO SCH (10:00)
[2022-12-01] MEDS: predniSONE 20 MG TAB PO SCH (10:58)
[2022-12-01] MEDS: SODIUM CHLOR 0.9% PF (SALINE LOCK) 10ML VIAL/SYR IV SCH ×2 (10:58→22:00)
[2022-12-01] MEDS: LACTULOSE 20Gm/30ML SOLN PO SCH ×2 (10:58→21:36)
[2022-12-01] MEDS: PANTOPRAZOLE 40 MG/10 ML VIAL INJ IV SCH (10:58)
[2022-12-01] MEDS: MEROPENEM 1GM IVPB 100 ML IV SCH ×2 (11:40→21:36)
[2022-12-01] MEDS ORDERED: BUMETANIDE 2.5mg/10ml (0.25 mg/ml) INJ IV ONE (13:15)
[2022-12-01] MEDS: BUMETANIDE 1mg/4ml VIAL (0.25mg/ml) IV SCH (17:29)
[2022-12-02] VITALS (10 sets, daily range): BP systolic 126–148; BP diastolic 68–105; PULSE 76–102; RESP 16–22; TEMP 97.6–99.1; O2SAT 88–97
[2022-12-02] MEDS: InsuLIN REG 1unit/0.01ml Soln (100units/ml) SC SCH ×4 (05:55→21:28)
[2022-12-02] MEDS: BUMETANIDE 1mg/4ml VIAL (0.25mg/ml) IV SCH (06:00)
[2022-12-02] MEDS: OCTREOTIDE ACETATE 100 MCG/ML VL SUBCUT SCH ×2 (06:00→15:08)
[2022-12-02] MEDS: rifAXIMin 550 MG TAB GT SCH ×3 (06:01→21:45)
[2022-12-02 06:13] LABS: Basophils # (auto) 0 10 ^3/uL (0-0.2); Eosinophils # (auto) 0 10 ^3/uL (0-0.8); Eosinophils % (auto) 0.1 % (0.0-7.0); Lymphocytes # (auto) 0.3 10 ^3/uL (0.4-5.4); Monocytes # (auto) 0.8 10 ^3/uL (0-1.3); Nucleated Red Blood Cells % 0.2 %
[2022-12-02 06:14] LABS: Alanine Aminotransferase 297 U/L (7-40); Albumin 3.3 g/dL (3.2-4.8); Alkaline Phosphatase 320 U/L (46-116); Anion Gap 11 (5-15); Aspartate Aminotransferase 354 U/L (13-40); Bilirubin, Total 18.6 mg/dL (0.2-1.0); Calcium 9.3 mg/dL (8.5-10.1); Carbon Dioxide 26 mmol/L (20-30); Chloride 102 mmol/L (98-107); Glucose 206 mg/dL (74-106); Potassium 3.6 mmol/L (3.5-5.1); Sodium 139 mmol/L (136-145); Total Protein 6.6 g/dL (5.7-8.2)
[2022-12-02] MEDS: ACCU-CHEK COMFORT CURVE STRIP VI SCH ×4 (06:16→22:00)
[2022-12-02 06:18] LABS: Basophils % (auto) 0.2 % (0.0-2.0); Hematocrit 27.9 % (36.0-46.0); Hemoglobin 9.9 g/dL (12.2-16.2); Lymphocytes % (auto) 2.5 % (10.0-50.0); Mean Corpuscular Hemoglobin 40.3 pg (28.0-32.0); Mean Corpuscular Hgb Conc. 35.5 g/dL (32.0-36.0); Mean Corpuscular Volume 113.6 fL (80.0-100.0); Monocytes % (auto) 5.7 % (0.0-12.0); Neutrophils # (auto) 12.2 10 ^3/uL (1.6-8.6); Neutrophils % (auto) 91.5 % (37.0-80.0); Red Blood Cells 2.46 10^6/uL (4.0-5.20); White Blood Cell 13.3 10^3/uL (4.4-10.8)
[2022-12-02 06:49] LABS: Blood Urea Nitrogen 81 mg/dL (9-23)
[2022-12-02] MEDS: ALBUTEROL SULF 2.5 MG/0.5ML(0.5%) NEB SOLN NEB SCH ×4 (06:56→18:00)
[2022-12-02] MEDS: IPRATROPIUM BROM 0.5 MG/2.5ML INH SOL NEB SCH ×4 (06:56→18:00)
[2022-12-02 07:21] LABS: Red Cell Distribution Width 27.7 % (11.8-14.3)
[2022-12-02 11:03] LABS: Anisocytosis Moderate; Macrocytosis Marked; Platelet Estimate Decreased
[2022-12-02] MEDS: predniSONE 20 MG TAB PO SCH (12:06)
[2022-12-02] MEDS: THIAMINE HCL 100 MG TAB PO SCH (12:06)
[2022-12-02] MEDS: LACTULOSE 20Gm/30ML SOLN PO SCH ×4 (12:07→23:00)
[2022-12-02] MEDS: PANTOPRAZOLE 40 MG/10 ML VIAL INJ IV SCH (12:07)
[2022-12-02] MEDS: DOPamine 1600MCG/ML D5W 250 ML IV SCH (12:08)
[2022-12-02] MEDS: SODIUM CHLOR 0.9% PF (SALINE LOCK) 10ML VIAL/SYR IV SCH ×2 (12:08→22:00)
[2022-12-02] MEDS: MEROPENEM 1GM IVPB 100 ML IV SCH ×2 (12:33→21:44)
[2022-12-02] MEDS: ONDANSETRON HCL 4 MG/2 ML VIAL IV PRN (15:07)
[2022-12-03] VITALS (16 sets, daily range): BP systolic 122–142; BP diastolic 63–80; PULSE 67–93; RESP 20–23; TEMP 97.4–98.1; O2SAT 89–96
[2022-12-03 05:50] LABS: Basophils # (auto) 0 10 ^3/uL (0-0.2); Eosinophils # (auto) 0 10 ^3/uL (0-0.8); Eosinophils % (auto) 0.3 % (0.0-7.0); Hemoglobin 10.3 g/dL (12.2-16.2); Lymphocytes # (auto) 0.5 10 ^3/uL (0.4-5.4); Lymphocytes % (auto) 3.4 % (10.0-50.0); Neutrophils # (auto) 12.6 10 ^3/uL (1.6-8.6); Nucleated Red Blood Cells % 0.1 %; Red Blood Cells 2.73 10^6/uL (4.0-5.20); White Blood Cell 13.6 10^3/uL (4.4-10.8)
[2022-12-03 05:52] LABS: Basophils % (auto) 0.3 % (0.0-2.0); Hematocrit 30.3 % (36.0-46.0); Mean Corpuscular Hemoglobin 37.9 pg (28.0-32.0); Mean Corpuscular Hgb Conc. 34.1 g/dL (32.0-36.0); Mean Corpuscular Volume 111.2 fL (80.0-100.0); Monocytes # (auto) 0.5 10 ^3/uL (0-1.3); Monocytes % (auto) 3.8 % (0.0-12.0); Neutrophils % (auto) 92.2 % (37.0-80.0)
[2022-12-03] MEDS: IPRATROPIUM BROM 0.5 MG/2.5ML INH SOL NEB SCH ×4 (05:57→19:06)
[2022-12-03] MEDS: ALBUTEROL SULF 2.5 MG/0.5ML(0.5%) NEB SOLN NEB SCH ×4 (05:57→19:05)
[2022-12-03 05:59] LABS: Alanine Aminotransferase 336 U/L (7-40); Albumin 3.3 g/dL (3.2-4.8); Alkaline Phosphatase 376 U/L (46-116); Anion Gap 11 (5-15); Aspartate Aminotransferase 342 U/L (13-40); Carbon Dioxide 26 mmol/L (20-30); Chloride 101 mmol/L (98-107); Glucose 178 mg/dL (74-106); Potassium 3.3 mmol/L (3.5-5.1); Sodium 138 mmol/L (136-145)
[2022-12-03 06:00] LABS: Bilirubin, Total 18.2 mg/dL (0.2-1.0); Total Protein 6.3 g/dL (5.7-8.2)
[2022-12-03] MEDS: OCTREOTIDE ACETATE 100 MCG/ML VL SUBCUT SCH ×4 (06:00→22:00)
[2022-12-03 06:01] LABS: BUN/Creatinine Ratio 33.7 (10.0-20.0)
[2022-12-03] MEDS: rifAXIMin 550 MG TAB GT SCH ×3 (06:03→22:00)
[2022-12-03 06:04] LABS: Red Cell Distribution Width 27.4 % (11.8-14.3)
[2022-12-03] MEDS: InsuLIN REG 1unit/0.01ml Soln (100units/ml) SC SCH ×4 (06:07→23:11)
[2022-12-03] MEDS: ACCU-CHEK COMFORT CURVE STRIP VI SCH ×4 (06:12→22:46)
[2022-12-03 06:26] LABS: Blood Urea Nitrogen 89 mg/dL (9-23)
[2022-12-03 07:57] LABS: Platelet Estimate Decreased; Target Cell MODERATE
[2022-12-03] MEDS: PANTOPRAZOLE 40 MG/10 ML VIAL INJ IV SCH (09:44)
[2022-12-03] MEDS: predniSONE 20 MG TAB PO SCH (09:45)
[2022-12-03] MEDS: THIAMINE HCL 100 MG TAB PO SCH (09:45)
[2022-12-03] MEDS: SODIUM CHLOR 0.9% PF (SALINE LOCK) 10ML VIAL/SYR IV SCH ×2 (09:45→23:17)
[2022-12-03] MEDS: BUMETANIDE 1mg/4ml VIAL (0.25mg/ml) IV SCH (09:46)
[2022-12-03] MEDS: LACTULOSE 20Gm/30ML SOLN PO SCH ×2 (10:00→22:00)
[2022-12-03] MEDS: DOPamine 1600MCG/ML D5W 250 ML IV SCH (10:15)
[2022-12-03] MEDS: MEROPENEM 1GM IVPB 100 ML IV SCH ×2 (11:03→22:45)
[2022-12-03] MEDS ORDERED: POTASSIUM EFFERVESENT TAB 25 MEQ PO ONE (11:30)
[2022-12-03] MEDS: ONDANSETRON HCL 4 MG/2 ML VIAL IV PRN (14:54)
[2022-12-03 20:12] LABS: Base Excess -0.2 mmol/L (-2.0-2.0)
[2022-12-03 23:47] LABS: Base Excess -0.5 mmol/L (-2.0-2.0)
[2022-12-04] VITALS (65 sets, daily range): BP systolic 118–153; BP diastolic 53–88; PULSE 64–85; RESP 10–23; TEMP 97–98.3; O2SAT 88–99
[2022-12-04] MEDS: IPRATROPIUM BROM 0.5 MG/2.5ML INH SOL NEB SCH ×5 (00:17→23:57)
[2022-12-04] MEDS: ALBUTEROL SULF 2.5 MG/0.5ML(0.5%) NEB SOLN NEB SCH ×5 (00:17→23:57)
[2022-12-04 05:27] LABS: Alanine Aminotransferase 267 U/L (7-40); Alkaline Phosphatase 375 U/L (46-116); Anion Gap 9 (5-15); Aspartate Aminotransferase 186 U/L (13-40); Calcium 9.1 mg/dL (8.7-10.4); Carbon Dioxide 29 mmol/L (20-30); Chloride 102 mmol/L (98-107); Glucose 152 mg/dL (74-106); Potassium 3.3 mmol/L (3.5-5.1); Sodium 140 mmol/L (136-145)
[2022-12-04 05:28] LABS: Albumin 3.1 g/dL (3.2-4.8); Bilirubin, Total 18.6 mg/dL (0.2-1.0); Total Protein 6.3 g/dL (5.7-8.2)
[2022-12-04 05:32] LABS: BUN/Creatinine Ratio 28.2 (10.0-20.0)
[2022-12-04] MEDS: rifAXIMin 550 MG TAB GT SCH ×3 (05:32→22:00)
[2022-12-04 05:38] LABS: Blood Urea Nitrogen 70 mg/dL (9-23)
[2022-12-04 05:41] LABS: Basophils # (auto) 0.1 10 ^3/uL (0-0.2); Eosinophils # (auto) 0 10 ^3/uL (0-0.8); Eosinophils % (auto) 0.1 % (0.0-7.0); Lymphocytes # (auto) 0.3 10 ^3/uL (0.4-5.4); Mean Corpuscular Hemoglobin 35.5 pg (28.0-32.0)
[2022-12-04 05:42] LABS: Basophils % (auto) 0.8 % (0.0-2.0); Hematocrit 33.5 % (36.0-46.0); Lymphocytes % (auto) 1.8 % (10.0-50.0); Mean Corpuscular Hgb Conc. 32.8 g/dL (32.0-36.0); Mean Corpuscular Volume 108.2 fL (80.0-100.0); Monocytes # (auto) 0.6 10 ^3/uL (0-1.3); Monocytes % (auto) 3.7 % (0.0-12.0); Neutrophils # (auto) 14.9 10 ^3/uL (1.6-8.6); Neutrophils % (auto) 93.6 % (37.0-80.0); Nucleated Red Blood Cells % 0.1 %; Red Blood Cells 3.09 10^6/uL (4.0-5.20); White Blood Cell 15.9 10^3/uL (4.4-10.8)
[2022-12-04 05:43] LABS: Red Cell Distribution Width 26.3 % (11.8-14.3)
[2022-12-04] MEDS: OCTREOTIDE ACETATE 100 MCG/ML VL SUBCUT SCH ×3 (06:00→22:46)
[2022-12-04] MEDS: ACCU-CHEK COMFORT CURVE STRIP VI SCH ×4 (06:48→22:00)
[2022-12-04] MEDS: InsuLIN REG 1unit/0.01ml Soln (100units/ml) SC SCH ×4 (06:48→22:00)
[2022-12-04] MEDS: SODIUM CHLOR 0.9% PF (SALINE LOCK) 10ML VIAL/SYR IV SCH ×2 (07:26→22:44)
[2022-12-04] MEDS: THIAMINE HCL 100 MG TAB PO SCH (07:27)
[2022-12-04] MEDS: LACTULOSE 20Gm/30ML SOLN PO SCH ×2 (07:27→22:00)
[2022-12-04] MEDS: BUMETANIDE 1mg/4ml VIAL (0.25mg/ml) IV SCH (08:04)
[2022-12-04] MEDS: PANTOPRAZOLE 40 MG/10 ML VIAL INJ IV SCH (08:04)
[2022-12-04] MEDS ORDERED: predniSONE 20 MG TAB PO SCH (10:00)
[2022-12-04] MEDS: POTASSIUM CHL 20MEQ/100ML 100 ML IV SCH ×2 (10:22→11:30)
[2022-12-04] MEDS: DOPamine 1600MCG/ML D5W 250 ML IV SCH (10:22)
[2022-12-04] MEDS: MEROPENEM 1GM IVPB 100 ML IV SCH ×2 (10:22→23:00)
[2022-12-04] MEDS ORDERED: FUROSEMIDE 20 MG/2 ML VIAL IV ONE (12:45)
[2022-12-04] MEDS: methylPREDNISolone SOD SUCC 40 MG/ML VL IV SCH (12:46)
[2022-12-05] VITALS (29 sets, daily range): BP systolic 95–146; BP diastolic 45–89; PULSE 71–96; RESP 10–22; TEMP 97.1–98.4; O2SAT 85–99
[2022-12-05] MEDS: DOPamine 1600MCG/ML D5W 250 ML IV SCH ×2 (03:00→18:54)
[2022-12-05] MEDS: rifAXIMin 550 MG TAB GT SCH ×3 (06:00→23:18)
[2022-12-05 06:17] LABS: Eosinophils # (auto) 0 10 ^3/uL (0-0.8); Hemoglobin 10.4 g/dL (12.2-16.2); Lymphocytes # (auto) 0.1 10 ^3/uL (0.4-5.4)
[2022-12-05 06:19] LABS: Basophils # (auto) 0 10 ^3/uL (0-0.2); Basophils % (auto) 0.3 % (0.0-2.0); Lymphocytes % (auto) 0.7 % (10.0-50.0); Mean Corpuscular Hemoglobin 36.6 pg (28.0-32.0); Mean Corpuscular Hgb Conc. 33.5 g/dL (32.0-36.0); Mean Corpuscular Volume 109.4 fL (80.0-100.0); Monocytes # (auto) 0.1 10 ^3/uL (0-1.3); Monocytes % (auto) 1.2 % (0.0-12.0); Neutrophils # (auto) 12.4 10 ^3/uL (1.6-8.6); Neutrophils % (auto) 97.8 % (37.0-80.0); Red Blood Cells 2.83 10^6/uL (4.0-5.20); White Blood Cell 12.7 10^3/uL (4.4-10.8)
[2022-12-05] MEDS: ALBUTEROL SULF 2.5 MG/0.5ML(0.5%) NEB SOLN NEB SCH ×3 (06:31→18:15)
[2022-12-05] MEDS: IPRATROPIUM BROM 0.5 MG/2.5ML INH SOL NEB SCH ×3 (06:31→18:15)
[2022-12-05 06:33] LABS: Red Cell Distribution Width 26.1 % (11.8-14.3)
[2022-12-05 06:34] LABS: Anion Gap 9 (5-15); Carbon Dioxide 29 mmol/L (20-30); Chloride 102 mmol/L (98-107); Potassium 3.5 mmol/L (3.5-5.1); Sodium 140 mmol/L (136-145)
[2022-12-05 06:35] LABS: Calcium 8.9 mg/dL (8.7-10.4)
[2022-12-05 06:40] LABS: Blood Urea Nitrogen 72 mg/dL (9-23); Glucose 206 mg/dL (74-106); Magnesium 2.2 mg/dL (1.6-2.6)
[2022-12-05 06:45] LABS: BUN/Creatinine Ratio 31.4 (10.0-20.0)
[2022-12-05] MEDS: ACCU-CHEK COMFORT CURVE STRIP VI SCH ×4 (07:00→22:00)
[2022-12-05] MEDS: InsuLIN REG 1unit/0.01ml Soln (100units/ml) SC SCH ×4 (07:00→22:00)
[2022-12-05 07:54] LABS: Platelet Estimate Decreased
[2022-12-05 07:55] LABS: Anisocytosis Slight; Macrocytosis Slight
[2022-12-05] MEDS: OCTREOTIDE ACETATE 100 MCG/ML VL SUBCUT SCH ×3 (09:00→23:19)
[2022-12-05] MEDS: PANTOPRAZOLE 40 MG/10 ML VIAL INJ IV SCH (10:32)
[2022-12-05] MEDS: BUMETANIDE 1mg/4ml VIAL (0.25mg/ml) IV SCH (10:32)
[2022-12-05] MEDS: methylPREDNISolone SOD SUCC 40 MG/ML VL IV SCH (10:32)
[2022-12-05] MEDS: SODIUM CHLOR 0.9% PF (SALINE LOCK) 10ML VIAL/SYR IV SCH ×2 (10:33→22:00)
[2022-12-05] MEDS: THIAMINE HCL 100 MG TAB PO SCH (10:33)
[2022-12-05] MEDS: LACTULOSE 20Gm/30ML SOLN PO SCH ×2 (10:33→23:18)
[2022-12-05] MEDS: MEROPENEM 1GM IVPB 100 ML IV SCH ×2 (12:25→23:19)
[2022-12-06] VITALS (30 sets, daily range): BP systolic 121–171; BP diastolic 59–88; PULSE 69–90; RESP 8–18; TEMP 97.7–98.6; O2SAT 93–99
[2022-12-06] MEDS: IPRATROPIUM BROM 0.5 MG/2.5ML INH SOL NEB SCH ×4 (00:10→18:00)
[2022-12-06] MEDS: ALBUTEROL SULF 2.5 MG/0.5ML(0.5%) NEB SOLN NEB SCH ×4 (00:10→18:00)
[2022-12-06 06:49] LABS: Basophils # (auto) 0.1 10 ^3/uL (0-0.2); Eosinophils # (auto) 0 10 ^3/uL (0-0.8); Lymphocytes # (auto) 0.2 10 ^3/uL (0.4-5.4); Monocytes # (auto) 0.3 10 ^3/uL (0-1.3)
[2022-12-06 06:52] LABS: Basophils % (auto) 0.4 % (0.0-2.0); Hematocrit 31.1 % (36.0-46.0); Hemoglobin 10.5 g/dL (12.2-16.2); Lymphocytes % (auto) 1.5 % (10.0-50.0); Mean Corpuscular Hemoglobin 36.2 pg (28.0-32.0); Mean Corpuscular Hgb Conc. 33.8 g/dL (32.0-36.0); Mean Corpuscular Volume 107.3 fL (80.0-100.0); Monocytes % (auto) 1.8 % (0.0-12.0); Neutrophils # (auto) 15.4 10 ^3/uL (1.6-8.6); Neutrophils % (auto) 96.3 % (37.0-80.0)
[2022-12-06] MEDS: InsuLIN REG 1unit/0.01ml Soln (100units/ml) SC SCH ×4 (07:00→22:03)
[2022-12-06] MEDS: ACCU-CHEK COMFORT CURVE STRIP VI SCH ×4 (07:00→21:43)
[2022-12-06 07:01] LABS: Red Cell Distribution Width 26.2 % (11.8-14.3)
[2022-12-06 07:05] LABS: Alanine Aminotransferase 205 U/L (7-40); Alkaline Phosphatase 449 U/L (46-116); Anion Gap 8 (5-15); Aspartate Aminotransferase 168 U/L (13-40); Bilirubin, Total 19.1 mg/dL (0.2-1.0); Blood Urea Nitrogen 71 mg/dL (9-23); Calcium 8.6 mg/dL (8.7-10.4); Carbon Dioxide 30 mmol/L (20-30); Chloride 103 mmol/L (98-107); Glucose 196 mg/dL (74-106); Potassium 3.1 mmol/L (3.5-5.1); Sodium 141 mmol/L (136-145); Total Protein 6.1 g/dL (5.7-8.2)
[2022-12-06 07:32] LABS: Anisocytosis Moderate; Platelet Estimate Decreased
[2022-12-06 07:33] LABS: Macrocytosis Moderate
[2022-12-06] MEDS: rifAXIMin 550 MG TAB GT SCH ×3 (07:56→21:40)
[2022-12-06] MEDS: OCTREOTIDE ACETATE 100 MCG/ML VL SUBCUT SCH ×3 (07:57→21:41)
[2022-12-06 08:45] LABS: BUN/Creatinine Ratio 32.4 (10.0-20.0)
[2022-12-06] MEDS: LACTULOSE 20Gm/30ML SOLN PO SCH ×2 (10:00→21:40)
[2022-12-06] MEDS: SODIUM CHLOR 0.9% PF (SALINE LOCK) 10ML VIAL/SYR IV SCH ×2 (10:00→21:40)
[2022-12-06] MEDS: methylPREDNISolone SOD SUCC 40 MG/ML VL IV SCH (10:00)
[2022-12-06] MEDS: BUMETANIDE 1mg/4ml VIAL (0.25mg/ml) IV SCH (10:00)
[2022-12-06] MEDS: THIAMINE HCL 100 MG TAB PO SCH (10:00)
[2022-12-06] MEDS: PANTOPRAZOLE 40 MG/10 ML VIAL INJ IV SCH (10:00)
[2022-12-06] MEDS ORDERED: POTASSIUM CHL 20 Meq TABLET PO ONE (11:00)
[2022-12-06] MEDS: levoFLOXacin 500MG 100 ML IV SCH (13:46)
[2022-12-06] MEDS: DOPamine 1600MCG/ML D5W 250 ML IV SCH (23:46)
[2022-12-07] VITALS (30 sets, daily range): BP systolic 109–151; BP diastolic 46–85; PULSE 55–91; RESP 9–17; TEMP 97.4–98.2; O2SAT 86–100
[2022-12-07] MEDS: ALBUTEROL SULF 2.5 MG/0.5ML(0.5%) NEB SOLN NEB SCH ×4 (00:19→18:35)
[2022-12-07] MEDS: IPRATROPIUM BROM 0.5 MG/2.5ML INH SOL NEB SCH ×4 (00:19→18:35)
[2022-12-07 05:30] LABS: Hemoglobin 10.7 g/dL (12.2-16.2)
[2022-12-07 05:32] LABS: Hematocrit 31.4 % (36.0-46.0); Mean Corpuscular Hgb Conc. 34.2 g/dL (32.0-36.0); Red Blood Cells 2.91 10^6/uL (4.0-5.20); White Blood Cell 15.1 10^3/uL (4.4-10.8)
[2022-12-07] MEDS: rifAXIMin 550 MG TAB GT SCH (05:32)
[2022-12-07] MEDS: OCTREOTIDE ACETATE 100 MCG/ML VL SUBCUT SCH ×3 (05:33→22:05)
[2022-12-07 05:36] LABS: Band Neutrophils % (manual) 0; Basophils % (manual) 0 (0.0-2.0); Blast Cells 0; Eosinophils % (manual) 0 (0-7); Metamyelocytes % 0; Myelocytes % 0; Promyelocytes % 0; Reactive Lymphocytes 0
[2022-12-07 05:50] LABS: Alkaline Phosphatase 455 U/L (46-116); Anion Gap 9 (5-15); Calcium 8.7 mg/dL (8.7-10.4); Carbon Dioxide 31 mmol/L (20-30); Chloride 100 mmol/L (98-107); Glucose 184 mg/dL (74-106); Sodium 140 mmol/L (136-145)
[2022-12-07 05:51] LABS: Albumin 3.3 g/dL (3.2-4.8); Bilirubin, Total 20.6 mg/dL (0.2-1.0)
[2022-12-07 05:52] LABS: Alanine Aminotransferase 205 U/L (7-40); Aspartate Aminotransferase 172 U/L (13-40); BUN/Creatinine Ratio 31.8 (10.0-20.0); Blood Urea Nitrogen 64 mg/dL (9-23); Total Protein 6.1 g/dL (5.7-8.2)
[2022-12-07] MEDS: ACCU-CHEK COMFORT CURVE STRIP VI SCH ×4 (06:30→22:15)
[2022-12-07] MEDS: InsuLIN REG 1unit/0.01ml Soln (100units/ml) SC SCH ×4 (06:34→22:49)
[2022-12-07 06:50] LABS: Lymphocytes % (manual) 1 (10.0-50.0); Monocytes % (manual) 3 (0-12)
[2022-12-07 06:51] LABS: Platelet Estimate Decreased
[2022-12-07 06:52] LABS: Anisocytosis Moderate; Macrocytosis Moderate
[2022-12-07 06:53] LABS: Target Cell MODERATE
[2022-12-07] MEDS: BUMETANIDE 1mg/4ml VIAL (0.25mg/ml) IV SCH (09:07)
[2022-12-07] MEDS: LACTULOSE 20Gm/30ML SOLN PO SCH ×2 (09:07→22:01)
[2022-12-07] MEDS: methylPREDNISolone SOD SUCC 40 MG/ML VL IV SCH (09:08)
[2022-12-07] MEDS: levoFLOXacin 500MG 100 ML IV SCH (09:08)
[2022-12-07] MEDS: PANTOPRAZOLE 40 MG TAB PO SCH (09:08)
[2022-12-07] MEDS: THIAMINE HCL 100 MG TAB PO SCH (09:08)
[2022-12-07] MEDS: SODIUM CHLOR 0.9% PF (SALINE LOCK) 10ML VIAL/SYR IV SCH ×2 (09:09→22:01)
[2022-12-07] MEDS ORDERED: POTASSIUM CHL 20 Meq TABLET PO ONE (12:45)
[2022-12-07] MEDS: URSODIOL 300 MG CAP PO SCH ×2 (14:51→22:01)
[2022-12-08] VITALS (19 sets, daily range): BP systolic 120–140; BP diastolic 57–82; PULSE 57–82; RESP 11–18; TEMP 97.4–98; O2SAT 89–100
[2022-12-08] MEDS: ALBUTEROL SULF 2.5 MG/0.5ML(0.5%) NEB SOLN NEB SCH (00:50)
[2022-12-08] MEDS: IPRATROPIUM BROM 0.5 MG/2.5ML INH SOL NEB SCH (00:50)
[2022-12-08 05:13] LABS: Eosinophils # (auto) 0 10 ^3/uL (0-0.8); Lymphocytes # (auto) 0.2 10 ^3/uL (0.4-5.4); Lymphocytes % (auto) 1.5 % (10.0-50.0); Mean Corpuscular Volume 109.2 fL (80.0-100.0); Monocytes # (auto) 0.3 10 ^3/uL (0-1.3)
[2022-12-08 05:16] LABS: Basophils # (auto) 0 10 ^3/uL (0-0.2); Basophils % (auto) 0.1 % (0.0-2.0); Hematocrit 30.8 % (36.0-46.0); Hemoglobin 10.4 g/dL (12.2-16.2); Mean Corpuscular Hgb Conc. 33.9 g/dL (32.0-36.0); Monocytes % (auto) 2.6 % (0.0-12.0); Neutrophils # (auto) 10.9 10 ^3/uL (1.6-8.6); Neutrophils % (auto) 95.8 % (37.0-80.0); Red Blood Cells 2.82 10^6/uL (4.0-5.20); White Blood Cell 11.3 10^3/uL (4.4-10.8)
[2022-12-08 05:17] LABS: Red Cell Distribution Width 25.4 % (11.8-14.3)
[2022-12-08 05:29] LABS: Alkaline Phosphatase 394 U/L (46-116); Anion Gap 8 (5-15); Bilirubin, Total 20.1 mg/dL (0.2-1.0); Calcium 8.6 mg/dL (8.7-10.4); Carbon Dioxide 31 mmol/L (20-30); Chloride 102 mmol/L (98-107); Glucose 225 mg/dL (74-106); Magnesium 1.9 mg/dL (1.6-2.6); Potassium 3.5 mmol/L (3.5-5.1); Sodium 141 mmol/L (136-145)
[2022-12-08 05:53] LABS: Alanine Aminotransferase 180 U/L (7-40); Aspartate Aminotransferase 130 U/L (13-40); Blood Urea Nitrogen 63 mg/dL (9-23); Total Protein 5.6 g/dL (5.7-8.2)
[2022-12-08 05:54] LABS: BUN/Creatinine Ratio 30.6 (10.0-20.0)
[2022-12-08] MEDS ORDERED: ALBUTEROL SULF 2.5 MG/0.5ML(0.5%) NEB SOLN NEB PRN ×2 (06:00→11:00)
[2022-12-08] MEDS ORDERED: IPRATROPIUM BROM 0.5 MG/2.5ML INH SOL NEB SCH (06:00)
[2022-12-08] MEDS: OCTREOTIDE ACETATE 100 MCG/ML VL SUBCUT SCH ×3 (06:00→21:22)
[2022-12-08] MEDS: ACCU-CHEK COMFORT CURVE STRIP VI SCH ×4 (06:54→21:23)
[2022-12-08] MEDS: InsuLIN REG 1unit/0.01ml Soln (100units/ml) SC SCH ×4 (06:55→21:30)
[2022-12-08 07:23] LABS: Anisocytosis Moderate; Macrocytosis Slight
[2022-12-08 07:24] LABS: Large Platelets FEW; Platelet Estimate Markedly Decreased; Target Cell FEW
[2022-12-08] MEDS: URSODIOL 300 MG CAP PO SCH ×2 (10:00→21:06)
[2022-12-08] MEDS: THIAMINE HCL 100 MG TAB PO SCH (10:00)
[2022-12-08] MEDS: PANTOPRAZOLE 40 MG TAB PO SCH (10:00)
[2022-12-08] MEDS: LACTULOSE 20Gm/30ML SOLN PO SCH ×2 (10:00→21:06)
[2022-12-08] MEDS: predniSONE 20 MG TAB PO SCH (10:00)
[2022-12-08] MEDS: levoFLOXacin 500MG 100 ML IV SCH (10:15)
[2022-12-08] MEDS: SODIUM CHLOR 0.9% PF (SALINE LOCK) 10ML VIAL/SYR IV SCH ×2 (10:15→21:31)
[2022-12-08] MEDS: BUMETANIDE 1mg/4ml VIAL (0.25mg/ml) IV SCH (10:21)
[2022-12-08] MEDS ORDERED: IPRATROPIUM BROM 0.5 MG/2.5ML INH SOL NEB PRN (11:00)
[2022-12-09] VITALS (8 sets, daily range): BP systolic 139–153; BP diastolic 66–105; PULSE 70–99; RESP 12–17; TEMP 98.1–98.9; O2SAT 91–99
[2022-12-09 05:44] LABS: Alkaline Phosphatase 431 U/L (46-116); Anion Gap 6 (5-15); Calcium 8.9 mg/dL (8.7-10.4); Carbon Dioxide 33 mmol/L (20-30); Chloride 103 mmol/L (98-107); Glucose 135 mg/dL (74-106); Potassium 3.3 mmol/L (3.5-5.1); Sodium 142 mmol/L (136-145)
[2022-12-09 05:46] LABS: Albumin 3.3 g/dL (3.2-4.8); Bilirubin, Total 23.8 mg/dL (0.2-1.0)
[2022-12-09] MEDS: OCTREOTIDE ACETATE 100 MCG/ML VL SUBCUT SCH ×3 (06:00→22:22)
[2022-12-09] MEDS: ACCU-CHEK COMFORT CURVE STRIP VI SCH ×4 (06:37→22:37)
[2022-12-09] MEDS: InsuLIN REG 1unit/0.01ml Soln (100units/ml) SC SCH ×4 (06:38→22:41)
[2022-12-09 07:10] LABS: Alanine Aminotransferase 187 U/L (7-40); Aspartate Aminotransferase 150 U/L (13-40); BUN/Creatinine Ratio 32.7 (10.0-20.0); Blood Urea Nitrogen 64 mg/dL (9-23); Total Protein 6.2 g/dL (5.7-8.2)
[2022-12-09] MEDS: URSODIOL 300 MG CAP PO SCH ×3 (10:00→22:00)
[2022-12-09] MEDS: levoFLOXacin 500MG 100 ML IV SCH (10:30)
[2022-12-09] MEDS: BUMETANIDE 1mg/4ml VIAL (0.25mg/ml) IV SCH (10:30)
[2022-12-09] MEDS: PANTOPRAZOLE 40 MG TAB PO SCH (10:31)
[2022-12-09] MEDS: THIAMINE HCL 100 MG TAB PO SCH (10:31)
[2022-12-09] MEDS: LACTULOSE 20Gm/30ML SOLN PO SCH ×2 (10:31→22:00)
[2022-12-09] MEDS: predniSONE 20 MG TAB PO SCH (10:31)
[2022-12-09] MEDS: SODIUM CHLOR 0.9% PF (SALINE LOCK) 10ML VIAL/SYR IV SCH ×2 (10:42→22:21)
[2022-12-10] VITALS (8 sets, daily range): BP systolic 126–140; BP diastolic 74–90; PULSE 71–103; RESP 12–19; TEMP 97.5–100; O2SAT 96–100
[2022-12-10] MEDS: OCTREOTIDE ACETATE 100 MCG/ML VL SUBCUT SCH ×3 (05:54→21:39)
[2022-12-10] MEDS: ACCU-CHEK COMFORT CURVE STRIP VI SCH ×4 (05:59→21:34)
[2022-12-10] MEDS: InsuLIN REG 1unit/0.01ml Soln (100units/ml) SC SCH ×4 (06:03→21:35)
[2022-12-10] MEDS: THIAMINE HCL 100 MG TAB PO SCH (10:19)
[2022-12-10] MEDS: predniSONE 20 MG TAB PO SCH (10:19)
[2022-12-10] MEDS: PANTOPRAZOLE 40 MG TAB PO SCH (10:19)
[2022-12-10] MEDS: LACTULOSE 20Gm/30ML SOLN PO SCH ×2 (10:19→21:54)
[2022-12-10] MEDS: levoFLOXacin 500MG 100 ML IV SCH (10:19)
[2022-12-10] MEDS: URSODIOL 300 MG CAP PO SCH ×2 (10:20→21:54)
[2022-12-10] MEDS: BUMETANIDE 1mg/4ml VIAL (0.25mg/ml) IV SCH (10:20)
[2022-12-10] MEDS: SODIUM CHLOR 0.9% PF (SALINE LOCK) 10ML VIAL/SYR IV SCH ×2 (10:21→21:34)
[2022-12-11] VITALS (7 sets, daily range): BP systolic 128–150; BP diastolic 73–91; PULSE 68–93; RESP 14–19; TEMP 97.3–98.8; O2SAT 95–100
[2022-12-11] MEDS: OCTREOTIDE ACETATE 100 MCG/ML VL SUBCUT SCH ×3 (05:33→22:00)
[2022-12-11] MEDS: ACCU-CHEK COMFORT CURVE STRIP VI SCH ×4 (06:13→22:09)
[2022-12-11] MEDS: InsuLIN REG 1unit/0.01ml Soln (100units/ml) SC SCH ×4 (06:14→22:00)
[2022-12-11] MEDS: PANTOPRAZOLE 40 MG TAB PO SCH ×2 (10:20→10:32)
[2022-12-11] MEDS: BUMETANIDE 1mg/4ml VIAL (0.25mg/ml) IV SCH ×2 (10:20→10:34)
[2022-12-11] MEDS: URSODIOL 300 MG CAP PO SCH ×3 (10:20→22:00)
[2022-12-11] MEDS: predniSONE 20 MG TAB PO SCH ×2 (10:20→10:33)
[2022-12-11] MEDS: LACTULOSE 20Gm/30ML SOLN PO SCH ×3 (10:20→22:00)
[2022-12-11] MEDS: THIAMINE HCL 100 MG TAB PO SCH ×2 (10:20→10:33)
[2022-12-11] MEDS: levoFLOXacin 500MG 100 ML IV SCH (10:32)
[2022-12-11] MEDS: SODIUM CHLOR 0.9% PF (SALINE LOCK) 10ML VIAL/SYR IV SCH ×2 (10:32→22:09)
[2022-12-11 14:00] LABS: Basophils # (auto) 0 10 ^3/uL (0-0.2); Basophils % (auto) 0.2 % (0.0-2.0); Eosinophils # (auto) 0.2 10 ^3/uL (0-0.8); Eosinophils % (auto) 2.2 % (0.0-7.0); Hematocrit 35.4 % (36.0-46.0); Lymphocytes # (auto) 0.5 10 ^3/uL (0.4-5.4); Lymphocytes % (auto) 6.9 % (10.0-50.0); Mean Corpuscular Hemoglobin 36.5 pg (28.0-32.0); Mean Corpuscular Volume 107.6 fL (80.0-100.0); Monocytes # (auto) 0.3 10 ^3/uL (0-1.3); Monocytes % (auto) 3.4 % (0.0-12.0); Neutrophils # (auto) 6.6 10 ^3/uL (1.6-8.6); Neutrophils % (auto) 87.3 % (37.0-80.0); Red Blood Cells 3.29 10^6/uL (4.0-5.20); Red Cell Distribution Width 24.1 % (11.8-14.3); White Blood Cell 7.6 10^3/uL (4.4-10.8)
[2022-12-11 14:16] LABS: Chloride 102 mmol/L (98-107); Potassium 3.6 mmol/L (3.5-5.1); Sodium 143 mmol/L (136-145)
[2022-12-11 14:17] LABS: Anion Gap 6 (5-15); Calcium 8.9 mg/dL (8.7-10.4); Carbon Dioxide 35 mmol/L (20-30)
[2022-12-11 14:22] LABS: Glucose 104 mg/dL (74-106)
[2022-12-11 14:30] LABS: BUN/Creatinine Ratio 33.5 (10.0-20.0); Blood Urea Nitrogen 65 mg/dL (9-23)
[2022-12-12] VITALS (7 sets, daily range): BP systolic 110–133; BP diastolic 65–82; PULSE 60–88; RESP 16–22; TEMP 96.9–98; O2SAT 94–99
[2022-12-12] MEDS: InsuLIN REG 1unit/0.01ml Soln (100units/ml) SC SCH ×4 (05:33→21:35)
[2022-12-12] MEDS: OCTREOTIDE ACETATE 100 MCG/ML VL SUBCUT SCH ×3 (05:33→21:34)
[2022-12-12] MEDS: ACCU-CHEK COMFORT CURVE STRIP VI SCH ×4 (05:33→21:15)
[2022-12-12] MEDS: URSODIOL 300 MG CAP PO SCH ×2 (10:38→21:19)
[2022-12-12] MEDS: predniSONE 20 MG TAB PO SCH (10:38)
[2022-12-12] MEDS: THIAMINE HCL 100 MG TAB PO SCH (10:38)
[2022-12-12] MEDS: LACTULOSE 20Gm/30ML SOLN PO SCH ×2 (10:38→21:20)
[2022-12-12] MEDS: SODIUM CHLOR 0.9% PF (SALINE LOCK) 10ML VIAL/SYR IV SCH ×2 (10:38→21:20)
[2022-12-12] MEDS: PANTOPRAZOLE 40 MG TAB PO SCH (10:44)
[2022-12-12 22:23] LABS: Eosinophils # (auto) 0 10 ^3/uL (0-0.8); Lymphocytes # (auto) 0.1 10 ^3/uL (0.4-5.4); Monocytes # (auto) 0.2 10 ^3/uL (0-1.3); Monocytes % (auto) 2.1 % (0.0-12.0)
[2022-12-12 22:25] LABS: Basophils # (auto) 0 10 ^3/uL (0-0.2); Basophils % (auto) 0.5 % (0.0-2.0); Hematocrit 34.3 % (36.0-46.0); Hemoglobin 11.7 g/dL (12.2-16.2); Lymphocytes % (auto) 1.7 % (10.0-50.0); Mean Corpuscular Volume 108.8 fL (80.0-100.0); Neutrophils # (auto) 7.8 10 ^3/uL (1.6-8.6); Neutrophils % (auto) 95.7 % (37.0-80.0); Red Blood Cells 3.16 10^6/uL (4.0-5.20); White Blood Cell 8.2 10^3/uL (4.4-10.8)
[2022-12-12 22:28] LABS: Red Cell Distribution Width 22.6 % (11.8-14.3)
[2022-12-12 22:32] LABS: Chloride 101 mmol/L (98-107); Potassium 3.6 mmol/L (3.5-5.1); Sodium 141 mmol/L (136-145)
[2022-12-12 22:33] LABS: Anion Gap 10 (5-15); Calcium 9.1 mg/dL (8.5-10.1); Carbon Dioxide 30 mmol/L (20-30)
[2022-12-12 22:38] LABS: Glucose 324 mg/dL (74-106)
[2022-12-12 22:52] LABS: BUN/Creatinine Ratio 33.1 (10.0-20.0); Blood Urea Nitrogen 56 mg/dL (9-23)
[2022-12-13] VITALS (7 sets, daily range): BP systolic 135–157; BP diastolic 72–92; PULSE 60–92; RESP 16–20; TEMP 97.2–98.3; O2SAT 94–98
[2022-12-13] MEDS: OCTREOTIDE ACETATE 100 MCG/ML VL SUBCUT SCH ×3 (06:29→21:45)
[2022-12-13] MEDS: ACCU-CHEK COMFORT CURVE STRIP VI SCH ×4 (06:29→22:49)
[2022-12-13] MEDS: InsuLIN REG 1unit/0.01ml Soln (100units/ml) SC SCH ×4 (06:32→22:47)
[2022-12-13] MEDS: BUMETANIDE 1 MG TAB PO SCH (09:48)
[2022-12-13] MEDS: PANTOPRAZOLE 40 MG TAB PO SCH (09:48)
[2022-12-13] MEDS: levoFLOXacin 250 MG TAB PO SCH (09:48)
[2022-12-13] MEDS: SODIUM CHLOR 0.9% PF (SALINE LOCK) 10ML VIAL/SYR IV SCH ×2 (09:49→21:47)
[2022-12-13] MEDS: predniSONE 20 MG TAB PO SCH (09:49)
[2022-12-13] MEDS: THIAMINE HCL 100 MG TAB PO SCH (09:49)
[2022-12-13] MEDS: LACTULOSE 20Gm/30ML SOLN PO SCH ×2 (09:53→21:42)
[2022-12-13] MEDS: URSODIOL 300 MG CAP PO SCH ×2 (10:00→21:43)
[2022-12-13 14:09] LABS: Alkaline Phosphatase 370 U/L (46-116); Anion Gap 8 (5-15); Bilirubin, Total 28.8 mg/dL (0.2-1.0); Calcium 9.4 mg/dL (8.5-10.1); Carbon Dioxide 32 mmol/L (20-30); Chloride 102 mmol/L (98-107); Glucose 164 mg/dL (74-106); Potassium 3.3 mmol/L (3.5-5.1); Sodium 142 mmol/L (136-145)
[2022-12-13 14:25] LABS: Alanine Aminotransferase 109 U/L (7-40); Aspartate Aminotransferase 95 U/L (13-40); BUN/Creatinine Ratio 30.6 (10.0-20.0); Blood Urea Nitrogen 53 mg/dL (9-23); Total Protein 6.4 g/dL (5.7-8.2)
[2022-12-13 21:41] LABS: COVID19 ANTIGEN SOFIA FIA NEGATIVE (NEGATIVE)
[2022-12-14] MEDS: OCTREOTIDE ACETATE 100 MCG/ML VL SUBCUT SCH (06:00)
[2022-12-14] MEDS: InsuLIN REG 1unit/0.01ml Soln (100units/ml) SC SCH ×3 (06:19→17:00)
[2022-12-14] MEDS: ACCU-CHEK COMFORT CURVE STRIP VI SCH ×3 (06:23→18:43)
[2022-12-14 07:50] VITALS: O2SAT 95
[2022-12-14 08:15] VITALS: BP 125/79; PULSE 98; RESP 22; TEMP 97.5; O2SAT 94
[2022-12-14 09:00] LABS: Basophils # (auto) 0 10 ^3/uL (0-0.2); Basophils % (auto) 0.2 % (0.0-2.0); Eosinophils # (auto) 0 10 ^3/uL (0-0.8); Eosinophils % (auto) 0.2 % (0.0-7.0); Hematocrit 34.9 % (36.0-46.0); Hemoglobin 11.9 g/dL (12.2-16.2); Lymphocytes # (auto) 0.7 10 ^3/uL (0.4-5.4); Lymphocytes % (auto) 7.1 % (10.0-50.0); Mean Corpuscular Hemoglobin 36.2 pg (28.0-32.0); Mean Corpuscular Volume 106.3 fL (80.0-100.0); Monocytes # (auto) 0.6 10 ^3/uL (0-1.3); Monocytes % (auto) 6.3 % (0.0-12.0); Neutrophils # (auto) 8.5 10 ^3/uL (1.6-8.6); Neutrophils % (auto) 86.2 % (37.0-80.0); Red Blood Cells 3.28 10^6/uL (4.0-5.20); White Blood Cell 9.9 10^3/uL (4.4-10.8)
[2022-12-14 09:20] LABS: Alkaline Phosphatase 386 U/L (46-116); Anion Gap 8 (5-15); Bilirubin, Total 25.1 mg/dL (0.2-1.0); Calcium 9.3 mg/dL (8.7-10.4); Carbon Dioxide 32 mmol/L (20-30); Chloride 102 mmol/L (98-107); Glucose 153 mg/dL (74-106); Sodium 142 mmol/L (136-145)
[2022-12-14 09:23] LABS: Alanine Aminotransferase 103 U/L (7-40); Aspartate Aminotransferase 96 U/L (13-40); BUN/Creatinine Ratio 30.7 (10.0-20.0); Blood Urea Nitrogen 55 mg/dL (9-23); Total Protein 6.4 g/dL (5.7-8.2)
[2022-12-14 09:27] LABS: Potassium 2.8 mmol/L (3.5-5.1)
[2022-12-14] MEDS ORDERED: POTASSIUM CHLORIDE 40 MEQ, LIDOCAINE 1% (LOCAL ANESTH.) 4 ML in SODIUM CHL 0.9% 250 ML IV ONE (10:00)
[2022-12-14] MEDS: POTASSIUM CHL 20 Meq TABLET PO ONE ×2 (10:00→10:54)
[2022-12-14] MEDS ORDERED: SPIRONOLACTONE 25 MG TAB PO ONE (10:00)
[2022-12-14] MEDS ORDERED: SPIRONOLACTONE 25 MG TAB PO SCH (10:00)
[2022-12-14] MEDS: PANTOPRAZOLE 40 MG TAB PO SCH (10:52)
[2022-12-14] MEDS: predniSONE 20 MG TAB PO SCH (10:53)
[2022-12-14] MEDS: BUMETANIDE 1 MG TAB PO SCH (10:53)
[2022-12-14] MEDS: THIAMINE HCL 100 MG TAB PO SCH (10:53)
[2022-12-14] MEDS: levoFLOXacin 250 MG TAB PO SCH (10:53)
[2022-12-14] MEDS: LACTULOSE 20Gm/30ML SOLN PO SCH (10:54)
[2022-12-14] MEDS: SODIUM CHLOR 0.9% PF (SALINE LOCK) 10ML VIAL/SYR IV SCH (10:55)
[2022-12-14] MEDS: URSODIOL 300 MG CAP PO SCH (11:04)
[2022-12-14 12:15] VITALS: BP 130/76; PULSE 81; RESP 19; TEMP 98; O2SAT 94
[2022-12-14 15:20] VITALS: BP 118/91; PULSE 90; RESP 19; TEMP 97.4; O2SAT 94
[2022-12-14] MEDS ORDERED: POTASSIUM CHL 20 Meq TABLET PO ONE (16:45)
[2022-12-14 16:55] VITALS: BP 118/91; PULSE 90; RESP 19; TEMP 97.4; O2SAT 94
[2022-12-14 18:04] VITALS: BP 125/79
== END 2022-12-14 20:05 | DRG 720 ==
LOC: ER 15:41 → EDBD 15:41 → EDUNIT# 18:25 → TELE 18:25 → ICU WEST 11-14 19:05 → TELE-CENTR 11-30 20:14 → DOU IN ICU 12-04 00:20 → ICU CENTRL 12-04 00:33 → DOU IN ICU 12-04 00:51 → TELE-CENTR 12-09 00:04 → CENTRAL 12-13 11:16
PROVIDERS: ADMIT Nurse Practitioner Family; ATTEND Internal Medicine
PROC: 5A1955Z Respiratory Ventilation, Greater than 96 Consecutive Hours (ICD-10-PCS; principal; 2022-11-13)
PROC: 02HV33Z Insertion of Infusion Device into Superior Vena Cava, Percutaneous Approach (ICD-10-PCS; 2022-11-13)
PROC: 0BH17EZ Insertion of Endotracheal Airway into Trachea, Via Natural or Artificial Opening (ICD-10-PCS; 2022-11-13)
PROC: 02HV33Z Insertion of Infusion Device into Superior Vena Cava, Percutaneous Approach (ICD-10-PCS; 2022-11-17)
PROC: B548ZZA Ultrasonography of Superior Vena Cava, Guidance (ICD-10-PCS; 2022-11-17)
PROC: 4A143B0 Monitoring of Venous Pressure, Central, Percutaneous Approach (ICD-10-PCS; 2022-11-17)
PROC: 5A1D70Z Performance of Urinary Filtration, Intermittent, Less than 6 Hours Per Day (ICD-10-PCS; 2022-11-18)
PROC: 5A1D70Z Performance of Urinary Filtration, Intermittent, Less than 6 Hours Per Day (ICD-10-PCS; 2022-11-20)
PROC: 30233K1 Transfusion of Nonautologous Frozen Plasma into Peripheral Vein, Percutaneous Approach (ICD-10-PCS; 2022-11-21)
PROC: 5A1D70Z Performance of Urinary Filtration, Intermittent, Less than 6 Hours Per Day (ICD-10-PCS; 2022-11-21)
PROC: 30233N1 Transfusion of Nonautologous Red Blood Cells into Peripheral Vein, Percutaneous Approach (ICD-10-PCS; 2022-11-22)
PROC: 5A1D70Z Performance of Urinary Filtration, Intermittent, Less than 6 Hours Per Day (ICD-10-PCS; 2022-11-22)
PROC: 02HV33Z Insertion of Infusion Device into Superior Vena Cava, Percutaneous Approach (ICD-10-PCS; 2022-11-24)
PROC: B548ZZA Ultrasonography of Superior Vena Cava, Guidance (ICD-10-PCS; 2022-11-24)
PROC: 5A09457 Assistance with Respiratory Ventilation, 24-96 Consecutive Hours, Continuous Positive Airway Pressure (ICD-10-PCS; 2022-12-03)
DX: A41.51 Sepsis due to Escherichia coli [E. coli] (principal); K72.00 Acute and subacute hepatic failure without coma; K76.7 Hepatorenal syndrome; N17.0 Acute kidney failure with tubular necrosis; J96.01 Acute respiratory failure with hypoxia; J96.02 Acute respiratory failure with hypercapnia; J15.212 Pneumonia due to Methicillin resistant Staphylococcus aureus; E43 Unspecified severe protein-calorie malnutrition; K72.10 Chronic hepatic failure without coma; E88.09 Other disorders of plasma-protein metabolism, not elsewhere classified; N30.90 Cystitis, unspecified without hematuria; R18.8 Other ascites; E87.6 Hypokalemia; K76.82 Hepatic encephalopathy; E66.01 Morbid (severe) obesity due to excess calories; I12.9 Hypertensive chronic kidney disease with stage 1 through stage 4 chronic kidney disease, or unspecified chronic kidney disease; K74.60 Unspecified cirrhosis of liver; K75.81 Nonalcoholic steatohepatitis (NASH); N18.9 Chronic kidney disease, unspecified; F15.10 Other stimulant abuse, uncomplicated; R04.0 Epistaxis; Z68.39 Body mass index [BMI] 39.0-39.9, adult; Z79.899 Other long term (current) drug therapy; Z98.84 Bariatric surgery status
CPT/HCPCS: 31500; 36415; 36569; 36600; 70450; 71045; 74176; 74181; 76705; 80048; 80053; 80061; 80074; 80202; 80307; 81001; 82105; 82140; 82390; 82550; 82570; 82728; 82805; 82962; 83036; 83540; 83550; 83605; 83735; 83880; 83930; 84100; 84132; 84156; 84300; 84443; 84478; 84484; 85007; 85025; 85027; 85610; 85730; 86038; 86850; 86900; 86901; 86920; 87040; 87070; 87077; 87081; 87086; 87088; 87186; 87205; 87426; 90935; 93306; 94002; 94003; 94640; 94660; 96365; 96375; 97110; 97116; 97163; 97530; 99291; C9113; G0378; J0696; J0712; J1642; J1815; J1956; J2001; J2185; J2250; J2405; J3430; J3480; J7060; P9047

== ENCOUNTER 2023-02-13 20:26 | Inpatient (IN) | payer MEDICAID ==
[~2023-02-13] VITALS: Ht 160 cm; Wt 101.8 kg
[2023-02-13 21:13] LABS: Basophils # (auto) 0.1 10 ^3/uL (0-0.2); Eosinophils # (auto) 0.2 10 ^3/uL (0-0.8); Eosinophils % (auto) 1.5 % (0.0-7.0); Lymphocytes # (auto) 1.8 10 ^3/uL (0.4-5.4); Mean Corpuscular Hemoglobin 31.6 pg (28.0-32.0); Mean Corpuscular Hgb Conc. 33.2 g/dL (32.0-36.0); Mean Corpuscular Volume 95.2 fL (80.0-100.0); Monocytes % (auto) 8.4 % (0.0-12.0); Neutrophils # (auto) 8.4 10 ^3/uL (1.6-8.6); Neutrophils % (auto) 73.1 % (37.0-80.0); Red Blood Cells 2.52 10^6/uL (4.0-5.20); Red Cell Distribution Width 22.8 % (11.8-14.3); White Blood Cell 11.5 10^3/uL (4.4-10.8)
[2023-02-13 21:29] LABS: Alanine Aminotransferase 18 U/L (7-40); Albumin 3.1 g/dL (3.2-4.8); Alkaline Phosphatase 137 U/L (46-116); Anion Gap 13 (5-15); Aspartate Aminotransferase 57 U/L (13-40); BUN/Creatinine Ratio 6.1 (10.0-20.0); Bilirubin, Total 7.9 mg/dL (0.2-1.0); Blood Urea Nitrogen 19 mg/dL (9-23); Calcium 9.3 mg/dL (8.5-10.1); Carbon Dioxide 20 mmol/L (20-30); Chloride 109 mmol/L (98-107); Glucose 110 mg/dL (74-106); Potassium 3.2 mmol/L (3.5-5.1); Sodium 142 mmol/L (136-145); Total Protein 6.1 g/dL (5.7-8.2)
[2023-02-13 21:51] LABS: INR 2.08 (0.9-1.15); Prothrombin Time 20.9 sec (9.3-11.8)
[2023-02-13] MEDS: LACTULOSE 20Gm/30ML SOLN PO ONE (22:00)
[2023-02-13 23:58] VITALS: PULSE 116; RESP 20; O2SAT 100
[2023-02-14] VITALS (41 sets, daily range): BP systolic 79–147; BP diastolic 39–77; PULSE 16–113; RESP 14–18; TEMP 95.4–98.1; O2SAT 95–100
[2023-02-14] MEDS: LACTULOSE 20Gm/30ML SOLN PO ONE (00:08)
[2023-02-14 01:45] LABS: Basophils # (auto) 0.1 10 ^3/uL (0-0.2); Eosinophils # (auto) 0.1 10 ^3/uL (0-0.8); Hematocrit 19.9 % (36.0-46.0); Lymphocytes # (auto) 1.7 10 ^3/uL (0.4-5.4); Monocytes # (auto) 1.3 10 ^3/uL (0-1.3); Monocytes % (auto) 10.5 % (0.0-12.0); Neutrophils # (auto) 9.1 10 ^3/uL (1.6-8.6); Red Blood Cells 2.07 10^6/uL (4.0-5.20)
[2023-02-14 01:46] LABS: Basophils % (auto) 0.7 % (0.0-2.0); Eosinophils % (auto) 0.8 % (0.0-7.0); Lymphocytes % (auto) 13.7 % (10.0-50.0); Mean Corpuscular Hemoglobin 31.8 pg (28.0-32.0); Mean Corpuscular Hgb Conc. 33.1 g/dL (32.0-36.0); Neutrophils % (auto) 74.3 % (37.0-80.0); Nucleated Red Blood Cells % 0.1 %; White Blood Cell 12.3 10^3/uL (4.4-10.8)
[2023-02-14 02:37] LABS: Red Cell Distribution Width 23.5 % (11.8-14.3)
[2023-02-14 02:38] LABS: Hemoglobin 6.6 g/dL (12.2-16.2)
[2023-02-14 02:39] LABS: COVID19 ANTIGEN SOFIA FIA NEGATIVE (NEGATIVE)
[2023-02-14] MEDS ORDERED: ETOMIDATE (2MG/ML) 20ML VIAL IV ONE (02:45)
[2023-02-14] MEDS ORDERED: ROCURONIUM 10MG/ML 10ML VIAL IV ONE (02:45)
[2023-02-14] MEDS: MIDAZOLAM DRIP 50 mg/50mL 50 ML IV SCH ×2 (03:51→18:40)
[2023-02-14] MEDS: fentaNYL Drip 2500mCg/250mlNS 250 ML IV SCH (03:57)
[2023-02-14 04:08] LABS: Urine Bacteria NONE SEEN /hpf (None Seen); Urine Blood Negative /uL (Negative); Urine Clarity HAZY (Clear); Urine Color Yellow (Yellow); Urine Hyaline Cast FEW /lpf (0 - 2); Urine Mucus FEW (None Seen); Urine Protein, UAD 1+ (Negative); Urine Urobilinogen Normal (Negative); Urine WBC 26 /hpf (0 - 5); Urine pH 5.5 (5.0-8.0)
[2023-02-14] MEDS ORDERED: PANTOPRAZOLE 80 MG in SODIUM CHL 0.9% 100 ML IV ONE (04:30)
[2023-02-14] MEDS ORDERED: PANTOPRAZOLE 40mg/50ML NS AE 50 ML IV ONE (04:30)
[2023-02-14] MEDS ORDERED: OCTREOTIDE ACETATE 100 MCG in SODIUM CHL 0.9% 50 ML IV ONE (04:30)
[2023-02-14] MEDS ORDERED: PANTOPRAZOLE 40 MG/10 ML VIAL INJ IV ONE (04:34)
[2023-02-14] MEDS ORDERED: OCTREOTIDE ACETATE 100 MCG/ML VL ONE (04:35)
[2023-02-14 05:05] LABS: Base Excess -8.8 mmol/L (-2.0-2.0)
[2023-02-14] MEDS ORDERED: OCTREOTIDE ACETATE 500 MCG/ML VL ONE (05:25)
[2023-02-14] MEDS: OCTREOTIDE ACETATE 500 MCG in SODIUM CHL 0.9% 99 ML IV SCH ×3 (05:29→20:37)
[2023-02-14] MEDS ORDERED: DEXTROSE (50%) 50ML SYRG IV PRN (05:45)
[2023-02-14] MEDS ORDERED: ONDANSETRON HCL 4 MG/2 ML VIAL IV PRN (05:45)
[2023-02-14] MEDS: PANTOPRAZOLE 40mg/50ML NS AE 50 ML IV SCH ×5 (06:22→23:48)
[2023-02-14] MEDS: SODIUM CHLORIDE 0.9% 1,000 ML IV SCH ×2 (06:23→20:43)
[2023-02-14] MEDS: ACCU-CHEK COMFORT CURVE STRIP VI SCH ×3 (06:41→18:31)
[2023-02-14] MEDS: InsuLIN REG 1unit/0.01ml Soln (100units/ml) SC SCH ×3 (06:41→18:31)
[2023-02-14] MEDS: cefTRIAXone 1GM/50ML D5W 50 ML IV SCH (06:53)
[2023-02-14] MEDS ORDERED: CLINDAMYCIN 600MG IV 50 ML IV SCH (07:30)
[2023-02-14] MEDS ORDERED: MORPHINE SULFATE INJ 2 MG/ml SYRG IV PRN (07:30)
[2023-02-14] MEDS ORDERED: NITROGLYCERIN 0.4 MG SL TAB SL PRN (07:30)
[2023-02-14] MEDS: LACTULOSE 10g/15ml SOLN 473ML PR SCH (11:35)
[2023-02-14 14:59] LABS: Basophils # (auto) 0.1 10 ^3/uL (0-0.2); Eosinophils # (auto) 0.1 10 ^3/uL (0-0.8); Hemoglobin 8.2 g/dL (12.2-16.2)
[2023-02-14 15:00] LABS: Basophils % (auto) 0.4 % (0.0-2.0); Eosinophils % (auto) 0.5 % (0.0-7.0); Hematocrit 24.1 % (36.0-46.0); Lymphocytes # (auto) 2.4 10 ^3/uL (0.4-5.4); Lymphocytes % (auto) 13.7 % (10.0-50.0); Mean Corpuscular Hemoglobin 32.2 pg (28.0-32.0); Mean Corpuscular Hgb Conc. 34.2 g/dL (32.0-36.0); Mean Corpuscular Volume 94.2 fL (80.0-100.0); Neutrophils # (auto) 13.7 10 ^3/uL (1.6-8.6); Neutrophils % (auto) 79.4 % (37.0-80.0); Nucleated Red Blood Cells % 0.1 %; Red Blood Cells 2.56 10^6/uL (4.0-5.20); White Blood Cell 17.2 10^3/uL (4.4-10.8)
[2023-02-14 15:13] LABS: INR 1.98 (0.9-1.15); Partial Thromboplastin Time 51.8 SEC (24.5-34.5); Prothrombin Time 19.9 sec (9.3-11.8)
[2023-02-14 15:15] LABS: Alanine Aminotransferase 15 U/L (7-40); Albumin 2.5 g/dL (3.2-4.8); Alkaline Phosphatase 111 U/L (46-116); Anion Gap 11 (5-15); Aspartate Aminotransferase 57 U/L (13-40); BUN/Creatinine Ratio 6.4 (10.0-20.0); Bilirubin, Direct 6.4 mg/dL (<0.3); Bilirubin, Total 7.9 mg/dL (0.2-1.0); Blood Urea Nitrogen 21 mg/dL (9-23); Calcium 8.6 mg/dL (8.5-10.1); Carbon Dioxide 20 mmol/L (20-30); Chloride 111 mmol/L (98-107); Glucose 100 mg/dL (74-106); Potassium 3.9 mmol/L (3.5-5.1); Sodium 142 mmol/L (136-145); Total Protein 4.9 g/dL (5.7-8.2)
[2023-02-14 15:43] LABS: Magnesium 1.7 mg/dL (1.6-2.6)
[2023-02-14] MEDS: NOREPINEPHRINE 8 MG/250ML KIT 250 ML IV SCH (18:41)
[2023-02-14 18:43] LABS: Creatinine, Urine 113.88 mg/dL (30.0-125.0)
[2023-02-14 18:45] LABS: Protein, Urine 90.7 mg/dL (0.0-11.9); Urine Protein/Creatinine Ratio 0.8
[2023-02-15] VITALS (76 sets, daily range): BP systolic 85–123; BP diastolic 34–64; PULSE 70–114; RESP 14–17; TEMP 98.1–98.8; O2SAT 92–100
[2023-02-15] MEDS: ACCU-CHEK COMFORT CURVE STRIP VI SCH ×4 (00:15→18:13)
[2023-02-15] MEDS: fentaNYL Drip 2500mCg/250mlNS 250 ML IV SCH (01:11)
[2023-02-15] MEDS: PANTOPRAZOLE 40mg/50ML NS AE 50 ML IV SCH ×4 (04:55→21:52)
[2023-02-15] MEDS: InsuLIN REG 1unit/0.01ml Soln (100units/ml) SC SCH ×4 (05:31→18:00)
[2023-02-15] MEDS: OCTREOTIDE ACETATE 500 MCG in SODIUM CHL 0.9% 99 ML IV SCH ×2 (05:49→19:57)
[2023-02-15 06:40] LABS: Basophils # (auto) 0.2 10 ^3/uL (0-0.2); Eosinophils # (auto) 0.2 10 ^3/uL (0-0.8); Hemoglobin 8.1 g/dL (12.2-16.2); Mean Corpuscular Volume 94.2 fL (80.0-100.0); White Blood Cell 18.7 10^3/uL (4.4-10.8)
[2023-02-15 06:41] LABS: Basophils % (auto) 1.2 % (0.0-2.0); Eosinophils % (auto) 0.9 % (0.0-7.0); Hematocrit 24.4 % (36.0-46.0); Lymphocytes # (auto) 3.3 10 ^3/uL (0.4-5.4); Lymphocytes % (auto) 17.7 % (10.0-50.0); Mean Corpuscular Hemoglobin 31.3 pg (28.0-32.0); Mean Corpuscular Hgb Conc. 33.2 g/dL (32.0-36.0); Monocytes # (auto) 1.3 10 ^3/uL (0-1.3); Monocytes % (auto) 6.8 % (0.0-12.0); Neutrophils # (auto) 13.7 10 ^3/uL (1.6-8.6); Neutrophils % (auto) 73.4 % (37.0-80.0); Nucleated Red Blood Cells % 0.2 %; Red Blood Cells 2.59 10^6/uL (4.0-5.20); Red Cell Distribution Width 18.9 % (11.8-14.3)
[2023-02-15 06:48] LABS: Alanine Aminotransferase 15 U/L (7-40); Albumin 2.5 g/dL (3.2-4.8); Alkaline Phosphatase 137 U/L (46-116); Anion Gap 13 (5-15); Aspartate Aminotransferase 62 U/L (13-40); Bilirubin, Total 9.9 mg/dL (0.2-1.0); Blood Urea Nitrogen 21 mg/dL (9-23); Calcium 8.1 mg/dL (8.7-10.4); Carbon Dioxide 18 mmol/L (20-30); Chloride 111 mmol/L (98-107); Potassium 3.7 mmol/L (3.5-5.1); Sodium 142 mmol/L (136-145)
[2023-02-15 06:58] LABS: Glucose 110 mg/dL (74-106)
[2023-02-15 07:00] LABS: Base Excess -9.6 mmol/L (-2.0-2.0)
[2023-02-15 07:05] LABS: BUN/Creatinine Ratio 6.3 (10.0-20.0)
[2023-02-15] MEDS: cefTRIAXone 1GM/50ML D5W 50 ML IV SCH (08:46)
[2023-02-15] MEDS: NOREPINEPHRINE 8 MG/250ML KIT 250 ML IV SCH (10:53)
[2023-02-15] MEDS: SODIUM CHLORIDE 0.9% 1,000 ML IV SCH (12:56)
[2023-02-15] MEDS: MIDAZOLAM DRIP 50 mg/50mL 50 ML IV SCH (15:40)
[2023-02-15] MEDS: SODIUM BICARBONATE 50ML VIAL 75 ML in D5W 5% 1,000 ML IV SCH (18:52)
[2023-02-15] MEDS: MEROPENEM 500MG IVPB 50 ML IV SCH (22:14)
[2023-02-15] MEDS: NYSTATIN TOPICAL POWDER 15GM TOP SCH (22:33)
[2023-02-16] VITALS (107 sets, daily range): BP systolic 80–120; BP diastolic 27–63; PULSE 65–118; RESP 13–25; TEMP 97–99.7; O2SAT 88–100
[2023-02-16 02:14] LABS: Basophils # (auto) 0.2 10 ^3/uL (0-0.2); Hemoglobin 7.5 g/dL (12.2-16.2); Lymphocytes # (auto) 3.5 10 ^3/uL (0.4-5.4); Mean Corpuscular Volume 94.2 fL (80.0-100.0)
[2023-02-16 02:16] LABS: Eosinophils # (auto) 0.3 10 ^3/uL (0-0.8); Eosinophils % (auto) 1.2 % (0.0-7.0); Hematocrit 22.8 % (36.0-46.0); Mean Corpuscular Hemoglobin 31.2 pg (28.0-32.0); Mean Corpuscular Hgb Conc. 33.1 g/dL (32.0-36.0); Monocytes # (auto) 1.2 10 ^3/uL (0-1.3); Monocytes % (auto) 5.7 % (0.0-12.0); Neutrophils # (auto) 16.7 10 ^3/uL (1.6-8.6); Neutrophils % (auto) 76.1 % (37.0-80.0); Red Blood Cells 2.42 10^6/uL (4.0-5.20); Red Cell Distribution Width 19.3 % (11.8-14.3); White Blood Cell 21.9 10^3/uL (4.4-10.8)
[2023-02-16 02:33] LABS: Alanine Aminotransferase 18 U/L (7-40); Albumin 2.4 g/dL (3.2-4.8); Alkaline Phosphatase 140 U/L (46-116); Anion Gap 11 (5-15); Aspartate Aminotransferase 70 U/L (13-40); Bilirubin, Total 9.4 mg/dL (0.2-1.0); Blood Urea Nitrogen 25 mg/dL (9-23); Calcium 8.2 mg/dL (8.5-10.1); Carbon Dioxide 18 mmol/L (20-30); Chloride 111 mmol/L (98-107); Glucose 142 mg/dL (74-106); Phosphorus 5.6 mg/dL (2.4-5.1); Potassium 3.7 mmol/L (3.5-5.1); Sodium 140 mmol/L (136-145); Total Protein 4.8 g/dL (5.7-8.2)
[2023-02-16] MEDS: PANTOPRAZOLE 40mg/50ML NS AE 50 ML IV SCH ×5 (02:45→21:00)
[2023-02-16 02:57] LABS: BUN/Creatinine Ratio 6.5 (10.0-20.0)
[2023-02-16] MEDS: fentaNYL Drip 2500mCg/250mlNS 250 ML IV SCH (03:15)
[2023-02-16] MEDS: SODIUM BICARBONATE 50ML VIAL 75 ML in D5W 5% 1,000 ML IV SCH ×2 (04:00→14:32)
[2023-02-16] MEDS: OCTREOTIDE ACETATE 500 MCG in SODIUM CHL 0.9% 99 ML IV SCH ×2 (05:19→17:02)
[2023-02-16] MEDS: ACCU-CHEK COMFORT CURVE STRIP VI SCH ×4 (05:20→18:13)
[2023-02-16] MEDS: InsuLIN REG 1unit/0.01ml Soln (100units/ml) SC SCH ×4 (05:31→18:00)
[2023-02-16] MEDS: LACTULOSE 20Gm/30ML SOLN PO SCH ×4 (05:40→22:00)
[2023-02-16 08:22] LABS: Base Excess -7.5 mmol/L (-2.0-2.0)
[2023-02-16 10:24] LABS: Hepatitis B Core Total AB Negative (Negative)
[2023-02-16] MEDS: MEROPENEM 500MG IVPB 50 ML IV SCH ×2 (10:48→22:47)
[2023-02-16] MEDS: NOREPINEPHRINE 8 MG/250ML KIT 250 ML IV SCH (10:56)
[2023-02-16 13:37] LABS: Magnesium 1.5 mg/dL (1.6-2.6)
[2023-02-16 14:58] LABS: Hepatitis B Surface Antibody Positive (Negative)
[2023-02-16 14:59] LABS: Hepatitis A Total Antibody Positive (Negative); Hepatitis B Surface Antigen Negative (Negative); Hepatitis C Antibody Negative (Negative)
[2023-02-16] MEDS ORDERED: BUMETANIDE 2.5mg/10ml (0.25 mg/ml) INJ IV ONE (15:00)
[2023-02-16] MEDS ORDERED: TPN PER PHARMACY 0 ML IV SCH (15:45)
[2023-02-16] MEDS ORDERED: SODIUM BICARBONATE 8.4 % INJ 50ML VIAL IV ONE (16:00)
[2023-02-16] MEDS: MAGNESIUM SULFATE 1GM/100ML 100 ML IV SCH ×3 (17:00→22:15)
[2023-02-16] MEDS: ALBUMIN 25% 50 ML IV SCH (17:00)
[2023-02-16] MEDS: NYSTATIN TOPICAL POWDER 15GM TOP SCH ×2 (17:02→22:47)
[2023-02-16] MEDS: NOREPINEPHRINE BITARTRATE 32 MG in SODIUM CHL 0.9% 218 ML IV SCH (18:13)
[2023-02-16] MEDS: VASOPRESSIN 20 UNITS in SODIUM CHL 0.9% 99 ML IV SCH (18:30)
[2023-02-16 18:42] LABS: Chloride 107 mmol/L (98-107); Potassium 3.5 mmol/L (3.5-5.1); Sodium 140 mmol/L (136-145)
[2023-02-16 18:43] LABS: Anion Gap 14 (5-15); Carbon Dioxide 19 mmol/L (20-30)
[2023-02-16 18:48] LABS: Blood Urea Nitrogen 24 mg/dL (9-23); Glucose 103 mg/dL (74-106)
[2023-02-16 19:13] LABS: BUN/Creatinine Ratio 5.9 (10.0-20.0)
[2023-02-16] MEDS ORDERED: AMINO ACID INFUSION IN D10W 1,000 ML IV NR (20:00)
[2023-02-16] MEDS ORDERED: MAGNESIUM SULFATE 1GM/100ML 100 ML IV ONE (21:33)
[2023-02-16] MEDS ORDERED: LACTULOSE 20Gm/30ML SOLN ONE (22:45)
[2023-02-17] VITALS (117 sets, daily range): BP systolic 90–136; BP diastolic 33–71; PULSE 78–116; RESP 9–23; TEMP 96.1–99.1; O2SAT 90–100
[2023-02-17] MEDS ORDERED: LACTULOSE 10g/15ml SOLN 473ML PR SCH
[2023-02-17] MEDS: ACCU-CHEK COMFORT CURVE STRIP VI SCH ×4 (00:07→17:18)
[2023-02-17] MEDS: ALBUMIN 25% 50 ML IV SCH ×2 (00:09→08:10)
[2023-02-17] MEDS: PANTOPRAZOLE 40mg/50ML NS AE 50 ML IV SCH ×6 (00:42→22:56)
[2023-02-17] MEDS: LACTULOSE 20Gm/30ML SOLN PO SCH ×2 (02:00→06:08)
[2023-02-17] MEDS: OCTREOTIDE ACETATE 500 MCG in SODIUM CHL 0.9% 99 ML IV SCH ×3 (02:30→22:56)
[2023-02-17] MEDS: MIDAZOLAM DRIP 50 mg/50mL 50 ML IV SCH (03:15)
[2023-02-17 04:20] LABS: Hematocrit 20.8 % (36.0-46.0); Mean Corpuscular Hgb Conc. 33.7 g/dL (32.0-36.0); Red Blood Cells 2.19 10^6/uL (4.0-5.20); Red Cell Distribution Width 19.7 % (11.8-14.3); White Blood Cell 27.5 10^3/uL (4.4-10.8)
[2023-02-17 04:37] LABS: INR 2.41 (0.9-1.15)
[2023-02-17 04:38] LABS: Alanine Aminotransferase 18 U/L (7-40); Albumin 2.5 g/dL (3.2-4.8); Alkaline Phosphatase 131 U/L (46-116); Anion Gap 11 (5-15); Aspartate Aminotransferase 66 U/L (13-40); Calcium 8.1 mg/dL (8.5-10.1); Carbon Dioxide 19 mmol/L (20-30); Chloride 108 mmol/L (98-107); Glucose 133 mg/dL (74-106); Potassium 3.4 mmol/L (3.5-5.1); Sodium 138 mmol/L (136-145)
[2023-02-17 04:39] LABS: Bilirubin, Total 10.8 mg/dL (0.2-1.0); Partial Thromboplastin Time 72.3 SEC (24.5-34.5); Phosphorus 6.1 mg/dL (2.4-5.1); Total Protein 4.9 g/dL (5.7-8.2)
[2023-02-17 04:40] LABS: Prothrombin Time 23.9 sec (9.3-11.8)
[2023-02-17 04:42] LABS: Triglycerides 65 mg/dL (< 150)
[2023-02-17 04:52] LABS: Basophils % (manual) 0 (0.0-2.0); Blast Cells 0; Eosinophils % (manual) 0 (0-7); Metamyelocytes % 0; Myelocytes % 0; Promyelocytes % 0; Reactive Lymphocytes 0
[2023-02-17] MEDS: VASOPRESSIN 20 UNITS in SODIUM CHL 0.9% 99 ML IV SCH ×2 (05:37→12:32)
[2023-02-17] MEDS: fentaNYL Drip 2500mCg/250mlNS 250 ML IV SCH (05:51)
[2023-02-17] MEDS: InsuLIN REG 1unit/0.01ml Soln (100units/ml) SC SCH ×4 (05:58→17:18)
[2023-02-17 07:04] LABS: Magnesium 2.1 mg/dL (1.6-2.6)
[2023-02-17 07:30] LABS: Band Neutrophils % (manual) 3; Lymphocytes % (manual) 4 (10.0-50.0); Monocytes % (manual) 8 (0-12); Platelet Estimate Decreased
[2023-02-17 07:42] LABS: BUN/Creatinine Ratio 6.3 (10.0-20.0); Blood Urea Nitrogen 27 mg/dL (9-23)
[2023-02-17] MEDS: NYSTATIN TOPICAL POWDER 15GM TOP SCH ×2 (08:10→22:55)
[2023-02-17] MEDS: MEROPENEM 500MG IVPB 50 ML IV SCH ×2 (08:10→22:57)
[2023-02-17 09:30] LABS: Base Excess -8.1 mmol/L (-2.0-2.0)
[2023-02-17] MEDS ORDERED: POTASSIUM CHL 20MEQ/100ML 100 ML IV ONE (11:15)
[2023-02-17] MEDS ORDERED: DEXTROSE (50%) 50ML SYRG IV SCH (12:00)
[2023-02-17] MEDS ORDERED: SODIUM BICARBONATE 8.4 % INJ 50ML VIAL IV ONE ×2 (12:15→17:00)
[2023-02-17] MEDS: NOREPINEPHRINE BITARTRATE 32 MG in SODIUM CHL 0.9% 218 ML IV SCH (12:31)
[2023-02-17] MEDS: LACTULOSE 10g/15ml SOLN 473ML PR SCH ×2 (12:31→17:18)
[2023-02-17] MEDS: FUROSEMIDE INJECTION 100 MG in SODIUM CHL 0.9% 100 ML IV SCH ×3 (13:29→19:28)
[2023-02-17 14:45] LABS: Base Excess -4.2 mmol/L (-2.0-2.0)
[2023-02-17] MEDS ORDERED: LIDOCAINE 1% (LOCAL ANESTH.) PF 5ml SDV ID ONE (14:45)
[2023-02-17] MEDS ORDERED: SODIUM BICARBONATE 8.4 % INJ 50ML VIAL IV PRN (17:00)
[2023-02-17] MEDS ORDERED: FUROSEMIDE INJECTION 100 MG in D5W 5% 100 ML IV SCH (17:45)
[2023-02-17 18:38] LABS: Hematocrit 22.4 % (36.0-46.0); Hemoglobin 7.7 g/dL (12.2-16.2)
[2023-02-17] MEDS ORDERED: TPN PER PHARMACY IV NR ×9 (20:00)
[2023-02-17] MEDS ORDERED: phytonadione 10 MG in SODIUM CHL 0.9% 50 ML IV ONE (21:45)
[2023-02-17] MEDS: SODIUM CHLOR 0.9% PF (SALINE LOCK) 10ML VIAL/SYR IV SCH (22:00)
[2023-02-17] MEDS ORDERED: phytonadione 1 ML ONE (23:05)
[2023-02-18] VITALS (84 sets, daily range): BP systolic 77–146; BP diastolic 28–67; PULSE 78–113; RESP 12–26; TEMP 97.9–99.5; O2SAT 88–100
[2023-02-18] MEDS: ACCU-CHEK COMFORT CURVE STRIP VI SCH ×5 (00:13→23:46)
[2023-02-18] MEDS: FUROSEMIDE INJECTION 100 MG in SODIUM CHL 0.9% 100 ML IV SCH ×4 (01:11→14:00)
[2023-02-18] MEDS: PANTOPRAZOLE 40mg/50ML NS AE 50 ML IV SCH ×3 (02:00→19:52)
[2023-02-18] MEDS: MIDAZOLAM DRIP 50 mg/50mL 50 ML IV SCH (03:15)
[2023-02-18] MEDS: VASOPRESSIN 20 UNITS in SODIUM CHL 0.9% 99 ML IV SCH (03:51)
[2023-02-18 04:41] LABS: Basophils # (auto) 0.2 10 ^3/uL (0-0.2); Eosinophils # (auto) 0.3 10 ^3/uL (0-0.8); Hemoglobin 7.8 g/dL (12.2-16.2); Monocytes # (auto) 0.9 10 ^3/uL (0-1.3)
[2023-02-18 04:44] LABS: INR 2.11 (0.9-1.15); Prothrombin Time 21.1 sec (9.3-11.8)
[2023-02-18 04:45] LABS: Basophils % (auto) 1.2 % (0.0-2.0); Eosinophils % (auto) 1.6 % (0.0-7.0); Hematocrit 22.7 % (36.0-46.0); Lymphocytes # (auto) 2.3 10 ^3/uL (0.4-5.4); Lymphocytes % (auto) 12.4 % (10.0-50.0); Mean Corpuscular Hemoglobin 31.4 pg (28.0-32.0); Mean Corpuscular Hgb Conc. 34.3 g/dL (32.0-36.0); Mean Corpuscular Volume 91.4 fL (80.0-100.0); Monocytes % (auto) 5.1 % (0.0-12.0); Neutrophils # (auto) 14.7 10 ^3/uL (1.6-8.6); Neutrophils % (auto) 79.7 % (37.0-80.0); Red Blood Cells 2.49 10^6/uL (4.0-5.20); Red Cell Distribution Width 19.3 % (11.8-14.3); White Blood Cell 18.5 10^3/uL (4.4-10.8)
[2023-02-18 04:54] LABS: Alanine Aminotransferase 13 U/L (7-40); Albumin 2.4 g/dL (3.2-4.8); Alkaline Phosphatase 123 U/L (46-116); Anion Gap 11 (5-15); Aspartate Aminotransferase 52 U/L (13-40); Blood Urea Nitrogen 26 mg/dL (9-23); Carbon Dioxide 23 mmol/L (20-30); Chloride 107 mmol/L (98-107); Glucose 155 mg/dL (74-106); Potassium 3.4 mmol/L (3.5-5.1); Sodium 141 mmol/L (136-145)
[2023-02-18 04:55] LABS: Bilirubin, Total 11.4 mg/dL (0.2-1.0); Phosphorus 4.5 mg/dL (2.4-5.1); Total Protein 4.7 g/dL (5.7-8.2)
[2023-02-18] MEDS: fentaNYL Drip 2500mCg/250mlNS 250 ML IV SCH (05:20)
[2023-02-18] MEDS: LACTULOSE 10g/15ml SOLN 473ML PR SCH ×5 (06:00→23:45)
[2023-02-18] MEDS: InsuLIN REG 1unit/0.01ml Soln (100units/ml) SC SCH ×5 (06:08→23:46)
[2023-02-18 07:25] LABS: Base Excess -2.8 mmol/L (-2.0-2.0)
[2023-02-18] MEDS: OCTREOTIDE ACETATE 500 MCG in SODIUM CHL 0.9% 99 ML IV SCH ×2 (08:44→19:03)
[2023-02-18] MEDS ORDERED: POTASSIUM CHL 20MEQ/100ML 100 ML IV ONE (09:30)
[2023-02-18] MEDS: MEROPENEM 500MG IVPB 50 ML IV SCH ×2 (11:06→21:45)
[2023-02-18] MEDS: SODIUM CHLOR 0.9% PF (SALINE LOCK) 10ML VIAL/SYR IV SCH ×2 (11:06→21:46)
[2023-02-18] MEDS: NYSTATIN TOPICAL POWDER 15GM TOP SCH ×2 (11:06→21:46)
[2023-02-18] MEDS ORDERED: SODIUM CHL 0.9% 1000 ML BAG XX ONE (13:15)
[2023-02-18] MEDS ORDERED: ALBUMIN 25% 100 ML IV PRN ×2 (13:15→16:30)
[2023-02-18] MEDS: NOREPINEPHRINE BITARTRATE 32 MG in SODIUM CHL 0.9% 218 ML IV SCH (13:31)
[2023-02-18 15:47] LABS: % Iron Saturation 45.2 % (15-50)
[2023-02-18] MEDS ORDERED: ALBUMIN 25% 100 ML IV ONE (16:24)
[2023-02-18] MEDS ORDERED: HEPARIN SODIUM (PORCINE) 5000 UNITS/ML 1ML VIAL IV ONE (18:30)
[2023-02-18] MEDS ORDERED: TPN PER PHARMACY IV NR ×8 (20:00)
[2023-02-18] MEDS ORDERED: EPOETIN ALFA-EPBX 10,000 UNIT/1ML VIAL SC ONE (21:00)
[2023-02-19] VITALS (106 sets, daily range): BP systolic 80–150; BP diastolic 34–72; PULSE 75–101; RESP 15–21; TEMP 98.4–99.1; O2SAT 91–100
[2023-02-19] MEDS: PANTOPRAZOLE 40mg/50ML NS AE 50 ML IV SCH ×5 (01:46→20:59)
[2023-02-19] MEDS: MIDAZOLAM DRIP 50 mg/50mL 50 ML IV SCH (03:15)
[2023-02-19 04:18] LABS: Albumin 2.7 g/dL (3.2-4.8); Alkaline Phosphatase 113 U/L (46-116); Anion Gap 8 (5-15); Aspartate Aminotransferase 43 U/L (13-40); Bilirubin, Total 10.4 mg/dL (0.2-1.0); Blood Urea Nitrogen 17 mg/dL (9-23); Calcium 8.4 mg/dL (8.7-10.4); Carbon Dioxide 26 mmol/L (20-30); Chloride 107 mmol/L (98-107); Glucose 170 mg/dL (74-106); Phosphorus 1.8 mg/dL (2.4-5.1); Potassium 3.5 mmol/L (3.5-5.1); Sodium 141 mmol/L (136-145); Total Protein 4.9 g/dL (5.7-8.2)
[2023-02-19 04:42] LABS: Alanine Aminotransferase 9 U/L (7-40)
[2023-02-19 04:54] LABS: BUN/Creatinine Ratio 5.3 (10.0-20.0)
[2023-02-19] MEDS: LACTULOSE 10g/15ml SOLN 473ML PR SCH ×3 (05:28→17:32)
[2023-02-19] MEDS: OCTREOTIDE ACETATE 500 MCG in SODIUM CHL 0.9% 99 ML IV SCH ×2 (05:31→16:21)
[2023-02-19] MEDS: fentaNYL Drip 2500mCg/250mlNS 250 ML IV SCH (05:33)
[2023-02-19] MEDS: ACCU-CHEK COMFORT CURVE STRIP VI SCH ×3 (05:44→17:32)
[2023-02-19] MEDS: InsuLIN REG 1unit/0.01ml Soln (100units/ml) SC SCH ×3 (05:45→17:34)
[2023-02-19] MEDS ORDERED: ALBUMIN 25% 100 ML IV PRN (06:45)
[2023-02-19] MEDS ORDERED: SODIUM CHL 0.9% 1000 ML BAG XX ONE (07:00)
[2023-02-19 07:03] LABS: Basophils # (auto) 0.2 10 ^3/uL (0-0.2); Basophils % (auto) 1.1 % (0.0-2.0); Eosinophils # (auto) 0.1 10 ^3/uL (0-0.8); Hemoglobin 7.1 g/dL (12.2-16.2); Monocytes # (auto) 0.8 10 ^3/uL (0-1.3); White Blood Cell 15.1 10^3/uL (4.4-10.8)
[2023-02-19 07:05] LABS: Eosinophils % (auto) 0.7 % (0.0-7.0); Hematocrit 20.5 % (36.0-46.0); Lymphocytes # (auto) 1.9 10 ^3/uL (0.4-5.4); Lymphocytes % (auto) 12.8 % (10.0-50.0); Mean Corpuscular Hemoglobin 32.6 pg (28.0-32.0); Mean Corpuscular Hgb Conc. 34.8 g/dL (32.0-36.0); Mean Corpuscular Volume 93.8 fL (80.0-100.0); Monocytes % (auto) 5.3 % (0.0-12.0); Neutrophils # (auto) 12.1 10 ^3/uL (1.6-8.6); Neutrophils % (auto) 80.1 % (37.0-80.0); Red Blood Cells 2.19 10^6/uL (4.0-5.20); Red Cell Distribution Width 19.5 % (11.8-14.3)
[2023-02-19 08:25] LABS: Base Excess 2.5 mmol/L (-2.0-2.0)
[2023-02-19 09:09] LABS: Platelet Estimate 96
[2023-02-19] MEDS ORDERED: POTASSIUM PHOSPHATE 22 MEQ in SODIUM CHL 0.9% 100 ML IV ONE (11:15)
[2023-02-19] MEDS: NYSTATIN TOPICAL POWDER 15GM TOP SCH ×2 (11:19→21:00)
[2023-02-19] MEDS: SODIUM CHLOR 0.9% PF (SALINE LOCK) 10ML VIAL/SYR IV SCH ×2 (11:19→20:59)
[2023-02-19] MEDS: MEROPENEM 500MG IVPB 50 ML IV SCH ×2 (12:42→20:59)
[2023-02-19] MEDS: VASOPRESSIN 20 UNITS in SODIUM CHL 0.9% 99 ML IV SCH (13:12)
[2023-02-19] MEDS: NOREPINEPHRINE BITARTRATE 32 MG in SODIUM CHL 0.9% 218 ML IV SCH (15:45)
[2023-02-19] MEDS ORDERED: TPN*HIGH CONC* PER PHARMACY IV NR ×8 (20:00)
[2023-02-20] VITALS (108 sets, daily range): BP systolic 85–148; BP diastolic 38–81; PULSE 79–104; RESP 16–29; TEMP 97–99; O2SAT 92–100
[2023-02-20] MEDS: VASOPRESSIN 20 UNITS in SODIUM CHL 0.9% 99 ML IV SCH ×3 (00:19→22:33)
[2023-02-20] MEDS: PANTOPRAZOLE 40mg/50ML NS AE 50 ML IV SCH ×5 (02:00→21:52)
[2023-02-20] MEDS: MIDAZOLAM DRIP 50 mg/50mL 50 ML IV SCH (03:15)
[2023-02-20] MEDS: OCTREOTIDE ACETATE 500 MCG in SODIUM CHL 0.9% 99 ML IV SCH ×3 (03:36→21:52)
[2023-02-20] MEDS: fentaNYL Drip 2500mCg/250mlNS 250 ML IV SCH (03:46)
[2023-02-20 04:08] LABS: Albumin 3.1 g/dL (3.2-4.8); Alkaline Phosphatase 102 U/L (46-116); Anion Gap 4 (5-15); Aspartate Aminotransferase 38 U/L (13-40); Bilirubin, Total 10.7 mg/dL (0.2-1.0); Blood Urea Nitrogen 13 mg/dL (9-23); Calcium 8.6 mg/dL (8.7-10.4); Carbon Dioxide 30 mmol/L (20-30); Chloride 106 mmol/L (98-107); Glucose 148 mg/dL (74-106); Magnesium 1.9 mg/dL (1.6-2.6); Phosphorus 1.3 mg/dL (2.4-5.1); Sodium 140 mmol/L (136-145); Total Protein 5.2 g/dL (5.7-8.2)
[2023-02-20 04:24] LABS: BUN/Creatinine Ratio 4.9 (10.0-20.0)
[2023-02-20 04:29] LABS: Alanine Aminotransferase < 9 U/L (7-40)
[2023-02-20] MEDS: LACTULOSE 10g/15ml SOLN 473ML PR SCH ×4 (05:46→17:59)
[2023-02-20] MEDS: NOREPINEPHRINE BITARTRATE 32 MG in SODIUM CHL 0.9% 218 ML IV SCH (05:59)
[2023-02-20] MEDS: InsuLIN REG 1unit/0.01ml Soln (100units/ml) SC SCH ×4 (06:14→17:57)
[2023-02-20] MEDS: ACCU-CHEK COMFORT CURVE STRIP VI SCH ×4 (06:14→17:57)
[2023-02-20] MEDS ORDERED: SODIUM CHL 0.9% 1000 ML BAG XX ONE (07:00)
[2023-02-20 07:57] LABS: Base Excess 2.6 mmol/L (-2.0-2.0)
[2023-02-20 08:04] LABS: Eosinophils # (auto) 0.1 10 ^3/uL (0-0.8); Lymphocytes # (auto) 1.5 10 ^3/uL (0.4-5.4); Nucleated Red Blood Cells % 0.1 %
[2023-02-20 08:08] LABS: Basophils # (auto) 0.1 10 ^3/uL (0-0.2); Basophils % (auto) 1.1 % (0.0-2.0); Eosinophils % (auto) 1.2 % (0.0-7.0); Hematocrit 20.4 % (36.0-46.0); Mean Corpuscular Hgb Conc. 34.5 g/dL (32.0-36.0); Mean Corpuscular Volume 92.7 fL (80.0-100.0); Monocytes % (auto) 9.7 % (0.0-12.0); Neutrophils # (auto) 7.9 10 ^3/uL (1.6-8.6); Red Cell Distribution Width 19.1 % (11.8-14.3); White Blood Cell 10.6 10^3/uL (4.4-10.8)
[2023-02-20 08:53] LABS: Platelet Estimate Decreased
[2023-02-20 09:28] LABS: Hepatitis B Surface Antigen Negative (Negative)
[2023-02-20 09:48] LABS: Hepatitis A Ab IgM Negative
[2023-02-20 09:49] LABS: Hepatitis B Core IgM Positive; Hepatitis C Antibody Negative (Negative)
[2023-02-20] MEDS: MEROPENEM 500MG IVPB 50 ML IV SCH ×2 (10:29→21:52)
[2023-02-20] MEDS: NYSTATIN TOPICAL POWDER 15GM TOP SCH ×2 (10:29→21:52)
[2023-02-20] MEDS: SODIUM CHLOR 0.9% PF (SALINE LOCK) 10ML VIAL/SYR IV SCH ×2 (10:30→21:52)
[2023-02-20] MEDS ORDERED: SODIUM PHOSPHATES 40 MEQ in D5W 5% 250 ML IV ONE (10:30)
[2023-02-20] MEDS ORDERED: TPN PER PHARMACY IV NR ×8 (20:00)
[2023-02-21] VITALS (108 sets, daily range): BP systolic 74–136; BP diastolic 47–110; PULSE 84–113; RESP 15–19; TEMP 97.2–99.3; O2SAT 85–100
[2023-02-21] MEDS: PANTOPRAZOLE 40mg/50ML NS AE 50 ML IV SCH ×5 (03:13→22:06)
[2023-02-21] MEDS: MIDAZOLAM DRIP 50 mg/50mL 50 ML IV SCH (03:15)
[2023-02-21 04:33] LABS: Basophils # (auto) 0.2 10 ^3/uL (0-0.2); Basophils % (auto) 2.2 % (0.0-2.0); Eosinophils # (auto) 0.1 10 ^3/uL (0-0.8); Eosinophils % (auto) 1.5 % (0.0-7.0); Hemoglobin 7.6 g/dL (12.2-16.2); Lymphocytes # (auto) 1.7 10 ^3/uL (0.4-5.4); Monocytes # (auto) 1.1 10 ^3/uL (0-1.3); Nucleated Red Blood Cells % 0.1 %
[2023-02-21 04:40] LABS: INR 1.75 (0.9-1.15); Prothrombin Time 17.7 sec (9.3-11.8)
[2023-02-21 04:52] LABS: Alkaline Phosphatase 100 U/L (46-116); Anion Gap 5 (5-15); BUN/Creatinine Ratio 5.4 (10.0-20.0); Blood Urea Nitrogen 16 mg/dL (9-23); Calcium 8.6 mg/dL (8.7-10.4); Carbon Dioxide 29 mmol/L (20-30); Chloride 107 mmol/L (98-107); Glucose 142 mg/dL (74-106); Potassium 3.9 mmol/L (3.5-5.1); Sodium 141 mmol/L (136-145)
[2023-02-21 04:53] LABS: Aspartate Aminotransferase 46 U/L (13-40); Bilirubin, Total 9.3 mg/dL (0.2-1.0); Phosphorus 1.7 mg/dL (2.4-5.1); Total Protein 5.1 g/dL (5.7-8.2)
[2023-02-21 04:55] LABS: Hematocrit 22.1 % (36.0-46.0); Lymphocytes % (auto) 20.8 % (10.0-50.0); Mean Corpuscular Hemoglobin 31.8 pg (28.0-32.0); Mean Corpuscular Hgb Conc. 34.4 g/dL (32.0-36.0); Mean Corpuscular Volume 92.3 fL (80.0-100.0); Monocytes % (auto) 13.2 % (0.0-12.0); Neutrophils # (auto) 5.1 10 ^3/uL (1.6-8.6); Neutrophils % (auto) 62.3 % (37.0-80.0); Red Cell Distribution Width 17.8 % (11.8-14.3); White Blood Cell 8.2 10^3/uL (4.4-10.8)
[2023-02-21 05:11] LABS: Alanine Aminotransferase < 9 U/L (7-40)
[2023-02-21] MEDS: fentaNYL Drip 2500mCg/250mlNS 250 ML IV SCH (05:19)
[2023-02-21] MEDS: LACTULOSE 10g/15ml SOLN 473ML PR SCH ×5 (05:20→23:45)
[2023-02-21] MEDS: InsuLIN REG 1unit/0.01ml Soln (100units/ml) SC SCH ×5 (06:00→23:46)
[2023-02-21] MEDS: ACCU-CHEK COMFORT CURVE STRIP VI SCH ×5 (06:00→23:45)
[2023-02-21] MEDS: OCTREOTIDE ACETATE 500 MCG in SODIUM CHL 0.9% 99 ML IV SCH ×2 (08:44→18:33)
[2023-02-21] MEDS: VASOPRESSIN 20 UNITS in SODIUM CHL 0.9% 99 ML IV SCH ×2 (09:40→20:47)
[2023-02-21] MEDS: NYSTATIN TOPICAL POWDER 15GM TOP SCH ×2 (10:19→22:14)
[2023-02-21] MEDS: SODIUM CHLOR 0.9% PF (SALINE LOCK) 10ML VIAL/SYR IV SCH ×2 (10:19→22:13)
[2023-02-21] MEDS: MEROPENEM 500MG IVPB 50 ML IV SCH ×2 (10:19→22:12)
[2023-02-21 10:21] LABS: Base Excess 3.7 mmol/L (-2.0-2.0)
[2023-02-21] MEDS ORDERED: SODIUM PHOSP 40 MEQ in D5W 5% 250 ML IV ONE (12:15)
[2023-02-21] MEDS ORDERED: phytonadione 10 MG in SODIUM CHL 0.9% 50 ML IV ONE (13:15)
[2023-02-21] MEDS ORDERED: POTASSIUM PHOSPHATE 44 MEQ in D5W 5% 250 ML IV ONE (15:30)
[2023-02-21] MEDS: NOREPINEPHRINE BITARTRATE 32 MG in SODIUM CHL 0.9% 218 ML IV SCH (15:45)
[2023-02-21 18:22] LABS: Hematocrit 18.2 % (36.0-46.0)
[2023-02-21] MEDS: BUMETANIDE 2.5mg/10ml (0.25 mg/ml) INJ IV SCH (18:26)
[2023-02-21 18:32] LABS: Hemoglobin 6.2 g/dL (12.2-16.2)
[2023-02-21] MEDS ORDERED: TPN PER PHARMACY IV NR ×7 (20:00)
[2023-02-22] VITALS (117 sets, daily range): BP systolic 90–148; BP diastolic 39–87; PULSE 87–144; RESP 17–19; TEMP 98.2–99.5; O2SAT 93–100
[2023-02-22] MEDS: MIDAZOLAM DRIP 50 mg/50mL 50 ML IV SCH (03:15)
[2023-02-22] MEDS: PANTOPRAZOLE 40mg/50ML NS AE 50 ML IV SCH ×5 (03:45→23:42)
[2023-02-22] MEDS: fentaNYL Drip 2500mCg/250mlNS 250 ML IV SCH (04:44)
[2023-02-22] MEDS: OCTREOTIDE ACETATE 500 MCG in SODIUM CHL 0.9% 99 ML IV SCH ×3 (04:45→23:04)
[2023-02-22] MEDS: ACCU-CHEK COMFORT CURVE STRIP VI SCH ×4 (06:00→23:42)
[2023-02-22] MEDS: InsuLIN REG 1unit/0.01ml Soln (100units/ml) SC SCH ×4 (06:00→23:59)
[2023-02-22] MEDS: LACTULOSE 10g/15ml SOLN 473ML PR SCH ×3 (06:00→18:00)
[2023-02-22] MEDS: BUMETANIDE 2.5mg/10ml (0.25 mg/ml) INJ IV SCH ×2 (06:00→18:16)
[2023-02-22 06:55] LABS: Basophils # (auto) 0.1 10 ^3/uL (0-0.2); Hematocrit 25.2 % (36.0-46.0); Hemoglobin 8.5 g/dL (12.2-16.2); Mean Corpuscular Hgb Conc. 33.6 g/dL (32.0-36.0); Monocytes # (auto) 1.6 10 ^3/uL (0-1.3)
[2023-02-22 06:57] LABS: Basophils % (auto) 1.3 % (0.0-2.0); Eosinophils # (auto) 0.1 10 ^3/uL (0-0.8); Eosinophils % (auto) 0.8 % (0.0-7.0); Lymphocytes # (auto) 2.1 10 ^3/uL (0.4-5.4); Lymphocytes % (auto) 18.6 % (10.0-50.0); Mean Corpuscular Hemoglobin 30.4 pg (28.0-32.0); Mean Corpuscular Volume 90.4 fL (80.0-100.0); Monocytes % (auto) 14.1 % (0.0-12.0); Neutrophils # (auto) 7.5 10 ^3/uL (1.6-8.6); Neutrophils % (auto) 65.2 % (37.0-80.0); Nucleated Red Blood Cells % 0.4 %; Red Blood Cells 2.79 10^6/uL (4.0-5.20); Red Cell Distribution Width 17.8 % (11.8-14.3); White Blood Cell 11.4 10^3/uL (4.4-10.8)
[2023-02-22] MEDS ORDERED: SODIUM CHL 0.9% 1000 ML BAG XX ONE (07:00)
[2023-02-22 07:04] LABS: INR 1.59 (0.9-1.15); Prothrombin Time 16.2 sec (9.3-11.8)
[2023-02-22 07:10] LABS: Alanine Aminotransferase 10 U/L (7-40); Albumin 2.6 g/dL (3.2-4.8); Alkaline Phosphatase 106 U/L (46-116); Anion Gap 3 (5-15); Aspartate Aminotransferase 82 U/L (13-40); BUN/Creatinine Ratio 6.2 (10.0-20.0); Blood Urea Nitrogen 16 mg/dL (9-23); Calcium 7.7 mg/dL (8.7-10.4); Carbon Dioxide 30 mmol/L (20-30); Chloride 105 mmol/L (98-107); Glucose 168 mg/dL (74-106); Magnesium 1.9 mg/dL (1.6-2.6); Potassium 3.8 mmol/L (3.5-5.1); Sodium 138 mmol/L (136-145)
[2023-02-22 07:11] LABS: Bilirubin, Total 7.7 mg/dL (0.2-1.0); Phosphorus 3.1 mg/dL (2.4-5.1); Total Protein 4.6 g/dL (5.7-8.2)
[2023-02-22] MEDS: VASOPRESSIN 20 UNITS in SODIUM CHL 0.9% 99 ML IV SCH ×2 (07:54→19:01)
[2023-02-22] MEDS ORDERED: NALOXONE HCL 0.4 MG/ML VIAL ONE (08:25)
[2023-02-22] MEDS ORDERED: FLUMAZENIL 0.1 MG/ML INJ 10ML MDV IV ONE (08:26)
[2023-02-22] MEDS ORDERED: SODIUM CHLORIDE LOCK 10 ML ONE (08:48)
[2023-02-22] MEDS ORDERED: fentaNYL CITRATE 100 MCG/2 ML VL ONE (08:48)
[2023-02-22] MEDS ORDERED: diphenhdrAMINE HCL 50 MG/1 ML VL ONE (08:48)
[2023-02-22] MEDS ORDERED: MIDAZOLAM HCL 5 MG/ML-1ML VIAL ONE (08:48)
[2023-02-22] MEDS: NYSTATIN TOPICAL POWDER 15GM TOP SCH ×2 (10:14→21:10)
[2023-02-22] MEDS: SODIUM CHLOR 0.9% PF (SALINE LOCK) 10ML VIAL/SYR IV SCH ×2 (10:14→21:10)
[2023-02-22] MEDS: MEROPENEM 500MG IVPB 50 ML IV SCH ×2 (10:16→21:09)
[2023-02-22 10:55] LABS: Base Excess 3.9 mmol/L (-2.0-2.0)
[2023-02-22] MEDS ORDERED: EPINEPHrine HCL 1 MG/10 ML SYRG ONE (15:16)
[2023-02-22] MEDS ORDERED: ROCURONIUM 10MG/ML 10ML VIAL IV ONE (15:41)
[2023-02-22] MEDS: NOREPINEPHRINE BITARTRATE 32 MG in SODIUM CHL 0.9% 218 ML IV SCH (15:45)
[2023-02-22] MEDS ORDERED: TPN PER PHARMACY IV NR ×8 (20:00)
[2023-02-22] MEDS ORDERED: EPOETIN ALFA-EPBX 4,000 UNIT/ML VIAL SC ONE (21:00)
[2023-02-22] MEDS: LACTULOSE 20Gm/30ML SOLN PO SCH (21:17)
[2023-02-23] VITALS (113 sets, daily range): BP systolic 85–146; BP diastolic 37–83; PULSE 92–119; RESP 14–24; TEMP 97.7–99.3; O2SAT 86–100
[2023-02-23] MEDS: MIDAZOLAM DRIP 50 mg/50mL 50 ML IV SCH (02:16)
[2023-02-23] MEDS: fentaNYL Drip 2500mCg/250mlNS 250 ML IV SCH (03:13)
[2023-02-23 04:31] LABS: Alanine Aminotransferase 18 U/L (7-40); Albumin 2.5 g/dL (3.2-4.8); Alkaline Phosphatase 112 U/L (46-116); Anion Gap 4 (5-15); Aspartate Aminotransferase 168 U/L (13-40); Blood Urea Nitrogen 13 mg/dL (9-23); Calcium 8.1 mg/dL (8.7-10.4); Carbon Dioxide 28 mmol/L (20-30); Chloride 105 mmol/L (98-107); Glucose 153 mg/dL (74-106); Magnesium 2.2 mg/dL (1.6-2.6); Potassium 4.2 mmol/L (3.5-5.1); Sodium 137 mmol/L (136-145)
[2023-02-23 04:32] LABS: Bilirubin, Total 7.7 mg/dL (0.2-1.0); Phosphorus 3.1 mg/dL (2.4-5.1); Total Protein 4.7 g/dL (5.7-8.2)
[2023-02-23] MEDS: PANTOPRAZOLE 40mg/50ML NS AE 50 ML IV SCH ×4 (04:32→19:41)
[2023-02-23] MEDS: LACTULOSE 20Gm/30ML SOLN PO SCH ×3 (05:23→21:14)
[2023-02-23] MEDS: ACCU-CHEK COMFORT CURVE STRIP VI SCH ×3 (05:23→17:49)
[2023-02-23] MEDS: BUMETANIDE 2.5mg/10ml (0.25 mg/ml) INJ IV SCH ×2 (05:23→18:07)
[2023-02-23] MEDS: VASOPRESSIN 20 UNITS in SODIUM CHL 0.9% 99 ML IV SCH ×2 (05:24→17:15)
[2023-02-23] MEDS: InsuLIN REG 1unit/0.01ml Soln (100units/ml) SC SCH ×3 (05:47→17:47)
[2023-02-23 08:02] LABS: Hemoglobin 7.6 g/dL (12.2-16.2); Red Cell Distribution Width 18.4 % (11.8-14.3); White Blood Cell 15.6 10^3/uL (4.4-10.8)
[2023-02-23 08:03] LABS: Base Excess 2.1 mmol/L (-2.0-2.0)
[2023-02-23 08:04] LABS: Hematocrit 23.8 % (36.0-46.0); Mean Corpuscular Hemoglobin 30.2 pg (28.0-32.0); Mean Corpuscular Hgb Conc. 32.1 g/dL (32.0-36.0); Mean Corpuscular Volume 94.1 fL (80.0-100.0); Red Blood Cells 2.53 10^6/uL (4.0-5.20)
[2023-02-23 08:09] LABS: Band Neutrophils % (manual) 0; Basophils % (manual) 0 (0.0-2.0); Blast Cells 0; Metamyelocytes % 0; Promyelocytes % 0; Reactive Lymphocytes 0
[2023-02-23] MEDS: NOREPINEPHRINE BITARTRATE 32 MG in SODIUM CHL 0.9% 218 ML IV SCH (08:18)
[2023-02-23 10:37] LABS: Eosinophils % (manual) 2 (0-7); Lymphocytes % (manual) 14 (10.0-50.0); Monocytes % (manual) 16 (0-12); Myelocytes % 1; Platelet Estimate Decreased
[2023-02-23] MEDS: OCTREOTIDE ACETATE 500 MCG in SODIUM CHL 0.9% 99 ML IV SCH ×2 (10:38→19:40)
[2023-02-23] MEDS: SODIUM CHLOR 0.9% PF (SALINE LOCK) 10ML VIAL/SYR IV SCH ×2 (13:01→21:14)
[2023-02-23] MEDS: NYSTATIN TOPICAL POWDER 15GM TOP SCH ×2 (13:01→21:14)
[2023-02-23] MEDS: MEROPENEM 500MG IVPB 50 ML IV SCH (13:02)
[2023-02-23] MEDS ORDERED: EPOETIN ALFA-EPBX 10,000 UNIT/1ML VIAL SC ONE (21:00)
[2023-02-23] MEDS: TPN PER PHARMACY IV NR ×7 (21:13)
[2023-02-23] MEDS: MEROPENEM 1GM IVPB 100 ML IV SCH (21:14)
[2023-02-23 21:28] LABS: Hemoglobin 7.9 g/dL (12.2-16.2)
[2023-02-23 21:30] LABS: Hematocrit 24.6 % (36.0-46.0); Mean Corpuscular Hemoglobin 31.2 pg (28.0-32.0); Mean Corpuscular Volume 97.4 fL (80.0-100.0); Red Blood Cells 2.53 10^6/uL (4.0-5.20); White Blood Cell 15.5 10^3/uL (4.4-10.8)
[2023-02-23 21:32] LABS: Basophils % (manual) 0 (0.0-2.0); Blast Cells 0; Metamyelocytes % 0; Myelocytes % 0; Promyelocytes % 0; Reactive Lymphocytes 0
[2023-02-23 21:42] LABS: INR 1.43 (0.9-1.15); Prothrombin Time 14.7 sec (9.3-11.8)
[2023-02-23 21:54] LABS: Band Neutrophils % (manual) 3; Eosinophils % (manual) 3 (0-7); Lymphocytes % (manual) 18 (10.0-50.0); Monocytes % (manual) 8 (0-12)
[2023-02-23 21:55] LABS: Anisocytosis Slight; Large Platelets FEW; Platelet Estimate Decreased
[2023-02-24] VITALS (111 sets, daily range): BP systolic 101–138; BP diastolic 49–73; PULSE 16–111; RESP 16–23; TEMP 98.1–99.3; O2SAT 97–100
[2023-02-24] MEDS: ACCU-CHEK COMFORT CURVE STRIP VI SCH ×5 (00:04→23:46)
[2023-02-24] MEDS: InsuLIN REG 1unit/0.01ml Soln (100units/ml) SC SCH ×5 (00:07→23:49)
[2023-02-24] MEDS: PANTOPRAZOLE 40mg/50ML NS AE 50 ML IV SCH ×5 (01:03→21:19)
[2023-02-24] MEDS: MIDAZOLAM DRIP 50 mg/50mL 50 ML IV SCH (03:15)
[2023-02-24] MEDS: VASOPRESSIN 20 UNITS in SODIUM CHL 0.9% 99 ML IV SCH ×2 (03:18→15:29)
[2023-02-24 04:20] LABS: Alanine Aminotransferase 43 U/L (7-40); Albumin 2.6 g/dL (3.2-4.8); Alkaline Phosphatase 119 U/L (46-116); Anion Gap 5 (5-15); Aspartate Aminotransferase 425 U/L (13-40); BUN/Creatinine Ratio 6.5 (10.0-20.0); Blood Urea Nitrogen 18 mg/dL (9-23); Calcium 8.2 mg/dL (8.7-10.4); Carbon Dioxide 28 mmol/L (20-30); Chloride 104 mmol/L (98-107); Glucose 158 mg/dL (74-106); Magnesium 2.2 mg/dL (1.6-2.6); Potassium 4.1 mmol/L (3.5-5.1); Sodium 137 mmol/L (136-145)
[2023-02-24 04:21] LABS: Bilirubin, Total 8.2 mg/dL (0.2-1.0); Phosphorus 3.5 mg/dL (2.4-5.1); Total Protein 4.9 g/dL (5.7-8.2)
[2023-02-24] MEDS: fentaNYL Drip 2500mCg/250mlNS 250 ML IV SCH (04:32)
[2023-02-24 04:42] LABS: Triglycerides 63 mg/dL (< 150)
[2023-02-24] MEDS: BUMETANIDE 2.5mg/10ml (0.25 mg/ml) INJ IV SCH (05:18)
[2023-02-24] MEDS: LACTULOSE 20Gm/30ML SOLN PO SCH ×3 (05:18→21:37)
[2023-02-24] MEDS: OCTREOTIDE ACETATE 500 MCG in SODIUM CHL 0.9% 99 ML IV SCH ×3 (05:18→19:47)
[2023-02-24 07:47] LABS: Base Excess 3.3 mmol/L (-2.0-2.0)
[2023-02-24] MEDS: NOREPINEPHRINE BITARTRATE 32 MG in SODIUM CHL 0.9% 218 ML IV SCH (08:44)
[2023-02-24] MEDS ORDERED: ALBUMIN 25% 100 ML IV ONE (11:45)
[2023-02-24] MEDS ORDERED: ALBUMIN 25% 100 ML IV PRN (11:45)
[2023-02-24] MEDS: NYSTATIN TOPICAL POWDER 15GM TOP SCH ×2 (12:05→21:38)
[2023-02-24] MEDS: SODIUM CHLOR 0.9% PF (SALINE LOCK) 10ML VIAL/SYR IV SCH ×2 (12:06→21:38)
[2023-02-24] MEDS ORDERED: HEPARIN 1,000 UNITS/ml 1ML VIAL IV ONE (15:00)
[2023-02-24] MEDS: MEROPENEM 1GM IVPB 100 ML IV SCH ×2 (16:42→21:37)
[2023-02-24] MEDS: TPN PER PHARMACY IV NR ×15 (19:55→20:45)
[2023-02-24 23:30] LABS: Red Cell Distribution Width 18.8 % (11.8-14.3)
[2023-02-24 23:33] LABS: Hematocrit 20.6 % (36.0-46.0); Mean Corpuscular Hemoglobin 32.7 pg (28.0-32.0); Mean Corpuscular Hgb Conc. 33.3 g/dL (32.0-36.0); Mean Corpuscular Volume 98.4 fL (80.0-100.0); Red Blood Cells 2.09 10^6/uL (4.0-5.20); White Blood Cell 11.9 10^3/uL (4.4-10.8)
[2023-02-24 23:57] LABS: Hemoglobin 6.8 g/dL (12.2-16.2)
[2023-02-24 23:58] LABS: Basophils % (manual) 0 (0.0-2.0); Blast Cells 0; Metamyelocytes % 0; Myelocytes % 0; Promyelocytes % 0; Reactive Lymphocytes 0
[2023-02-25] VITALS (121 sets, daily range): BP systolic 88–138; BP diastolic 20–86; PULSE 72–101; RESP 11–23; TEMP 97.5–99.7; O2SAT 96–100
[2023-02-25] MEDS: fentaNYL Drip 2500mCg/250mlNS 250 ML IV SCH ×2 (00:18→18:07)
[2023-02-25] MEDS: VASOPRESSIN 20 UNITS in SODIUM CHL 0.9% 99 ML IV SCH ×2 (02:36→13:43)
[2023-02-25] MEDS ORDERED: AMIODARONE 450mg/250ml AE 250 ML IV SCH ×2 (02:45→08:45)
[2023-02-25] MEDS: MIDAZOLAM DRIP 50 mg/50mL 50 ML IV SCH (03:15)
[2023-02-25 03:39] LABS: Band Neutrophils % (manual) 2; Eosinophils % (manual) 2 (0-7); Lymphocytes % (manual) 23 (10.0-50.0); Monocytes % (manual) 9 (0-12); Platelet Estimate Decreased
[2023-02-25] MEDS: PANTOPRAZOLE 40mg/50ML NS AE 50 ML IV SCH ×5 (04:22→21:45)
[2023-02-25 04:43] LABS: Alanine Aminotransferase 49 U/L (7-40); Albumin 2.7 g/dL (3.2-4.8); Alkaline Phosphatase 111 U/L (46-116); Anion Gap 4 (5-15); Aspartate Aminotransferase 470 U/L (13-40); BUN/Creatinine Ratio 8.9 (10.0-20.0); Bilirubin, Total 7.8 mg/dL (0.2-1.0); Blood Urea Nitrogen 25 mg/dL (9-23); Calcium 8.6 mg/dL (8.7-10.4); Carbon Dioxide 29 mmol/L (20-30); Chloride 104 mmol/L (98-107); Glucose 143 mg/dL (74-106); Magnesium 2.3 mg/dL (1.6-2.6); Phosphorus 3.7 mg/dL (2.4-5.1); Potassium 3.7 mmol/L (3.5-5.1); Sodium 137 mmol/L (136-145)
[2023-02-25] MEDS: OCTREOTIDE ACETATE 500 MCG in SODIUM CHL 0.9% 99 ML IV SCH ×2 (06:17→14:54)
[2023-02-25] MEDS: ACCU-CHEK COMFORT CURVE STRIP VI SCH ×3 (06:17→17:58)
[2023-02-25] MEDS: InsuLIN REG 1unit/0.01ml Soln (100units/ml) SC SCH ×3 (06:18→18:03)
[2023-02-25] MEDS: LACTULOSE 20Gm/30ML SOLN PO SCH ×3 (06:23→22:01)
[2023-02-25 07:43] LABS: Base Excess 1.6 mmol/L (-2.0-2.0)
[2023-02-25 08:47] LABS: Hemoglobin 8.4 g/dL (12.2-16.2); Red Cell Distribution Width 16.9 % (11.8-14.3)
[2023-02-25 08:50] LABS: Hematocrit 24.9 % (36.0-46.0); Mean Corpuscular Hemoglobin 31.9 pg (28.0-32.0); Mean Corpuscular Hgb Conc. 33.6 g/dL (32.0-36.0); Mean Corpuscular Volume 95.1 fL (80.0-100.0); Red Blood Cells 2.62 10^6/uL (4.0-5.20); White Blood Cell 10.5 10^3/uL (4.4-10.8)
[2023-02-25 08:56] LABS: Basophils % (manual) 0 (0.0-2.0); Blast Cells 0; Eosinophils % (manual) 0 (0-7); Metamyelocytes % 0; Myelocytes % 0; Promyelocytes % 0; Reactive Lymphocytes 0
[2023-02-25 08:58] LABS: INR 1.43 (0.9-1.15); Prothrombin Time 14.7 sec (9.3-11.8)
[2023-02-25] MEDS ORDERED: phytonadione 10 MG in SODIUM CHL 0.9% 50 ML IV ONE (09:30)
[2023-02-25] MEDS: SODIUM CHLOR 0.9% PF (SALINE LOCK) 10ML VIAL/SYR IV SCH ×2 (10:00→22:04)
[2023-02-25] MEDS: MEROPENEM 1GM IVPB 100 ML IV SCH ×2 (10:00→22:04)
[2023-02-25] MEDS: NYSTATIN TOPICAL POWDER 15GM TOP SCH ×2 (10:00→22:02)
[2023-02-25 11:00] LABS: Band Neutrophils % (manual) 2; Lymphocytes % (manual) 15 (10.0-50.0); Monocytes % (manual) 7 (0-12)
[2023-02-25 11:01] LABS: Platelet Estimate Decreased
[2023-02-25] MEDS: NOREPINEPHRINE BITARTRATE 32 MG in SODIUM CHL 0.9% 218 ML IV SCH (15:45)
[2023-02-25 19:02] LABS: Hemoglobin 9.5 g/dL (12.2-16.2)
[2023-02-25] MEDS ORDERED: TPN PER PHARMACY IV NR ×8 (20:00)
[2023-02-25] MEDS: TPN PER PHARMACY IV NR ×8 (20:02)
[2023-02-26] VITALS (107 sets, daily range): BP systolic 91–135; BP diastolic 37–73; PULSE 71–121; RESP 12–21; TEMP 97.5–100; O2SAT 95–100
[2023-02-26] MEDS: PANTOPRAZOLE 40mg/50ML NS AE 50 ML IV SCH ×6 (00:17→23:58)
[2023-02-26] MEDS: ACCU-CHEK COMFORT CURVE STRIP VI SCH ×4 (00:18→18:02)
[2023-02-26] MEDS: InsuLIN REG 1unit/0.01ml Soln (100units/ml) SC SCH ×4 (00:30→18:15)
[2023-02-26] MEDS: VASOPRESSIN 20 UNITS in SODIUM CHL 0.9% 99 ML IV SCH ×3 (00:32→23:04)
[2023-02-26] MEDS: MIDAZOLAM DRIP 50 mg/50mL 50 ML IV SCH (00:52)
[2023-02-26] MEDS: OCTREOTIDE ACETATE 500 MCG in SODIUM CHL 0.9% 99 ML IV SCH ×3 (02:27→22:47)
[2023-02-26 04:17] LABS: Hematocrit 27.5 % (36.0-46.0); Hemoglobin 9.4 g/dL (12.2-16.2); Mean Corpuscular Hemoglobin 32.5 pg (28.0-32.0); Mean Corpuscular Volume 95.5 fL (80.0-100.0); Red Blood Cells 2.88 10^6/uL (4.0-5.20); Red Cell Distribution Width 16.1 % (11.8-14.3)
[2023-02-26 04:47] LABS: INR 1.4 (0.9-1.15); Prothrombin Time 14.4 sec (9.3-11.8)
[2023-02-26 04:48] LABS: Albumin 2.9 g/dL (3.2-4.8); Alkaline Phosphatase 131 U/L (46-116); Anion Gap 5 (5-15); Aspartate Aminotransferase 608 U/L (13-40); BUN/Creatinine Ratio 8.2 (10.0-20.0); Basophils % (manual) 0 (0.0-2.0); Blast Cells 0; Blood Urea Nitrogen 21 mg/dL (9-23); Calcium 8.8 mg/dL (8.7-10.4); Carbon Dioxide 28 mmol/L (20-30); Chloride 104 mmol/L (98-107); Glucose 174 mg/dL (74-106); Magnesium 2.4 mg/dL (1.6-2.6); Metamyelocytes % 0; Myelocytes % 0; Phosphorus 2.8 mg/dL (2.4-5.1); Potassium 4.1 mmol/L (3.5-5.1); Promyelocytes % 0; Reactive Lymphocytes 0; Sodium 137 mmol/L (136-145); Total Protein 5.5 g/dL (5.7-8.2)
[2023-02-26 05:36] LABS: Anisocytosis Moderate; Band Neutrophils % (manual) 1; Eosinophils % (manual) 1 (0-7); Hypochromia Slight; Lymphocytes % (manual) 6 (10.0-50.0); Monocytes % (manual) 7 (0-12); Platelet Estimate Decreased
[2023-02-26] MEDS: LACTULOSE 20Gm/30ML SOLN PO SCH ×3 (05:37→21:52)
[2023-02-26 07:25] LABS: Base Excess 3.8 mmol/L (-2.0-2.0)
[2023-02-26 08:59] LABS: Alanine Aminotransferase 66 U/L (7-40)
[2023-02-26] MEDS ORDERED: phytonadione 10 MG in SODIUM CHL 0.9% 50 ML IV ONE (09:00)
[2023-02-26] MEDS: FLUCONAZOLE 200MG/100ML 100 ML IV SCH ×2 (09:28→10:20)
[2023-02-26] MEDS ORDERED: VANCOMYCIN PER PHARMACY 0 MG IV SCH (10:00)
[2023-02-26] MEDS ORDERED: LINEZOLID 600MG/300ML 300 ML IV SCH (10:00)
[2023-02-26] MEDS ORDERED: VANCOMYCIN 1GM/250ML 250 ML IV ONE (10:00)
[2023-02-26] MEDS: rifAXIMin 550 MG TAB PO SCH ×2 (10:20→21:52)
[2023-02-26] MEDS: SODIUM CHLOR 0.9% PF (SALINE LOCK) 10ML VIAL/SYR IV SCH ×2 (10:21→21:52)
[2023-02-26] MEDS: MEROPENEM 1GM IVPB 100 ML IV SCH ×2 (10:21→12:11)
[2023-02-26] MEDS: NYSTATIN TOPICAL POWDER 15GM TOP SCH ×2 (10:21→21:52)
[2023-02-26] MEDS: fentaNYL Drip 2500mCg/250mlNS 250 ML IV SCH ×2 (11:31→19:52)
[2023-02-26] MEDS: DOPamine 1600MCG/ML D5W 250 ML IV SCH (12:18)
[2023-02-26] MEDS ORDERED: TPN PER PHARMACY IV NR ×8 (20:00)
[2023-02-26] MEDS: NOREPINEPHRINE BITARTRATE 32 MG in SODIUM CHL 0.9% 218 ML IV SCH (20:21)
[2023-02-27] VITALS (94 sets, daily range): BP systolic 26–134; BP diastolic 32–71; PULSE 70–104; RESP 11–22; TEMP 97.9–99.1; O2SAT 97–100
[2023-02-27] MEDS: ACCU-CHEK COMFORT CURVE STRIP VI SCH ×4 (00:07→18:40)
[2023-02-27] MEDS: InsuLIN REG 1unit/0.01ml Soln (100units/ml) SC SCH ×4 (00:07→18:42)
[2023-02-27] MEDS: fentaNYL Drip 2500mCg/250mlNS 250 ML IV SCH ×3 (02:50→18:42)
[2023-02-27] MEDS: MIDAZOLAM DRIP 50 mg/50mL 50 ML IV SCH (03:15)
[2023-02-27 04:07] LABS: Basophils # (auto) 0.2 10 ^3/uL (0-0.2); Basophils % (auto) 1.4 % (0.0-2.0); Eosinophils # (auto) 0.3 10 ^3/uL (0-0.8); Eosinophils % (auto) 2.2 % (0.0-7.0); Hematocrit 28.1 % (36.0-46.0); Hemoglobin 9.3 g/dL (12.2-16.2); Lymphocytes % (auto) 16.7 % (10.0-50.0); Mean Corpuscular Hgb Conc. 32.9 g/dL (32.0-36.0); Monocytes # (auto) 1.3 10 ^3/uL (0-1.3); Monocytes % (auto) 10.8 % (0.0-12.0); Neutrophils # (auto) 8.3 10 ^3/uL (1.6-8.6); Neutrophils % (auto) 68.9 % (37.0-80.0); Nucleated Red Blood Cells % 0.3 %; Red Blood Cells 2.89 10^6/uL (4.0-5.20); Red Cell Distribution Width 16.8 % (11.8-14.3)
[2023-02-27] MEDS: NOREPINEPHRINE BITARTRATE 32 MG in SODIUM CHL 0.9% 218 ML IV SCH (04:08)
[2023-02-27 04:26] LABS: Alanine Aminotransferase 58 U/L (7-40); Alkaline Phosphatase 124 U/L (46-116); Anion Gap 7 (5-15); BUN/Creatinine Ratio 9.1 (10.0-20.0); Blood Urea Nitrogen 27 mg/dL (9-23); Calcium 8.9 mg/dL (8.7-10.4); Carbon Dioxide 25 mmol/L (20-30); Chloride 103 mmol/L (98-107); Glucose 144 mg/dL (74-106); Magnesium 2.6 mg/dL (1.6-2.6); Potassium 4.1 mmol/L (3.5-5.1); Sodium 135 mmol/L (136-145)
[2023-02-27 04:27] LABS: Albumin 2.9 g/dL (3.2-4.8); Aspartate Aminotransferase 531 U/L (13-40); Bilirubin, Total 8.3 mg/dL (0.2-1.0); Phosphorus 3.9 mg/dL (2.4-5.1); Total Protein 5.5 g/dL (5.7-8.2)
[2023-02-27 04:30] LABS: INR 1.36 (0.9-1.15)
[2023-02-27] MEDS: LACTULOSE 20Gm/30ML SOLN PO SCH ×2 (06:00→15:30)
[2023-02-27] MEDS: PANTOPRAZOLE 40mg/50ML NS AE 50 ML IV SCH ×3 (06:02→16:51)
[2023-02-27 09:03] LABS: Base Excess 0.6 mmol/L (-2.0-2.0)
[2023-02-27] MEDS: OCTREOTIDE ACETATE 500 MCG in SODIUM CHL 0.9% 99 ML IV SCH ×2 (09:37→20:29)
[2023-02-27] MEDS: MEROPENEM 1GM IVPB 100 ML IV SCH (09:42)
[2023-02-27] MEDS: rifAXIMin 550 MG TAB PO SCH (09:44)
[2023-02-27] MEDS: SODIUM CHLOR 0.9% PF (SALINE LOCK) 10ML VIAL/SYR IV SCH (09:44)
[2023-02-27] MEDS: VASOPRESSIN 20 UNITS in SODIUM CHL 0.9% 99 ML IV SCH ×2 (10:11→21:16)
[2023-02-27] MEDS ORDERED: VANCOMYCIN 1GM/250ML 250 ML IV ONE (11:45)
[2023-02-27] MEDS: DOPamine 1600MCG/ML D5W 250 ML IV SCH (16:54)
[2023-02-27] MEDS ORDERED: TPN PER PHARMACY IV NR ×9 (20:00)
[2023-02-28] MEDS ORDERED: SODIUM CHL 0.9% 1000 ML BAG XX ONE (07:00)
[2023-02-28] MEDS ORDERED: EPOETIN ALFA-EPBX 10,000 UNIT/1ML VIAL SC ONE (21:00)
== END 2023-02-27 21:45 | disposition short-term general hospital (02) | DRG 720 ==
LOC: ER 20:26 → EDBD 20:26 → TELE 02-14 07:18 → UNDODISIN 02-15 17:30 → ICU WEST 02-15 23:54
PROVIDERS: ADMIT Internal Medicine; ATTEND Internal Medicine
PROC: 5A1955Z Respiratory Ventilation, Greater than 96 Consecutive Hours (ICD-10-PCS; principal; 2023-02-14)
PROC: 0BH17EZ Insertion of Endotracheal Airway into Trachea, Via Natural or Artificial Opening (ICD-10-PCS; 2023-02-14)
PROC: 30233N1 Transfusion of Nonautologous Red Blood Cells into Peripheral Vein, Percutaneous Approach (ICD-10-PCS; 2023-02-14)
PROC: 30233L1 Transfusion of Nonautologous Fresh Plasma into Peripheral Vein, Percutaneous Approach (ICD-10-PCS; 2023-02-14)
PROC: 05HY33Z Insertion of Infusion Device into Upper Vein, Percutaneous Approach (ICD-10-PCS; 2023-02-17)
PROC: B54BZZA Ultrasonography of Right Lower Extremity Veins, Guidance (ICD-10-PCS; 2023-02-17)
PROC: 5A1D70Z Performance of Urinary Filtration, Intermittent, Less than 6 Hours Per Day (ICD-10-PCS; 2023-02-18)
PROC: 06HY33Z Insertion of Infusion Device into Lower Vein, Percutaneous Approach (ICD-10-PCS; 2023-02-18)
PROC: B54BZZA Ultrasonography of Right Lower Extremity Veins, Guidance (ICD-10-PCS; 2023-02-18)
PROC: 5A1D70Z Performance of Urinary Filtration, Intermittent, Less than 6 Hours Per Day (ICD-10-PCS; 2023-02-19)
PROC: 30233N1 Transfusion of Nonautologous Red Blood Cells into Peripheral Vein, Percutaneous Approach (ICD-10-PCS; 2023-02-20)
PROC: 5A1D70Z Performance of Urinary Filtration, Intermittent, Less than 6 Hours Per Day (ICD-10-PCS; 2023-02-21)
PROC: 0DB68ZX Excision of Stomach, Via Natural or Artificial Opening Endoscopic, Diagnostic (ICD-10-PCS; 2023-02-22)
PROC: 30233N1 Transfusion of Nonautologous Red Blood Cells into Peripheral Vein, Percutaneous Approach (ICD-10-PCS; 2023-02-22)
PROC: 5A1D70Z Performance of Urinary Filtration, Intermittent, Less than 6 Hours Per Day (ICD-10-PCS; 2023-02-23)
PROC: 5A1D70Z Performance of Urinary Filtration, Intermittent, Less than 6 Hours Per Day (ICD-10-PCS; 2023-02-24)
PROC: 5A1D70Z Performance of Urinary Filtration, Intermittent, Less than 6 Hours Per Day (ICD-10-PCS; 2023-02-25)
DX: A41.9 Sepsis, unspecified organism (principal); K76.7 Hepatorenal syndrome; N17.0 Acute kidney failure with tubular necrosis; J96.01 Acute respiratory failure with hypoxia; J96.02 Acute respiratory failure with hypercapnia; R65.21 Severe sepsis with septic shock; E87.20 Acidosis, unspecified; D62 Acute posthemorrhagic anemia; Z20.822 Contact with and (suspected) exposure to COVID-19; K70.40 Alcoholic hepatic failure without coma; K76.82 Hepatic encephalopathy; K29.71 Gastritis, unspecified, with bleeding; R04.0 Epistaxis; N39.0 Urinary tract infection, site not specified; N18.9 Chronic kidney disease, unspecified; K76.0 Fatty (change of) liver, not elsewhere classified; K70.31 Alcoholic cirrhosis of liver with ascites; D68.9 Coagulation defect, unspecified; E11.22 Type 2 diabetes mellitus with diabetic chronic kidney disease; E87.70 Fluid overload, unspecified; I12.9 Hypertensive chronic kidney disease with stage 1 through stage 4 chronic kidney disease, or unspecified chronic kidney disease; B19.10 Unspecified viral hepatitis B without hepatic coma; D69.6 Thrombocytopenia, unspecified; L03.115 Cellulitis of right lower limb; L03.116 Cellulitis of left lower limb; Z83.3 Family history of diabetes mellitus
CPT/HCPCS: 36415; 36430; 36569; 36600; 70450; 71045; 74018; 80048; 80053; 80074; 80202; 81001; 82105; 82140; 82248; 82570; 82805; 82962; 83540; 83550; 83735; 83880; 83935; 84100; 84156; 84300; 84478; 84702; 85007; 85014; 85018; 85025; 85027; 85610; 85730; 86704; 86706; 86708; 86803; 86850; 86900; 86901; 86920; 87040; 87070; 87077; 87081; 87186; 87205; 87340; 87426; 90935; 94002; 94003; C9113; G0378; J0696; J1450; J1642; J1815; J2185; J2250; J3430; J3480; J3490; J7060; J7131; P9047